=== PATIENT | female | born 1960 | race Two or more races ===

== ENCOUNTER 2020-01-13 14:31 | Outpatient (REF) | payer MEDICAID, SELFPAY ==
--- NOTE | 2020-01-13 | US_ITS ---
EXAMINATION: US RETROPERITONEAL LIMITED (RENAL ONLY) CLINICAL INFORMATION: Renal stones. COMPARISON: Renal ultrasound 05/31/2019 and 12/01/2018. KUB 01/20/2019 and 09/16/2018. CT abdomen and pelvis 12/21/2018. TECHNIQUE: Real-time imaging of the kidneys. FINDINGS: RIGHT KIDNEY: 12.6 x 5.0 x 6.0 cm (SAG x AP x TRV). The kidney is normal in size, contour, and echogenicity. Renal cortical thickness is normal. No focal solid mass or cyst seen. There are 3 echogenic stones: 1. The mid pole stone measures 0.3 x 0.3 x 0.2 cm. 2. A lower pole echogenic stone measures 0.3 x 0.3 x 0.3 cm. 3. A lower pole echogenic stone measures 0.3 x 0.4 x 0.3 cm. There is mild pelvic caliectasis, but no hydronephrosis. LEFT KIDNEY: 12.1 x 5.8 x 5.6 cm (SAG x AP x TRV). The kidney is normal in size, contour, and echogenicity. Renal cortical thickness is normal. No focal parenchymal lesions or hydronephrosis. There is an echogenic stone lower pole measuring 0.3 x 0.2 x 0.3 cm. US/US renal BI IMPRESSION: Nonobstructive echogenic calculi with mild pelvic caliectasis right kidney. No hydronephrosis seen. Echogenic stone left kidney without hydronephrosis.
== END 2020-01-13 14:32 | disposition home or self-care (01) ==
LOC: HO.US 14:31
PROVIDERS: Visit Provider Urology
DX: N20.0 Calculus of kidney (principal)
CPT/HCPCS: 76775

== ENCOUNTER 2020-02-28 13:41 | Outpatient (REF) | payer MEDICAID, SELFPAY | END 2020-02-28 13:42 | disposition home or self-care (01) | LOC: HO.LAB 13:41 | PROVIDERS: Visit Provider Internal Medicine | DX: Z20.828 Contact with and (suspected) exposure to other viral communicable diseases (principal) | CPT/HCPCS: C9803; U0003 ==

== ENCOUNTER 2020-05-03 13:06 | Outpatient (REF) | payer MEDICAID, SELFPAY ==
--- NOTE | ~2020-05-03 | US_ITS ---
EXAMINATION: US RETROPERITONEAL LIMITED (RENAL ONLY) CLINICAL INFORMATION: Kidney stones. COMPARISON: Renal ultrasound 01/13/2020 and 05/31/2019. KUB 01/20/2019 and 09/16/2018. CT abdomen and pelvis 12/21/2018. TECHNIQUE: Real-time imaging of the kidneys. FINDINGS: RIGHT KIDNEY: 11.9 x 5.1 x 6.7 cm (SAG x AP x TRV). The kidney is normal in size, contour, and echogenicity. Renal cortical thickness is normal. No focal parenchymal lesions or hydronephrosis. LEFT KIDNEY: 11.0 x 5.7 x 5.8 cm (SAG x AP x TRV). The kidney is normal in size, contour, and echogenicity. Renal cortical thickness is normal. No focal parenchymal lesions or hydronephrosis. US/US renal BI IMPRESSION: No significant renal abnormality.
== END 2020-05-03 13:07 | disposition home or self-care (01) ==
LOC: HO.US 13:06
PROVIDERS: Visit Provider Internal Medicine Hypertension Specialist
DX: N20.0 Calculus of kidney (principal)
CPT/HCPCS: 76775

== ENCOUNTER 2020-11-07 11:15 | Emergency (ER) | payer MEDICAID, SELFPAY ==
--- NOTE | 2020-11-07 | ECG_ITS ---
Test Reason : CHEST PAIN Blood Pressure : / mmHG Vent. Rate : 094 BPM Atrial Rate : 094 BPM P-R Int : 158 ms QRS Dur : 120 ms QT Int : 402 ms P-R-T Axes : 067 018 073 degrees QTc Int : 502 ms Normal sinus rhythm Non-specific intra-ventricular conduction delay Borderline ECG When compared with ECG of 07-NOV-2020 12:20, No significant change was found Referred By: Nadia Beard Electronically Signed By:LANCE MART
--- NOTE | ~2020-11-07 | XR_ITS ---
EXAMINATION: XR CHEST CLINICAL INFORMATION: Chest pain. COMPARISON: 10/29/2016 chest radiographs. TECHNIQUE: Frontal view of the chest was obtained. FINDINGS: The lungs are clear. The heart is unremarkable. A probable right epicardial fat pad is noted without interval change. The mediastinal structures are unremarkable. XR/XR chest 1V IMPRESSION: Stable chest. No acute cardiopulmonary process. .
[2020-11-07 12:14] VITALS: BP 176/100; PULSE 101; RESP 16; TEMP 36.9; O2SAT 95; BMI 49.6
--- NOTE | 2020-11-07 12:16 | ECG_ITS ---
Test Reason : CHEST PRESSURE Blood Pressure : / mmHG Vent. Rate : 097 BPM Atrial Rate : 097 BPM P-R Int : 160 ms QRS Dur : 110 ms QT Int : 388 ms P-R-T Axes : 068 015 069 degrees QTc Int : 492 ms Normal sinus rhythm Prolonged QT Abnormal ECG When compared with ECG of 29-OCT-2016 19:33, No significant change was found Referred By: Generic ED Physician Electronically Signed By:LANCE MART
[2020-11-07 13:01] LABS: MANUAL DIFF FLAG NO
[2020-11-07 13:04] LABS: Basophils Percent Auto 0.3 % (0-2); Eosinophils Absolute Auto 0.1 X10*3/uL (0.0-0.4); Eosinophils Percent Auto 1.5 % (0-4); Hematocrit 44.7 % (37-47); Hemoglobin 14.4 g/dl (12.0-16.0); Imm Gran Abs Auto 0.04 X10*3/uL (0.00-0.03); Imm Gran Pct Auto 0.4 % (0.0-0.4); Lymphocytes Absolute Auto 3.5 X10*3/uL (1.2-4.9); Lymphocytes Percent Auto 38.4 % (20-40); Mean Corpuscular HGB Conc 32.2 g/dl (31.0-35.0); Mean Corpuscular Hemoglobin 26.5 pg (27.0-33.0); Mean Corpuscular Volume 82.3 fL (80-98); Mean Platelet Volume 11.5 fL (9.4-12.3); Monocytes Absolute Auto 0.4 X10*3/uL (0.1-1.2); Monocytes Percent Auto 4.4 % (2-11); Neutrophils Absolute Auto 5.1 X10*3/uL (2.0-8.3); Platelet Count 245 X10*3/uL (160-400); Red Blood Count 5.43 X10*6/uL (4.20-5.50); Red Cell Distribution Width 13.9 % (11.0-16.0); White Blood Count 9.2 X10*3/uL (4.8-10.8)
[2020-11-07 13:39] LABS: Anion Gap 14 (12-20); Blood Urea Nitrogen 10 mg/dL (9-16); Calcium 9.9 mg/dL (8.4-10.2); Carbon Dioxide 29 mmol/L (22-29); Chloride 103 mmol/L (96-108); Creatinine Clr Calc Pharmacy 84.5; Estimated Glomerular Filt Rate > 60; Glucose Random 109 mg/dL (60-115); Potassium 4.1 mmol/L (3.3-5.1); Sodium 142 mmol/L (135-145)
[2020-11-07 13:43] LABS: Troponin-I High Sensitivity < 3.5 ng/L (<3.5-17.0)
--- NOTE | 2020-11-07 13:50 | ED.CHESTPAIN ---
HPI - Chest Pain General Chief Complaint: Chest Pain Stated Complaint: chest tightness, headache Time Seen by Provider: 11/07/20 13:50 Source: patient and bariatric physician Mode of arrival: ambulatory Limitations: no limitations History of Present Illness HPI narrative: 60 yo female here with 5 days of heaches and chest tightness no other symptoms states she doesn't usually get headaches she also notes that she always has chest pain - no trauma MD complaint: chest discomfort Onset (ago): day(s) (5 (but chronic)) Timing of current episode: constant Prior episodes: Yes Onset: during rest and during exertion Pain location: substernal Pain radiation: none Severity: moderate Quality: tightness Relieving factors: nothing Exacerbating factors: nothing Context: other (states also c/o headache as well) Associated symptoms: other (headaches gradual onset in the back no other symptoms tried advil without relief) Treatment prior to arrival: none Related Data Home Medications Medication Instructions Recorded Confirmed aspirin 81 mg tablet,delayed 81 mg PO DAILY 03/03/20 release (Adult Aspirin Regimen) atorvastatin 40 mg tablet 40 mg PO DAILY 03/03/20 bisacodyl 5 mg tablet,delayed 5 mg PO BEDTIME 03/03/20 release (Dulcolax (bisacodyl)) bupropion HCl 150 mg 24 hr tablet, 150 mg PO QAM 03/03/20 extended release clonazepam 1 mg tablet 1 mg PO DAILY 03/03/20 docusate sodium 100 mg capsule 100 mg PO DAILY 03/03/20 (DOK) glimepiride 2 mg tablet 2 mg PO DAILY 03/03/20 lisinopril 20 mg tablet 20 mg PO DAILY 03/03/20 metformin 1,000 mg tablet 1,000 mg PO DAILY 03/03/20 omeprazole 20 mg capsule,delayed 20 mg PO DAILY 03/03/20 release sertraline 50 mg tablet 50 mg PO DAILY 03/03/20 Previous Rx's Medication Instructions Recorded vnjbbysypr-hjuavpgmyeteq-ogsnajiv 1 tab PO Q6H PRN #20 tab 11/07/20 50 mg-325 mg-40 mg tablet Allergies Allergy/AdvReac Type Severity Reaction Status Date / Time No Known Allergies Allergy Unverified 12/02/19 16:55 [No Known Allergies*] Review of Systems Review of Systems: Constitutional : No Weight loss, No Fever, No Chills ENT/Mouth : No sore throat, No Rhinorrhea Eyes: No Eye Pain, No Swelling Cardiovascular : pos Chest Pain, no SOB, no Dyspnea on Exertion, No Orthopnea, No Edema, No Palpitations Respiratory : No Cough, No Sputum Gastrointestinal : no Nausea, No Vomiting, No Diarrhea, No abdominal Pain, No Hematochezia, No Melena Genitourinary : No Dysuria, No Urinary Frequency Musculoskeletal : No joint pain, No Myalgias, No Joint Swelling Skin : No Skin Lesions, No rash Neuro : No Weakness, No Numbness, No Dizziness, pos Headache Psych : No Anxiety/Panic, No Depression Heme/Lymph: No Bruising, No Lymphadenopathy Endocrine : No Polyuria, No Polydipsia All other systems reviewed and are negative [facility] Past Medical History Attestation statement: The following information was validated with the patient. Medical History Anxiety Asthma Depression GERD (gastroesophageal reflux disease) Hypercholesteremia Hypertension Social History Social History (Updated 11/07/20 @ 14:22 by Nadia Beard DO) Patient Tobacco Use Status: Never used Tobacco Advance Directives: No Advance Directives Information Provided: No Patient : No Physical Exam Vital Signs: Vital Signs: Last Vital Signs Temp 98.5 F 11/07/20 12:14 Pulse 87 11/07/20 15:32 Resp 18 11/07/20 15:32 BP 154/88 H 11/07/20 15:32 Pulse Ox 95 11/07/20 15:32 Body Mass Index 49.6 Course Course Course Narrative: VS drastically improved, stable for DC work up negative asking for food and watching TV MDM - Chest Pain MDM Narrative Medical decision making narrative: 60 yo female with hx of HTN, HLD, here with vague chest pain x 5 days which happens often to her seems atypical for ACS, not pleuritic in nature, states this happens all the time which seems unusual for PE, she also c/o headache no fevers, normal neuro not toxic no AC therapy, gradual onset seems atypical for SAH/[employer]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 infection Lab Data Result diagrams: 11/07/20 12:53 11/07/20 12:53 Labs: Lab Results 11/07/20 11/07/20 11/07/20 Range/Units 12:53 12:53 12:53 WBC 9.2 (4.8-10.8) X10*3/uL RBC 5.43 (4.20-5.50) X10*6/uL Hgb 14.4 (12.0-16.0) g/dl Hct 44.7 (37-47) % MCV 82.3 (80-98) fL MCH 26.5 L (27.0-33.0) pg MCHC 32.2 (31.0-35.0) g/dl RDW 13.9 (11.0-16.0) % Plt Count 245 (160-400) X10*3/uL MPV 11.5 (9.4-12.3) fL Immature Gran % (Auto) 0.4 (0.0-0.4) % Neut % (Auto) 55.0 (45-73) % Lymph % (Auto) 38.4 (20-40) % [place] % (Auto) 4.4 (2-11) % Eos % (Auto) 1.5 (0-4) % Baso % (Auto) 0.3 (0-2) % Lymph # (Auto) 3.5 (1.2-4.9) X10*3/uL [place] # (Auto) 0.4 (0.1-1.2) X10*3/uL Eos # (Auto) 0.1 (0.0-0.4) X10*3/uL Baso # (Auto) 0.0 (0.0-0.2) X10*3/uL Abs Immat Gran (auto) 0.04 H (0.00-0.03) X10*3/uL Absolute Neuts (auto) 5.1 (2.0-8.3) X10*3/uL Absolute Nucleated RBC 0.000 (0.0-0.012) X10*3/uL Nucleated RBC % (auto) 0.0 (0.0-0.2) /100WBC Sodium 142 (135-145) mmol/L Potassium 4.1 (3.3-5.1) mmol/L Chloride 103 (96-108) mmol/L Carbon Dioxide 29 (22-29) mmol/L Anion Gap 14 (12-20) BUN 10 (9-16) mg/dL Creatinine 0.84 (0.5-1.4) mg/dL Estim Creat Clear Calc 84.5 Estimated GFR > 60 Random Glucose 109 (60-115) mg/dL Calcium 9.9 (8.4-10.2) mg/dL Troponin I High Sens < 3.5 (<3.5-17.0) ng/L COVID-19 (CLYDE) (Negative) COVID-19 Clin Com 11/07/20 Range/Units 14:02 WBC (4.8-10.8) X10*3/uL RBC (4.20-5.50) X10*6/uL Hgb (12.0-16.0) g/dl Hct (37-47) % MCV (80-98) fL MCH (27.0-33.0) pg MCHC (31.0-35.0) g/dl RDW (11.0-16.0) % Plt Count (160-400) X10*3/uL MPV (9.4-12.3) fL Immature Gran % (Auto) (0.0-0.4) % Neut % (Auto) (45-73) % Lymph % (Auto) (20-40) % [place] % (Auto) (2-11) % Eos % (Auto) (0-4) % Baso % (Auto) (0-2) % Lymph # (Auto) (1.2-4.9) X10*3/uL [place] # (Auto) (0.1-1.2) X10*3/uL Eos # (Auto) (0.0-0.4) X10*3/uL Baso # (Auto) (0.0-0.2) X10*3/uL Abs Immat Gran (auto) (0.00-0.03) X10*3/uL Absolute Neuts (auto) (2.0-8.3) X10*3/uL Absolute Nucleated RBC (0.0-0.012) X10*3/uL Nucleated RBC % (auto) (0.0-0.2) /100WBC Sodium (135-145) mmol/L Potassium (3.3-5.1) mmol/L Chloride (96-108) mmol/L Carbon Dioxide (22-29) mmol/L Anion Gap (12-20) BUN (9-16) mg/dL Creatinine (0.5-1.4) mg/dL Estim Creat Clear Calc Estimated GFR Random Glucose (60-115) mg/dL Calcium (8.4-10.2) mg/dL Troponin I High Sens (<3.5-17.0) ng/L COVID-19 (CLYDE) Negative (Negative) COVID-19 Clin Com See Note ECG Data ECG #1: Attestation: I personally reviewed and interpreted this ECG as follows: ECG interpretation date: 11/07/20 ECG interpretation time: 13:59 Interpretation: Rate: 94 Rhythm: NSR [place]: normal Normal P waves. Normal SHAHBAZ. Normal QRS complex. ST T wave : inverted aVL no JIMBO qTC: normal prior studies: no acute ischemia, no sig change from priors The study has been interpreted contemporaneously by me. . Discharge Plan Discharge Clinical Impression: Atypical chest pain Acute tension headache Qualifiers: Intractability: not intractable Qualified Code(s): G44.209 - Tension-type headache, unspecified, not intractable Patient Disposition: Home, Self-Care Instructions: Chest Pain (ED), Acute Headache (ED) Additional Instructions: return to ED for any worsening symptoms or concerns Prescriptions: New enerjxrcdh-itcxaqdfkqica-mhkl 50-325-40 mg tablet 1 tab PO Q6H PRN (Reason: pain) Qty: 20 RF: 0 Referrals: Beba Whitten MD [Primary Care Provider] - 2 days (if not better) Print Language: [place] Islander
[2020-11-07] MEDS: Butalb/Acetamin/Caff 50/325/40 TABLET 1 TAB PO (14:20)
[2020-11-07] MEDS: Cyclobenzaprine HCl 10 MG TABLET PO (14:22)
[2020-11-07 14:26] LABS: COVID-19 Test Negative (Negative); IDNOW Serial# 9DD0AD1C
[2020-11-07 15:32] VITALS: BP 154/88; PULSE 87; RESP 18; O2SAT 95
== END 2020-11-07 15:48 | disposition home or self-care (01) ==
PROVIDERS: Emergency Provider Emergency Medicine; PCP Internal Medicine
DX: R07.89 Other chest pain (principal); G44.209 Tension-type headache, unspecified, not intractable; I10 Essential (primary) hypertension; E78.5 Hyperlipidemia, unspecified; Z20.822 Contact with and (suspected) exposure to COVID-19; Z79.82 Long term (current) use of aspirin; Z79.02 Long term (current) use of antithrombotics/antiplatelets; Z79.899 Other long term (current) drug therapy
CPT/HCPCS: 36415; 71045; 80048; 84484; 85025; 87635; 93005; 99284

== ENCOUNTER → 2020-12-07 08:21 | Outpatient (BNVA) | payer MEDICAID, SELFPAY | PROVIDERS: PCP Internal Medicine; Visit Provider Nurse Practitioner ==

== ENCOUNTER → 2021-01-09 15:37 | Outpatient (BNVA) | payer MEDICAID, SELFPAY | PROVIDERS: PCP Internal Medicine; Visit Provider Nurse Practitioner ==

== ENCOUNTER 2021-01-10 11:14 | Outpatient (REF) | payer MEDICAID, SELFPAY ==
--- NOTE | ~2021-01-10 | MM_ITS ---
EXAMINATION: MM SCREENING DIGITAL BREAST TOMOSYNTHESIS, BILATERAL CLINICAL INFORMATION: Screening. Asymptomatic. The lifetime risk of breast cancer based on the Tyrer-Cuzick Model is 6%. COMPARISON: Mammography: 07/18/2017, 06/19/2016, 10/26/2010 TECHNIQUE: Digital breast tomosynthesis is performed in both the craniocaudal and mediolateral oblique views along with computer-aided detection (CAD). Synthesized 2D images are generated from the tomosynthesis. FINDINGS: There are scattered areas of fibroglandular density (ACR BI-RADS breast composition Category b). There are no significant masses, abnormal calcifications, or other abnormalities. The axilla and skin contours are unremarkable. No significant changes. MM/MM tomosynthesis screening BI IMPRESSION: No mammographic evidence of malignancy. ASSESSMENT: BI-RADS 1: Negative RECOMMENDATION: Routine annual mammography screening. This patient's information was entered into a reminder system with a target due date for their next mammogram.
== END 2021-01-10 11:15 | disposition home or self-care (01) ==
LOC: HO.MAMMO 11:14
PROVIDERS: Visit Provider Internal Medicine
DX: Z12.31 Encounter for screening mammogram for malignant neoplasm of breast (principal)
CPT/HCPCS: 77063; 77067

== ENCOUNTER 2021-07-11 11:09 | Outpatient (RCR) | payer MEDICAID, SELFPAY ==
--- NOTE | 2021-08-08 10:54 | MHC.OT.DC ---
[address] [phone] F: [phone] Occupational Therapy Discharge Note Provider: Beba Whitten Diagnosis: B/L DEQUERVAIN'S TENOSYNOVITIS Date of Evaluation: 07/11/21 Date of Discharge: 08/08/21 Treatments to Date: 1 Cancellations to Date: 2 No Shows to Date: 4 Discharge Status: Visit Non-compliance Discharge Summary: MS HUMAIRA MELVIN ATTENDED HER INITIAL EVAL AND FAILED TO FOLLOW UP FOR ADDITIONAL VISITS. SHE WILL BE DISCHARGED DUE TO THE CORE NO SHOW ATTENDANCE POLICY. Electronically Signed By: RAVINDER FRAUSTO OTR/Bird Reviewed/agree with student documentation: N/A Therapist: Please Sign and return to therapist, thank you for your referral.
== END 2021-08-08 10:50 | disposition home or self-care (01) ==
LOC: HO.OT 11:09
PROVIDERS: PCP Internal Medicine; Visit Provider Internal Medicine
DX: M65.4 Radial styloid tenosynovitis [de Quervain] (principal)
CPT/HCPCS: 29130; 97110; 97166; 97760

== ENCOUNTER → 2022-01-02 11:13 | Outpatient (BNVA) | payer MEDICAID, SELFPAY | PROVIDERS: PCP Internal Medicine; Visit Provider Nurse Practitioner | DX: K59.04 Chronic idiopathic constipation (principal); K21.9 Gastro-esophageal reflux disease without esophagitis; R10.13 Epigastric pain; Z86.19 Personal history of other infectious and parasitic diseases | CPT/HCPCS: 99212 ==

== ENCOUNTER 2022-01-25 07:25 | Outpatient (REF) | payer MEDICAID, SELFPAY ==
--- NOTE | ~2022-01-25 | MM_ITS ---
EXAMINATION: MM SCREENING DIGITAL BREAST TOMOSYNTHESIS, BILATERAL CLINICAL INFORMATION: Screening. Asymptomatic. COMPARISON: Mammography: 01/10/2021, 07/18/2017, 06/19/2016 TECHNIQUE: Digital breast tomosynthesis is performed in both the craniocaudal and mediolateral oblique views along with computer-aided detection (CAD). Synthesized 2D images are generated from the tomosynthesis. FINDINGS: There are scattered areas of fibroglandular density (ACR BI-RADS breast composition Category b). There are no significant masses, abnormal calcifications, or other abnormalities. No developing density or architectural abnormality. Incidental small right axillary tail node similar to prior exam. The axilla and skin contours are unremarkable. MM/MM tomosynthesis screening BI IMPRESSION: No mammographic evidence of malignancy. ASSESSMENT: BI-RADS 2: Benign RECOMMENDATION: Routine annual mammography screening. This patient's information was entered into a reminder system with a target due date for their next mammogram.
== END 2022-01-25 07:26 | disposition home or self-care (01) ==
LOC: HO.MAMMO 07:25
PROVIDERS: PCP Internal Medicine; Visit Provider Internal Medicine
DX: Z12.31 Encounter for screening mammogram for malignant neoplasm of breast (principal)
CPT/HCPCS: 77063; 77067

== ENCOUNTER 2022-05-30 10:47 | Outpatient (REF) | payer MEDICAID, SELFPAY ==
--- NOTE | ~2022-05-30 | US_ITS ---
EXAMINATION: US RETROPERITONEAL LIMITED (RENAL ONLY) CLINICAL INFORMATION: Kidney stones. COMPARISON: Ultrasound retroperitoneal limited (renal only) 12/18/2020 and 05/03/2020. X-ray abdomen KUB 01/20/2019. CT abdomen without contrast 12/21/2018. X-ray abdomen KUB 09/16/2018. TECHNIQUE: Real-time imaging of the kidneys. FINDINGS: RIGHT KIDNEY: 12.2 x 4.5 x 6.2 cm (SAG x AP x TRV). The kidney is normal in size, contour, and echogenicity. Renal cortical thickness is normal. A 7 mm echogenic focus noted at the lower pole of the right kidney consistent with a non-obstructing calculus. At least 5 additional small calculi were seen on the 2019 CT scan. No additional calculi seen on this study. No Focal parenchymal lesions. No hydronephrosis. LEFT KIDNEY: 11.0 x 5.0 x 5.3 cm (SAG x AP x TRV). The kidney is normal in size, contour, and echogenicity. Renal cortical thickness is normal. A 4 mm echogenic focus is seen without twinkle artifact in the mid kidney which does not demonstrate strict criteria for calculus. However, a stone was seen in a similar location on the 12/21/2018 CT scan. No definite calculi or focal parenchymal lesions. No hydronephrosis. US/US renal BI IMPRESSION: Nonobstructing right lower pole renal calculus.
== END 2022-05-30 10:48 | disposition home or self-care (01) ==
LOC: HO.US 10:47
PROVIDERS: PCP Internal Medicine; Visit Provider Internal Medicine
DX: N20.0 Calculus of kidney (principal)
CPT/HCPCS: 76775

== ENCOUNTER → 2022-08-27 08:54 | Outpatient (BNVA) | payer MEDICAID, SELFPAY | PROVIDERS: Visit Provider Nurse Practitioner | DX: N20.0 Calculus of kidney (principal); R10.9 Unspecified abdominal pain; K59.04 Chronic idiopathic constipation; K21.9 Gastro-esophageal reflux disease without esophagitis; K59.9 Functional intestinal disorder, unspecified; R10.13 Epigastric pain; Z86.19 Personal history of other infectious and parasitic diseases | CPT/HCPCS: 99202; 99212 ==

== ENCOUNTER 2022-10-24 08:55 | Outpatient (REF) | payer MEDICAID, SELFPAY ==
--- NOTE | ~2022-10-24 | CT_ITS ---
EXAMINATION: CT of the abdomen and pelvis without contrast CLINICAL INFORMATION: Kidney stone COMPARISON: Previous renal ultrasound most recent May [address] of the abdomen and pelvis most recent December 2018 TECHNIQUE: Axial images through the abdomen and pelvis without oral or IV contrast. Sagittal and coronal reconstructions on the technologist workstation were performed. This CT examination was performed using dose optimization techniques as appropriate, variously including the following: *Automated exposure control *Adjustment of mA and/or kV according to patient size (this includes techniques or standardized protocols for targeted exams where dose is matched to indication/reason for exam; i.e. extremities or head) *Use of iterative reconstruction technique DLP 6 5 7 mg/cm FINDINGS: The lung bases are clear. Liver is normal. The gallbladder has been removed. Normal spleen, pancreas and adrenal glands. There are multiple bilateral renal stones. Largest right renal stone is a 5 x 2 mm stone in the right renal pelvis. Largest left renal stone measures 2 mm in the upper pole. There is mild right hydronephrosis. There is no left hydronephrosis. The ureters do not appear dilated. The bladder is empty. The uterus appears to have been removed. The left ovary is prominent measuring 3 x 4 x 3.6 cm in dimension and may contain 2 cysts largest measuring 2 cm. This is similar to December 2018. Right ovary appears unremarkable. No imaging follow-up recommended. Stool throughout the colon questionable for constipation. Small and large bowel is otherwise normal. The appendix is not identified with certainty. No inflammatory changes in the right lower quadrant. Small umbilical hernia containing fat. Shotty retroperitoneal lymphadenopathy. No ascites or enlarged lymph nodes. Degenerative changes of the spine. CT/CT kidney stone IMPRESSION: Bilateral renal stones. Mild right hydronephrosis from a 2 x 5 mm right UPJ stone.
== END 2022-10-24 08:56 | disposition home or self-care (01) ==
LOC: HO.CT 08:55
PROVIDERS: PCP Internal Medicine; Visit Provider Nurse Practitioner Family
DX: N20.0 Calculus of kidney (principal)
CPT/HCPCS: 74176

== ENCOUNTER 2022-11-11 11:42 | Outpatient (AMB) | payer MEDICAID, SELFPAY ==
--- NOTE | 2022-11-11 11:42 | A.OFFVIS_ITS ---
Intake Intake Visit Reasons: 2m/CT(set) Intake Note: Patient is present for follow up visit CT scan/flank pain (imaging 10/24/22) Urology Medications: Vitamin B6 Blood Thinner: aspirin Warp Picker Required: Yes Accompanied by: Self / Same As Patient Allergies No Known Allergies [No Known Allergies*] Allergy (Verified 11/11/22 13:16) Medication List - Last Reconciled 11/11/22 by STACIA Leach- aspirin (Adult Aspirin Regimen) 81 mg PO DAILY ewxnaclely-ivkvlsrommqqb-ttex 50-325-40 mg 1 tab PO Q6H PRN cholecalciferol (vitamin D3) (Vitamin D3) 10 mcg PO DAILY clonazepam 1 mg PO DAILY docusate sodium (DOK) 100 mg PO DAILY dulaglutide (Trulicity) 2 mg subcut QWEEK fluoxetine 20 mg PO BEDTIME fluticasone propionate 50 mcg/actuation 1 spray intranasal BID fluticasone propionate 110 mcg/actuation (Flovent HFA) 1 puff inhalation BID glimepiride 4 mg PO DAILY lamotrigine 50 mg PO BID linaclotide (Linzess) 290 mcg PO QAM 30 days lisinopril 40 mg PO DAILY loratadine (Allergy Relief (loratadine)) 10 mg PO DAILY metformin 1,000 mg PO BID metoclopramide HCl (Reglan) 5 mg PO QIDACHS pantoprazole (Protonix) 40 mg PO BID 30 days prednisone 20 mg PO daily 5 days pyridoxine (vitamin B6) 100 mg PO DAILY 90 days rosuvastatin 20 mg PO DAILY sertraline 50 mg PO DAILY tamsulosin 0.4 mg PO daily 14 days zolpidem 10 mg PO BEDTIME HPI HPI Comments History of Present Illness Details Marcia is a pleasant 62-year-old Somali-speaking female patient of Dr. Whitten. She has a past medical history of constipation, hypertension, hypercholesteremia, ЕЛЕНА, depression, diabetes, obesity, and GERD. She presents to the office today for follow-up. Of note, patient was seen approximately 2 months ago as a new patient for a longstanding history of nephrolithiasis at which time a CT KUB was ordered for further assessment evaluation. These results were reviewed with the patient today. Bilateral nonobstructing renal stones. Mild right hydronephrosis from a 2 x 5 mm right UPJ stone. When asked patient continues with bilateral flank pain radiating to lower abdominal area right side greater than left. She continues to report urinary urgency and frequency with feeling of incomplete bladder emptying. In office urinalysis results reviewed with the patient today. Discussed obtaining more recent imaging versus surgical intervention. Discussed risks versus benefits at length. All questions were answered. Discussed at length importance of drinking plenty of water daily. Discussed adding 1 oz of lemon juice to water daily. When asked she denies incontinence, changes to urinary stream, hematuria, dysuria, foul-smelling urine, fever, and or chills. Patient otherwise denies any other issues or concerns at this time. [facility] Medical History Anxiety Asthma Depression Diabetes GERD (gastroesophageal reflux disease) H. pylori infection Hypercholesteremia Hypertension ЕЛЕНА (obstructive sleep apnea) Surgical History H/O lithotripsy History of appendectomy History of carpal tunnel release History of cholecystectomy History of hysterectomy Hx of colonoscopy Social History Patient Tobacco Use Status: Never used Tobacco Review of Systems Const Reports as per HPI Eyes Reports no additional complaints ENT Reports no additional complaints Card Reports as per HPI Resp Reports as per HPI GI Reports as per HPI Reports as per HPI Psych Reports as per HPI Endo Reports no additional complaints Physical Exam Const General: cooperative, healthy appearing, comfortable, no acute distress, well developed, alert and awake Nutritional Appearance: overweight Orientation/consciousness: patient oriented x3 Limitations: no limitations HEENT Head: Yes normal to inspection, Yes normocephalic and Yes atraumatic Ears: hearing grossly normal bilaterally Eyes General: appearance normal, both eyes and all related structures Neck Neck: Yes normal visual inspection and Yes trachea midline Chest Chest palpation & inspection: normal inspection of the chest Resp Effort & Inspection: normal respiratory effort and able to speak in complete sentences Cardio Rate: regular rate GI Inspection: Yes normal to inspection General: Yes no CVA tenderness Back/Spine/Pelvis Back: no CVA tenderness Skin General skin exam: no rashes or lesions noted Neuro General: patient oriented x3 Extrem General: Yes normal to inspection Psych Appearance: grossly normal and well kempt Mental Status: mental status grossly normal Speech and movement: Normal speech and movement present and Clear speech present Affect: normal affect Attitude: cooperative Thought process: Normal thought process present Thought content: Normal thought content present Insight: Fair insight present (Psych) Judgement: Fair judgement present (Psych) Results AMB Urinalysis, Automated UA Leukoctes 70 Prosper/uL Last Edit by [email or web address] on 11/11/22 11:53 UA Nitrite Negative Last Edit by [email or web address] on 11/11/22 11:53 UA Urobilinogen 0.2 mg/dL Last Edit by [email or web address] on 11/11/22 11:53 UA Protein 0 mg/dL Last Edit by [email or web address] on 11/11/22 11:53 UA pH 6.0 Last Edit by [email or web address] on 11/11/22 11:53 UA Blood 0 Vijay/uL Last Edit by [email or web address] on 11/11/22 11:53 UA Specific [place] 1.025 Last Edit by [email or web address] on 11/11/22 11:53 UA Ketone Negative Last Edit by [employer] on 11/11/22 11:53 UA Bilirubin 0 mg/dL Last Edit by [employer] on 11/11/22 11:53 UA Glucose 0 mg/dL Last Edit by [email or web address] on 11/11/22 11:53 Results Reviewed Results Reviewed: Laboratory Last Values Urine pH (Auto) 6.0 11/11/22 11:48 Specific [place] (Auto) 1.025 11/11/22 11:48 Urine Protein (Auto) 0 mg/dL 11/11/22 11:48 Glucose (UA)(Auto) 0 mg/dL 11/11/22 11:48 Urine Ketones (Auto) Negative 11/11/22 11:48 Urine Blood (Auto) 0 Vijay/uL 11/11/22 11:48 Urine Nitrite (Auto) Negative 11/11/22 11:48 Urine Bilirubin (Auto) 0 mg/dL 11/11/22 11:48 Urine Urobilinogen (Auto) 0.2 mg/dL 11/11/22 11:48 Leukocyte Esterase (Auto) 70 Prosper/uL 11/11/22 11:48 Date of Service: 10/24/22 EXAMINATION: CT of the abdomen and pelvis without contrast FINDINGS: The lung bases are clear. Liver is normal. The gallbladder has been removed. Normal spleen, pancreas and adrenal glands. There are multiple bilateral renal stones. Largest right renal stone is a 5 x 2 mm stone in the right renal pelvis. Largest left renal stone measures 2 mm in the upper pole. There is mild right hydronephrosis. There is no left hydronephrosis. The ureters do not appear dilated. The bladder is empty. The uterus appears to have been removed. The left ovary is prominent measuring 3 x 4 x 3.6 cm in dimension and may contain 2 cysts largest measuring 2 cm. This is similar to December 2018. Right ovary appears unremarkable. No imaging follow-up recommended. Stool throughout the colon questionable for constipation. Small and large bowel is otherwise normal. The appendix is not identified with certainty. No inflammatory changes in the right lower quadrant. Small umbilical hernia containing fat. Shotty retroperitoneal lymphadenopathy. No ascites or enlarged lymph nodes. Degenerative changes of the spine. IMPRESSION: Bilateral renal stones. Mild right hydronephrosis from a 2 x 5 mm right UPJ stone. Assessment & Plan Assessment & Plan (1) Hydronephrosis: Code(s): N13.30 - Unspecified hydronephrosis (2) Nephrolithiasis: Code(s): N20.0 - Calculus of kidney Plan: Ureteroscopy We discussed the nature of the decision and reasonable alternatives for performing ureteroscopy. Options such as medical therapy were discussed. Interventions include chemical dissolution, ESWL, ureteroscopy with laser lithotripsy and stent placement, PCNL. The relative uncertainties and benefits related to each alternate procedure were adequately discussed. General surgical risks including, but not limited to - pain, bleeding, infection, myocardial infarction, pulmonary embolus, deep vein thrombosis and cerebrovascular accident which may result in further hospitalization were discussed.? Full disclosure of the procedure as well as all major risks, benefits and complications were discussed including but not limited to damage to the urethra, bladder and kidney infection, damage to the ureter, stent migration or malposition, scarring to the renal pelvis, remnant stone fragments, subsequent stone passage with need for secondary procedures. The overall secondary procedure rate is approximately 10-15%.? The overall clearance rate is approximately 90-95%. Success of the procedure in the short-term does not necessarily guarantee that long-term success will be maintained. Suitable follow up will need to be maintained. The patient showed understanding of discussion and wishes to proceed with - cystoscopy, retrograde, ureteroscopy, possible lithotripsy/stone basketing and stent on the right side Plan In office urinalysis results reviewed with the patient today; as noted above. CT KUB results reviewed with the patient today; as noted above. Patient continues to report bilateral flank pain radiating to lower abdominal area right side greater than left and reports bladder fullness with urinary urgency and frequency. Discussed obtaining retroperitoneal ultrasound for further assessment evaluation as CT from greater than 2 weeks ago and patient unsure if she has passed stone Start Flomax and prednisone as discussed and prescribed. Discussed OTC Tylenol and or Motrin as needed for pain. Discussed, educated, encouraged on the importance of drinking plenty of water daily. Strainer provided. Discussed arranging for cystoscopy, retrograde, ureteroscopy, possible lithotripsy/stone basketing and stent on the right side if ultrasound continues to show hydronephrosis related to obstructing stone with Dr. Ornelas as planned and discussed. Discussed risks and benefits of surgical procedure verses surveillance monitoring. Orders: Orders US retroperitoneal comp Today N13.30 - Unspecified hydronephrosis, N20.0 - Calculus of kidney CT kidney stone Today N13.30 - Unspecified hydronephrosis, N20.0 - Calculus of kidney AMB Urinalysis Automated Today Z13.9 - Encounter for screening, unspecified Medications: New tamsulosin 0.4 mg PO daily 14 days 14 caps 1RF prednisone 20 mg PO daily 5 days 5 tabs 0RF Patient Instructions: The patient had an opportunity to ask questions regarding the treatment plan. All questions were answered. Physical exam, labs, and imaging were discussed and reviewed in detail. As well as risks, benefits, and discussion of treatment choices. No major barriers to understanding were identified. The patient expressed understanding and agreement with the above treatment plan. The patient was made aware they should contact our office by phone for worsening of their current condition, the appearance of new symptoms, or with any questions or concerns. Compliance is encouraged with any medications and follow up testing that is ordered. It is a privilege to be allowed the opportunity to participate in? your urological care.? Again, if you have any questions or concerns If you have any questions or concerns please do not hesitate to contact me. The office is [phone]. This note is constructed using voice recognition software. While every effort has been made to ensure accuracy director account management errors may have been included. Yours sincerely, JH LeachP-BC Coding Level of Care Code Est Pt Level 4 (50725) Diagnoses Hydronephrosis N13.30 Nephrolithiasis N20.0
== END 2022-11-11 12:33 | disposition home or self-care (01) ==
PROVIDERS: PCP Internal Medicine; Visit Provider Nurse Practitioner Family
DX: N13.30 Unspecified hydronephrosis (principal); N20.0 Calculus of kidney; Z13.9 Encounter for screening, unspecified
CPT/HCPCS: 99214

== ENCOUNTER → 2022-11-11 11:42 | Outpatient (BNVA) | payer MEDICAID, SELFPAY | PROVIDERS: PCP Internal Medicine; Visit Provider Nurse Practitioner Family | DX: N13.2 Hydronephrosis with renal and ureteral calculous obstruction (principal) | CPT/HCPCS: 81003; 99212; 99214 ==

== ENCOUNTER 2022-11-14 13:42 | Outpatient (REF) | payer MEDICAID, SELFPAY ==
--- NOTE | ~2022-11-14 | US_ITS ---
EXAMINATION: US RETROPERITONEAL COMPLETE (RENAL) CLINICAL INFORMATION: Evaluate hydronephrosis. COMPARISON: CT abdomen/pelvis 10/24/2022. TECHNIQUE: Real-time imaging of the kidneys and bladder. FINDINGS: RIGHT KIDNEY: 11.4 x 5.3 x 5.3 cm (SAG x AP x TRV). The kidney is normal in size, contour, and echogenicity. Renal cortical thickness is normal. No focal parenchymal lesions or hydronephrosis. Nonobstructive 0.4 cm calculus in the lower pole. LEFT KIDNEY: 10.7 x 5.6 x 5.5 cm (SAG x AP x TRV). The kidney is normal in size, contour, and echogenicity. Renal cortical thickness is normal. No renal calculi or hydronephrosis. There is a complex 1.2 cm cyst in the medial surface of the interpolar kidney with some internal heterogeneity, also correlating with a minimally heterogeneous cyst on the CT from 10/24/2022. Not identified on prior ultrasound from 05/30/2022, and not well seen on prior CT from 12/21/2018. BLADDER: Bladder is decompressed. Bilateral ureteral jets are demonstrated. Prevoid bladder volume is 8 mL. Postvoid bladder volume is 7 mL. US/US retroperitoneal comp IMPRESSION: 1. Nonobstructive 0.4 cm calculus in the lower pole of the right kidney. 2. Complex 1.2 cm cyst in the medial surface of the interpolar left kidney, recommend further characterization with an MRI with and without IV contrast, alternatively a follow-up ultrasound in 6 months could be obtained for reevaluation.
== END 2022-11-14 13:43 | disposition home or self-care (01) ==
LOC: HO.US 13:42
PROVIDERS: PCP Internal Medicine; Visit Provider Nurse Practitioner Family
DX: N13.30 Unspecified hydronephrosis (principal); N20.0 Calculus of kidney
CPT/HCPCS: 76770

== ENCOUNTER 2022-12-06 12:22 | Outpatient (REF) | payer MEDICAID, SELFPAY ==
--- NOTE | ~2022-12-06 | XR_ITS ---
EXAMINATION: XR HAND, LEFT XR HIP, LEFT CLINICAL INFORMATION: Left hand pain. Left hip pain. COMPARISON: None. TECHNIQUE: 3 views of left hand. AP radiograph of the pelvis. AP and frog-lateral views of the left hip. FINDINGS: LEFT HAND: No fracture or malalignment. Mild degenerative changes of the interphalangeal joints. No periarticular osteopenia, erosions, or suspicious soft tissue calcifications. LEFT HIP: No fracture or malalignment. No significant degenerative findings of the left hip. There is mild right hip osteoarthritis. No suspicious bone lesion or soft tissue calcification. XR/XR hip LT min 2V IMPRESSION: 1. Mild left hand osteoarthritis. 2. Mild right hip osteoarthritis. No significant degenerative findings of the left hip.
--- NOTE | ~2022-12-06 | XR_ITS ---
EXAMINATION: XR HAND, LEFT XR HIP, LEFT CLINICAL INFORMATION: Left hand pain. Left hip pain. COMPARISON: None. TECHNIQUE: 3 views of left hand. AP radiograph of the pelvis. AP and frog-lateral views of the left hip. FINDINGS: LEFT HAND: No fracture or malalignment. Mild degenerative changes of the interphalangeal joints. No periarticular osteopenia, erosions, or suspicious soft tissue calcifications. LEFT HIP: No fracture or malalignment. No significant degenerative findings of the left hip. There is mild right hip osteoarthritis. No suspicious bone lesion or soft tissue calcification. XR/XR hand LT min 3V IMPRESSION: 1. Mild left hand osteoarthritis. 2. Mild right hip osteoarthritis. No significant degenerative findings of the left hip.
== END 2022-12-06 12:23 | disposition home or self-care (01) ==
LOC: HO.HHCX 12:22
PROVIDERS: Visit Provider Internal Medicine
DX: M16.12 Unilateral primary osteoarthritis, left hip (principal); G57.12 Meralgia paresthetica, left lower limb
CPT/HCPCS: 73130; 73502

== ENCOUNTER 2022-12-09 15:40 | Emergency (ER) | payer MEDICAID, SELFPAY ==
--- NOTE | 2022-12-09 15:44 | ECG_ITS ---
Test Reason : CHEST PAIN Blood Pressure : / mmHG Vent. Rate : 098 BPM Atrial Rate : 098 BPM P-R Int : 164 ms QRS Dur : 116 ms QT Int : 378 ms P-R-T Axes : 071 031 074 degrees QTc Int : 482 ms Normal sinus rhythm Incomplete right bundle branch block Prolonged QT Abnormal ECG When compared with ECG of 07-NOV-2020 13:57, No significant change was found Referred By: Generic ED Physician Electronically Signed By:LANCE MART
[2022-12-09 16:15] VITALS: BP 171/97; PULSE 102; RESP 18; TEMP 36.8; O2SAT 94; BMI 45.2
[2022-12-09 17:07] LABS: MANUAL DIFF FLAG NO
[2022-12-09 17:08] LABS: Basophils Percent Auto 0.3 % (0-2); Eosinophils Absolute Auto 0.2 X10*3/uL (0.0-0.4); Eosinophils Percent Auto 1.7 % (0-4); Hematocrit 49.1 % (37.0-47.0); Hemoglobin 16.2 g/dl (12.0-16.0); Imm Gran Abs Auto 0.01 X10*3/uL (0.00-0.03); Imm Gran Pct Auto 0.1 % (0.0-0.4); Lymphocytes Absolute Auto 3.5 X10*3/uL (1.2-4.9); Lymphocytes Percent Auto 40.1 % (20-40); Mean Corpuscular Hemoglobin 26.5 pg (27.0-33.0); Mean Corpuscular Volume 80.2 fL (80.0-98.0); Mean Platelet Volume 11.8 fL (9.4-12.3); Monocytes Absolute Auto 0.5 X10*3/uL (0.1-1.2); Monocytes Percent Auto 5.7 % (2-11); Neutrophils Absolute Auto 4.5 x10*3/uL (2.0-8.3); Neutrophils Percent Auto 52.1 % (45-73); Platelet Count 199 X10*3/uL (160-400); Red Blood Count 6.12 X10*6/uL (4.20-5.50); Red Cell Distribution Width 14.3 % (11.0-16.0); White Blood Count 8.6 X10*3/uL (4.8-10.8)
[2022-12-09 17:20] LABS: Anion Gap 18 (12-20); Blood Urea Nitrogen 16 mg/dL (9-16); Calcium 10.3 mg/dL (8.4-10.2); Carbon Dioxide 26 mmol/L (22-29); Chloride 104 mmol/L (96-108); Creatinine Clr Calc Pharmacy 85.1; Estimated Glomerular Filt Rate > 60; Glucose Random 132 mg/dL (60-115); Potassium 3.7 mmol/L (3.3-5.1); Sodium 144 mmol/L (135-145)
[2022-12-09 17:29] LABS: Troponin-I High Sensitivity < 2.7 ng/L (<3.5-17.0)
[2022-12-09 21:49] VITALS: BP 140/72; PULSE 91; RESP 16; TEMP 36.6; O2SAT 94
--- NOTE | 2022-12-09 22:08 | ED.GENADULT ---
HPI - General Adult General Chief complaint: General Medical Stated complaint: headache,high bp chest pain x4days Time Seen by Provider: 12/09/22 21:53 Source: patient, RN notes reviewed, old records reviewed and extension course coordinator Mode of arrival: ambulatory Limitations: language barrier History of Present Illness HPI narrative: 62-year-old female with past medical history significant for obesity, GERD, hypertension presents for evaluation of headache, chest pain. Patient reports that her headache started 4 days ago. She feels that the pain starts in the back of her neck shoulders and neck and goes up over the back of her head She states that her chest pain started this morning around 10:00 a.m. She checked her blood pressure and it was ?171/105. She reports that she took an extra dose of her lisinopril Denies any trauma to the head or neck. She reports that her symptoms all came on gradually about worsening until today No other complaints or concerns at this time On review of her medical records, the patient was seen here 2 years ago for a very similar presentation She reports her symptoms are reminiscent of that episode Related Data Home Medications Medication Instructions Recorded Confirmed aspirin 81 mg tablet,delayed 81 mg PO DAILY 03/03/20 12/07/20 release (Adult Aspirin Regimen) clonazepam 1 mg tablet 1 mg PO DAILY 03/03/20 12/07/20 docusate sodium 100 mg capsule 100 mg PO DAILY 03/03/20 12/07/20 (DOK) sertraline 50 mg tablet 50 mg PO DAILY 03/03/20 12/07/20 cholecalciferol (vitamin D3) 10 10 mcg PO DAILY 01/02/22 mcg (400 unit) tablet (Vitamin D3) fluticasone propionate 110 1 puff inhalation BID 01/02/22 mcg/actuation HFA aerosol inhaler (Flovent HFA) fluticasone propionate 50 1 spray intranasal BID 01/02/22 mcg/actuation nasal spray,suspension glimepiride 4 mg tablet 4 mg PO DAILY 01/02/22 lamotrigine 100 mg tablet 50 mg PO BID 01/02/22 lisinopril 40 mg tablet 40 mg PO DAILY 01/02/22 loratadine 10 mg tablet (Allergy 10 mg PO DAILY 01/02/22 Relief (loratadine)) metformin 1,000 mg tablet 1,000 mg PO BID 10/19/22 rosuvastatin 20 mg tablet 20 mg PO DAILY 01/02/22 zolpidem 10 mg tablet 10 mg PO BEDTIME 01/02/22 dulaglutide 1.5 mg/0.5 mL 2 mg subcut QWEEK 08/27/22 subcutaneous pen injector (Trulicity) fluoxetine 20 mg capsule 20 mg PO BEDTIME 08/27/22 Previous Rx's Medication Instructions Recorded xivzbofaau-tvsewbmwqjfak-odnutxsx 1 tab PO Q6H PRN pain #20 tabs 11/07/20 50 mg-325 mg-40 mg tablet pantoprazole 40 mg tablet,delayed 40 mg PO BID 30 days #60 tabs 01/02/22 release (Protonix) linaclotide 290 mcg capsule 290 mcg PO QAM 30 days #30 caps 07/31/22 (Linzess) metoclopramide HCl 5 mg tablet 5 mg PO QIDACHS #120 tabs 08/27/22 (Reglan) pyridoxine (vitamin B6) 100 mg 100 mg PO DAILY 90 days #90 tabs 08/27/22 tablet prednisone 20 mg tablet 20 mg PO daily 5 days #5 tabs 11/11/22 tamsulosin 0.4 mg capsule 0.4 mg PO daily 14 days #14 caps 11/11/22 vjgshzzmst-klgtmsaazjkav-amayugha 1 cap PO TID PRN headache #15 caps 12/09/22 50 mg-300 mg-40 mg capsule (Fioricet) Allergies Allergy/AdvReac Type Severity Reaction Status Date / Time No Known Allergies Allergy Verified 11/11/22 13:16 [No Known Allergies*] Review of Systems Constitutional: Constitutional: Denies chills, Denies fever(s) and Reports headache(s) Eyes: Eyes: Denies blurry vision ENT: Denies vertigo, Denies dizziness, Reports headache(s) and Denies sore throat Cardiovascular: Cardiovascular: Denies chest pain and Denies dyspnea Respiratory: Respiratory: Denies cough and Denies dyspnea Gastrointestinal: Gastrointestinal: Denies abdominal pain, Denies nausea and Denies vomiting Musculoskeletal: Musculoskeletal: Denies back pain Integumentary/Breasts: Skin/Breast: Denies rash Neurologic: Denies confusion, Denies vertigo, Denies dizziness, Reports headache(s) and Denies focal weakness Psychiatric: Psychiatric: Denies confusion PMFSH Past Medical History Medical History Anxiety Asthma Depression Diabetes GERD (gastroesophageal reflux disease) H. pylori infection Hypercholesteremia Hypertension ЕЛЕНА (obstructive sleep apnea) Surgical History H/O lithotripsy History of appendectomy History of carpal tunnel release History of cholecystectomy History of hysterectomy Hx of colonoscopy Social History Social History Patient Tobacco Use Status: Never used Tobacco Advance Directives: No Advance Directives Information Provided: No Physical Exam ED Vital Signs: Vital Signs - 24 hr 12/09/22 16:15 12/09/22 21:49 Temperature 98.2 F 97.9 F Pulse Rate 102 H 91 Respiratory Rate 18 16 Blood Pressure 171/97 H 140/72 H Pulse Oximetry 94 94 Oxygen Delivery Method Room Air Room Air BMI result Body Mass Index 45.2 Const General: No confusion Nutritional Appearance: well nourished Orientation/consciousness: No confusion HENAR Head: Yes normocephalic and Yes atraumatic Eyes Eyelids: Yes eyelids normal Conjunctivae: conjunctivae normal Sclerae: sclerae normal Corneas: corneas normal Pupils: Equal, round and reactive pupils present EOM: EOMs intact bilaterally Neck Neck: Yes full ROM Resp Effort & Inspection: normal respiratory effort, able to speak in complete sentences and not labored Cardio Rate: regular rate Rhythm: regular rhythm GI Inspection: No distended Palpation (GI): Soft to palpation, not firm, nontender, no guarding and not rigid Skin General skin exam: elasticity normal Neuro General: No confusion Cranial nerves: Yes CN's II-XII intact bilaterally, Yes Equal, round and reactive pupils present and Yes Bilaterally intact EOM present Cognition (Neuro): normal cognition Extrem Other: Moving all extremities well without any obvious deformities Medical Decision Making Medical Decision Making MDM Narrative: 62-year-old female presents for evaluation of headache, chest pain. Her workup in the ER was reassuring. Her headache started 4 days ago with gradual on that. This would make subarachnoid hemorrhage less likely. She has no neuro deficits. EKG is nonischemic, labs are unremarkable. Troponin is negative despite over 12 hours of chest pain. This effectively rules out ACS. The patient's last presentation for similar complaints was diagnosed with tension headache which is consistent with the patient's presentation today. We will treat with Fioricet Differential Diagnosis Differential Diagnoses: The differential diagnosis associated with the presentation includes Acute headache Tension headache Migraine headache ACS Chest pain Costochondritis Anxiety Lab Data MDM Lab Attestation statement: I reviewed the patient's lab results. No leukocytosis. The patient's H&H are slightly elevated to 16.2 in 49.1. This may be related to dehydration count. Electrolytes within normal range. No renal dysfunction 12/09/22 17:03 12/09/22 17:03 Labs: Lab Results 12/09/22 Range/Units 17:03 WBC 8.6 (4.8-10.8) X10*3/uL RBC 6.12 H (4.20-5.50) X10*6/uL Hgb 16.2 H (12.0-16.0) g/dl Hct 49.1 H (37.0-47.0) % MCV 80.2 (80.0-98.0) fL MCH 26.5 L (27.0-33.0) pg MCHC 33.0 (31.0-35.0) g/dl RDW 14.3 (11.0-16.0) % Plt Count 199 (160-400) X10*3/uL MPV 11.8 (9.4-12.3) fL Immature Gran % (Auto) 0.1 (0.0-0.4) % Neut % (Auto) 52.1 (45-73) % Lymph % (Auto) 40.1 H (20-40) % [place] % (Auto) 5.7 (2-11) % Eos % (Auto) 1.7 (0-4) % Baso % (Auto) 0.3 (0-2) % Lymph # (Auto) 3.5 (1.2-4.9) X10*3/uL [place] # (Auto) 0.5 (0.1-1.2) X10*3/uL Eos # (Auto) 0.2 (0.0-0.4) X10*3/uL Baso # (Auto) 0.0 (0.0-0.2) X10*3/uL Abs Immat Gran (auto) 0.01 (0.00-0.03) X10*3/uL Absolute Neuts (auto) 4.5 (2.0-8.3) x10*3/uL Absolute Nucleated RBC 0.000 (0.0-0.012) X10*3/uL Nucleated RBC % (auto) 0.0 (0.0-0.2) /100WBC Sodium 144 (135-145) mmol/L Potassium 3.7 (3.3-5.1) mmol/L Chloride 104 (96-108) mmol/L Carbon Dioxide 26 (22-29) mmol/L Anion Gap 18 (12-20) BUN 16 (9-16) mg/dL Creatinine 0.80 (0.5-1.4) mg/dL Estim Creat Clear Calc 85.1 Estimated GFR > 60 Random Glucose 132 H (60-115) mg/dL Calcium 10.3 H (8.4-10.2) mg/dL Troponin I High Sens < 2.7 (<3.5-17.0) ng/L Independent Interpretation I performed an independent interpretation of an: EKG (Sinus rhythm with rate of 98 beats per minute. No ST segment elevations or depressions. QTC slightly prolonged to 482) Discharge Plan Discharge Clinical Impression: Acute headache, Chest pain Patient Disposition: Home, Self-Care Instructions: Acute Headache (ED) Additional Instructions: Your workup in the emergency room today was reassuring. This includes your blood work, physical exam and EKG. Your symptoms are most likely related to a tension headache. Take the prescribed Fioricet as needed for headaches Prescriptions: New uuqobkwdgp-epzssgsukimki-hcme [Fioricet] 50-300-40 mg capsule 1 cap PO TID PRN (Reason: headache) Qty: 15 0RF No Action Linzess 290 mcg capsule 290 mcg PO QAM 30 Days Qty: 30 6RF uafxoctoru-huslxzweouohc-ltvo 50-325-40 mg tablet 1 tab PO Q6H PRN (Reason: pain) Qty: 20 0RF docusate sodium [DOK] 100 mg capsule 100 mg PO DAILY sertraline 50 mg tablet 50 mg PO DAILY clonazepam 1 mg tablet 1 mg PO DAILY aspirin [Adult Aspirin Regimen] 81 mg tablet,delayed release (DR/EC) 81 mg PO DAILY metformin 1,000 mg tablet 1,000 mg PO BID rosuvastatin 20 mg tablet 20 mg PO DAILY glimepiride 4 mg tablet 4 mg PO DAILY lisinopril 40 mg tablet 40 mg PO DAILY loratadine [Allergy Relief (loratadine)] 10 mg tablet 10 mg PO DAILY fluticasone propionate 50 mcg/actuation spray,suspension 1 spray intranasal BID cholecalciferol (vitamin D3) [Vitamin D3] 10 mcg (400 unit) tablet 10 mcg PO DAILY lamotrigine 100 mg tablet 50 mg PO BID zolpidem 10 mg tablet 10 mg PO BEDTIME fluticasone propionate [Flovent HFA] 110 mcg/actuation HFA aerosol inhaler 1 puff inhalation BID pantoprazole [Protonix] 40 mg tablet,delayed release (DR/EC) 40 mg PO BID 30 Days Qty: 60 6RF pyridoxine (vitamin B6) 100 mg tablet 100 mg PO DAILY 90 Days Qty: 90 1RF tamsulosin 0.4 mg capsule 0.4 mg PO daily 14 Days Qty: 14 1RF prednisone 20 mg tablet 20 mg PO daily 5 Days Qty: 5 0RF Trulicity 1.5 mg/0.5 mL pen injector 2 mg subcut QWEEK fluoxetine 20 mg capsule 20 mg PO BEDTIME metoclopramide HCl [Reglan] 5 mg tablet 5 mg PO QIDACHS Qty: 120 3RF Rx Instructions: provider is aware of possible interactions and is monitoring.
[2022-12-09] MEDS: Butalb/Acetamin/Caff 50/325/40 TABLET 1 TAB PO (22:16)
== END 2022-12-09 22:27 | disposition home or self-care (01) ==
PROVIDERS: Emergency Provider Internal Medicine; PCP Internal Medicine
DX: R51.9 Headache, unspecified (principal); R07.9 Chest pain, unspecified; E11.9 Type 2 diabetes mellitus without complications; I10 Essential (primary) hypertension; E78.00 Pure hypercholesterolemia, unspecified; Z79.82 Long term (current) use of aspirin; Z79.899 Other long term (current) drug therapy; Z79.84 Long term (current) use of oral hypoglycemic drugs; Z79.85 Long-term (current) use of injectable non-insulin antidiabetic drugs
CPT/HCPCS: 36415; 80048; 84484; 85025; 93005; 99283; 99285

== ENCOUNTER 2023-06-04 09:45 | Outpatient (REF) | payer MEDICAID, SELFPAY ==
[2023-06-04 11:25] LABS: MANUAL DIFF FLAG NO
[2023-06-04 11:50] LABS: Basophils Percent Auto 0.4 % (0-2); Eosinophils Absolute Auto 0.1 X10*3/uL (0.0-0.4); Eosinophils Percent Auto 1.5 % (0-4); Hematocrit 46.3 % (37.0-47.0); Hemoglobin 15.1 g/dl (12.0-16.0); Imm Gran Abs Auto 0.01 X10*3/uL (0.00-0.03); Imm Gran Pct Auto 0.1 % (0.0-0.4); Lymphocytes Absolute Auto 2.9 X10*3/uL (1.2-4.9); Lymphocytes Percent Auto 39.9 % (20-40); Mean Corpuscular HGB Conc 32.6 g/dl (31.0-35.0); Mean Corpuscular Hemoglobin 27.2 pg (27.0-33.0); Mean Corpuscular Volume 83.3 fL (80.0-98.0); Mean Platelet Volume 12.2 fL (9.4-12.3); Monocytes Absolute Auto 0.5 X10*3/uL (0.1-1.2); Monocytes Percent Auto 6.5 % (2-11); Neutrophils Absolute Auto 3.8 x10*3/uL (2.0-8.3); Neutrophils Percent Auto 51.6 % (45-73); Platelet Count 197 X10*3/uL (160-400); Red Blood Count 5.56 X10*6/uL (4.20-5.50); Red Cell Distribution Width 13.8 % (11.0-16.0); White Blood Count 7.3 X10*3/uL (4.8-10.8)
[2023-06-04 11:59] LABS: Rheumatoid Factor < 13.0 IU/mL (<15.0)
[2023-06-04 12:29] LABS: Creatinine Urine 185.21 mg/dL; Microalbum/Creatinine Ratio Ur 180.3 ug/mg cr (<30)
[2023-06-04 12:35] LABS: Anion Gap 15 (12-20); Blood Urea Nitrogen 10 mg/dL (9-16); C Reactive Protein 0.72 mg/dL (< or = 0.50); Carbon Dioxide 27 mmol/L (22-29); Chloride 104 mmol/L (96-108); Cholesterol 256 mg/dL (<200); Estimated Glomerular Filt Rate > 60; Glucose Random 95 mg/dL (60-115); HDL Cholesterol 46 mg/dL (>40); LDL Cholesterol Calculated 131 mg/dL (<100); Potassium 3.8 mmol/L (3.3-5.1); Sodium 142 mmol/L (135-145); Triglycerides 399 mg/dL (<150); Vitamin D 25-OH Total 33.6 ng/mL (>30)
[2023-06-04 12:49] LABS: Reflex LDLD? No
[2023-06-04 12:50] LABS: HBc Num1 0.13 S/CO (0.00-0.79); HBsAGNum1 0.29 S/CO (0.00-0.99); Hepatitis B Core Antibody Nonreactive (Nonreactive); Hepatitis B Surface Antigen Negative (Negative); ~HepC Num1 0.21 S/CO (0.00-0.79); ~Hepatitis A Antibody IgM Nonreactive (Nonreactive); ~Hepatitis B Surface Antibody NONREACTIVE (Nonreactive); ~Hepatitis C Antibody Nonreactive (Nonreactive)
[2023-06-07 00:49] LABS: HLA B27 Negative (Negative)
[2023-06-10 08:19] LABS: Anti Nuclear Antibody Screen NEGATIVE (NEGATIVE)
== END 2023-06-04 09:46 | disposition home or self-care (01) ==
LOC: HO.HHCL 09:45
PROVIDERS: Visit Provider Internal Medicine
DX: E11.65 Type 2 diabetes mellitus with hyperglycemia (principal); M47.9 Spondylosis, unspecified; M16.12 Unilateral primary osteoarthritis, left hip
CPT/HCPCS: 36415; 80048; 80061; 82043; 82306; 82570; 85025; 86038; 86140; 86431; 86704; 86706; 86709; 86803; 86812; 87340

== ENCOUNTER 2023-06-27 12:43 | Outpatient (REF) | payer MEDICAID, SELFPAY ==
[2023-06-27 14:01] LABS: Appearance Urine Cloudy; Color Urine Yellow; Glucose Urine UA >=1000 mg/dL (Negative); Leukocyte Esterase Urine Moderate (2+) (Negative); Nitrite Urine Positive (Negative); Specific Gravity - Urine >= 1.030 (1.005-1.025); UMIC TRIGGER UACC YES; Urine Blood Large (3+) (Negative); Urine Ketones Trace mg/dL (Negative); Urine Protein Trace mg/dL (Neg-Trace)
[2023-06-27 14:08] LABS: Bacteria Urine 4+ (None Seen); Hyaline Casts Urine 0-2 /LPF (0-2); RBC Urine >20 /HPF (0-2); Squamous Epithelial Cell Urine 0-2 /HPF (0-2); UACC Culture Trigger YES; WBC Urine >50 /HPF (0-5)
== END 2023-06-27 12:44 | disposition home or self-care (01) ==
LOC: HO.HHCL 12:43
PROVIDERS: Visit Provider Internal Medicine
DX: R31.0 Gross hematuria (principal)
CPT/HCPCS: 81001; 87086; 87088; 87186

== ENCOUNTER 2023-07-14 10:32 | Outpatient (AMB) | payer MEDICAID, SELFPAY ==
--- NOTE | 2023-07-14 10:34 | A.OFFVIS_ITS ---
Vital Signs 07/14/23 10:40 Height 5 ft 1 in Weight 232 lb BMI 43.8 BP 141/73 H Blood Pressure Location Rt brachial Position Sitting Pulse 104 H Pulse Source Pulse Oximeter Pulse Oximetry (%) 97 Oxygen Delivery Method Room Air Intake Visit Reasons: Lumbar Radiculopathy Intake Note: Pain today 11/24 Payroll Accounting Manager Required: Yes Payroll Accounting Manager Language: Computer Technologist Name: Fabiola #[id number] Accompanied by: Self / Same As Patient Allergies No Known Allergies [No Known Allergies*] Allergy (Verified 11/11/22 13:16) HPI HPI Lumbar Radiculopathy: Details: Patient is a 63 years old Azerbaijani speaking female with prior history of chronic low back pain, kidney stones, diabetes, anxiety, depression, ЕЛЕНА presents today for initial evaluation of acute on chronic low back pain with right sided radiculopathy and progressive right leg weakness. Denies any recent trauma, injury or falls. However, she reports increased symptoms of back pain with right leg symptoms after recent Chiropractor adjustment. Back pain is axial and also radiates into her right anterior and lateral thigh, rowland and ankle and top of her foot with associated numbness and tingling. She reports good but temporary relief with oral steroid trial, NSAID, and tramaol. Reports her DM is well controlled with most recent A1C at 7.0. Pain affects her daily activities and functioning, mobility, sleep, mood and social interactions. Denies any fever, foot drop, bladder or bowel dysfunction or saddle anesthesia. Patient recently completed lumbar spine MRI at [facility] and has pending Neurosurgery evaluation with Dr. Basurto this Friday. She is interested to undergo epidural steroid injection to alleviate her pain. Oswestry Low Back Disability=33 (severe disability) Location: Lower back pain radiates down right leg Duration: Chronic pain, progressively worsening since 01/2023 Characteristics of symptom or complaint: Shock-like, aching, numbness, radiating, tingling, spasming Aggravating or associated factors: Movements, standing or walking >5 min, bending, lifting, pulling Relieving factors: Decadron, heat, hot showers, tramadol, naproxen Treatment: Chiropractor therapy, increase pain after most recent adjustment PFSH Medical History Anxiety Asthma Depression Diabetes GERD (gastroesophageal reflux disease) H. pylori infection Hypercholesteremia Hypertension ЕЛЕНА (obstructive sleep apnea) Surgical History H/O lithotripsy History of carpal tunnel release History of hysterectomy History of appendectomy History of cholecystectomy Hx of colonoscopy Social History Alcohol intake: never Patient Tobacco Use Status: Never used Tobacco Review of Systems Const All systems reviewed & are unremarkable except as noted in HPI and below Physical Exam Vital Signs: Last Vital Signs Pulse 104 H 07/14/23 10:40 BP 141/73 H 07/14/23 10:40 Pulse Ox 97 07/14/23 10:40 Oxygen Delivery Method Room Air 07/14/23 10:40 BMI result Body Mass Index 43.8 General: Appears afebrile. Mild distress due to pain. Morbidly obese. Alert and oriented. Mood and affect appropriate. Follows and participates in conversation appropriately. Respiratory effort is unlabored. No cough. Able to transition from sit to stand unassisted. Uses cane with ambulation. Ambulates with normal heel strike and toe off on the left, reports imbalance and weakness on the right. Back/Spine/Pelvis Other: Limited lumbar spine ROM due to pain. Antalgic gait. No limping. Can flex forward to 65-75 degrees and extend to 5-10 degrees before experiencing lumbar pain. Demonstrates 5/5 left and 4/5 right strength of quadriceps bilaterally as well as flexion/dorsiflexion of bilateral feet against resistance. 2+ pedal pulses bilaterally. Seated straight leg rise with dorsiflexion positive bilaterally, right worse than left. +1 patellar and achilles reflexes bilaterally. Facet loading test positive bilaterally. Juliocesar?s, Pelvic compression and Stinchfield tests are positive bilaterally. No groin pain with I/E hip rotations. Valsalva maneuver negative. Cervical Spine: cervical muscular tenderness and No Cervical spine tenderness Thoracic/Lumbar Spine: thoracic and lumbar spine normal to inspection, No Thoracic/lumbar spine scar(s), Lasegue's sign positive (right>left) bilateral and localized, pain with thoraco-lumbar ROM, paraspinal muscle tenderness on the right greater than left, thoraco-lumbar ROM limited, No thoracic spinal tenderness and lumbar spinal tenderness (L3-S1) Pelvis: buttock tenderness on the right and sciatic notch tenderness on the right Sacroiliac joints: bilaterally tender to palpation Results Reviewed Results Reviewed: MR SPINE LUMBAR without CONTRAST 06/11/[address] [facility] INDICATION: Low back pain, leg weakness for 1.5 months. TECHNIQUE: Unenhanced multiplanar, multisequence MR imaging of the lumbar spine. FINDINGS: For the purposes of the report, the last well-formed inferior disc space will be labeled as L5-S1. There is mild grade 1 anterolisthesis of L4 on L5.. Vertebral heights are well maintained. Small hemangiomas likely involve the L2 and L3 vertebral bodies. Bone marrow signal is within normal limits, and no suspicious osseous lesion is identified. Conus medullaris is unremarkable and terminates at L1. Paraspinal soft tissues and visualized portions of the abdomen and pelvis are unremarkable. At T12-L1, there is a mild disc bulge. No spinal canal or neural foraminal narrowing. At L1-2 there is no significant disc herniation or protrusion. No central canal or neural foraminal stenosis is demonstrated. At L2-3, there is a disc bulge. Mild bilateral facet the heart particularly ligamentum flavum thickening. No significant spinal canal or neural foraminal narrowing. At L3-4, there is a disc bulge. Mild bilateral facet joint hypertrophy and ligamentum flavum thickening. No significant spinal canal or neural foraminal narrowing. At L4-5, there is a broad-based disc bulge and small central protrusion associated with bilateral facet joint hypertrophy and ligamentum flavum thickening. There are small bilateral facet joint effusions. These findings result in moderate to severe spinal canal narrowing, with likely contact of the bilateral traversing and left exiting nerve roots. There is severe left neural foraminal narrowing and mild to moderate right neural foraminal narrowing. At L5-S1: Mild disc bulge. No central canal or neural foraminal stenosis is demonstrated. There is a small T2 hyperintense and T1 hypointense focus involving the posterior aspect of right kidney measuring 1.4 cm which is suggestive for a cyst. Additional smaller cysts are also noted within the left kidney. IMPRESSION: 1. Moderate spondylitic changes of the lumbar spine associated with a broad-base d disc bulge and probable small central protrusion involving the L4-L5 disc, resulting in moderate to severe spinal canal narrowing and severe left neural foraminal narrowing. Likely contact of the bilateral traversing and left exiting nerve roots at this level. Small bilateral facet joint effusions at this level. 2. Milder disc bulges at L2-L3 and L3-L4 without significant spinal canal or neural foraminal narrowing. 3. Small bilateral renal cysts. Assessment & Plan Assessment & Plan (1) Lumbar back pain with radiculopathy affecting lower extremity: Code(s): M54.16 - Radiculopathy, lumbar region Category: Medical (2) Back muscle spasm: Code(s): M62.830 - Muscle spasm of back Category: Medical (3) Lumbar spondylosis: Code(s): M47.816 - Spondylosis without myelopathy or radiculopathy, lumbar region Category: Medical (4) Lumbar back pain with radiculopathy affecting lower extremity: Code(s): M54.16 - Radiculopathy, lumbar region Category: Medical (5) Back muscle spasm: Code(s): M62.830 - Muscle spasm of back Category: Medical (6) Lumbar spinal stenosis: Code(s): M48.061 - Spinal stenosis, lumbar region without neurogenic claudication Category: Medical (7) Lumbar degenerative disc disease: Code(s): M51.36 - Other intervertebral disc degeneration, lumbar region Category: Medical Plan Lumbar spine MRI results were reviewed with patient today, report is noted above. Pending Neurosurgery referral with Dr. Bas[place]16[place] [facility] [place]. Schedule Bilateral L4-L5 TFESI injection with local and fluoroscopy for spinal- stenosis and radicular low back pain. Expectations, risks and benefits were reviewed. Patient is aware she will be contacted to schedule this procedure. We also briefly discussed treatments for facetogenic, axial low back pain. Informational pamphlets provided to patient. For moderate-severe low back pain, short script of tramadol sent today. Narcan sent. Also providing patient with lidocaine patches and methocarbamol scripts. Side effects and precautions were discussed with patient for each medication. All questions and concerns have been answered and patient agreed with the plan. Follow up after injections and sooner as needed. Medications: New methocarbamol 750 mg PO BID 30 days 60 tabs 0RF muscle spasms M54.16 - Radiculopathy, lumbar region, M62.830 - Muscle spasm of back naloxone 4 mg/actuation (Narcan) spray 1 dose into ONE nostril; alternate nostrils w each dose until help arrives 4 mg intranasal Q2M PRN 2 ea 0RF opioid overdose lidocaine 5% 1 patch topical DAILY 30 days 30 ea 1RF pain M47.816 - Spondylosis without myelopathy or radiculopathy, lumbar region, M62.830 - Muscle spasm of back tramadol 50 mg PO Q8H 7 days PRN 20 tabs 0RF pain M47.816 - Spondylosis without myelopathy or radiculopathy, lumbar region, M54.16 - Radiculopathy, lumbar region, M62.830 - Muscle spasm of back Coding Level of Care Code New Pt Level 4 (63216) Diagnoses Lumbar back pain with radiculopathy affecting lower extremity M54.16 Back muscle spasm M62.830 Lumbar spondylosis M47.816 Lumbar spinal stenosis M48.061 Lumbar degenerative disc disease M51.36
[2023-07-14 10:40] VITALS: BP 141/73; PULSE 104; O2SAT 97; BMI 43.8
== END 2023-07-14 11:20 | disposition home or self-care (01) ==
PROVIDERS: PCP Internal Medicine; Referring Provider Internal Medicine; Visit Provider Nurse Practitioner Family
DX: M54.16 Radiculopathy, lumbar region (principal); M62.830 Muscle spasm of back; M47.816 Spondylosis without myelopathy or radiculopathy, lumbar region; M48.061 Spinal stenosis, lumbar region without neurogenic claudication; M51.36 Other intervertebral disc degeneration, lumbar region
CPT/HCPCS: 99204

== ENCOUNTER → 2023-07-14 10:32 | Outpatient (BNVA) | payer MEDICAID, SELFPAY | PROVIDERS: PCP Internal Medicine; Referring Provider Internal Medicine; Visit Provider Nurse Practitioner Family | DX: M47.26 Other spondylosis with radiculopathy, lumbar region (principal); M62.830 Muscle spasm of back; M48.061 Spinal stenosis, lumbar region without neurogenic claudication; M51.36 Other intervertebral disc degeneration, lumbar region; G89.29 Other chronic pain | CPT/HCPCS: 99212 ==

== ENCOUNTER 2023-08-19 06:51 | Outpatient (REF) | payer MEDICAID, SELFPAY | END 2023-08-19 06:52 | disposition home or self-care (01) | LOC: CF 06:51 | PROVIDERS: Visit Provider Anesthesiology | DX: Z13.89 Encounter for screening for other disorder (principal) ==

== ENCOUNTER 2023-12-02 09:35 | Outpatient (REF) | payer MEDICAID, SELFPAY ==
--- NOTE | ~2023-12-02 | MM_ITS ---
EXAMINATION: MM SCREENING DIGITAL BREAST TOMOSYNTHESIS, BILATERAL CLINICAL INFORMATION: Screening. Asymptomatic. COMPARISON: Mammography: Comparison is made with available priors TECHNIQUE: Digital breast mammography with tomosynthesis is performed in both the craniocaudal and mediolateral oblique views along with computer-aided detection (CAD). FINDINGS: There are scattered areas of fibroglandular density (ACR BI-RADS breast composition Category b). There are no significant masses, abnormal calcifications, or other abnormalities. MM/MM tomosynthesis screening BI IMPRESSION: No mammographic evidence of malignancy. ASSESSMENT: BI-RADS BI-RADS 1 - Negative RECOMMENDATION: Routine annual mammography screening. 1 year F/U This examination should not preclude the clinical evaluation of a suspicious palpable abnormality. This patient's information was entered into a reminder system with a target due date for their next mammogram. Electronically signed by: Shazia Jones DO 12/15/2023 04:09 PM EDT
== END 2023-12-02 09:36 | disposition home or self-care (01) ==
LOC: HO.MAMMO 09:35
PROVIDERS: PCP Internal Medicine; Visit Provider Internal Medicine
DX: Z12.31 Encounter for screening mammogram for malignant neoplasm of breast (principal)
CPT/HCPCS: 77063; 77067

== ENCOUNTER → 2023-12-02 09:45 | Outpatient (BNV) | payer MEDICAID, SELFPAY | PROVIDERS: PCP Internal Medicine; Visit Provider Internal Medicine | DX: Z12.31 Encounter for screening mammogram for malignant neoplasm of breast (principal) | CPT/HCPCS: 77063; 77067 ==

== ENCOUNTER 2023-12-30 06:13 | Outpatient (REF) | payer MEDICAID, SELFPAY | END 2023-12-30 06:14 | disposition home or self-care (01) | LOC: CF 06:13 | PROVIDERS: Visit Provider Anesthesiology | DX: M48.061 Spinal stenosis, lumbar region without neurogenic claudication (principal); M62.830 Muscle spasm of back; M51.369 Other intervertebral disc degeneration, lumbar region without mention of lumbar back pain or lower extremity pain; M47.26 Other spondylosis with radiculopathy, lumbar region | CPT/HCPCS: 64483; J2003; J3301; Q9967 ==

== ENCOUNTER 2023-12-30 07:30 | Outpatient (AMB) | payer MEDICAID, SELFPAY ==
[2023-12-30 07:37] VITALS: BP 133/74; PULSE 89; RESP 19; O2SAT 94
--- NOTE | 2023-12-30 07:37 | A.OFFVIS_ITS ---
Vital Signs 12/30/23 07:37 12/30/23 08:26 BP 133/74 133/74 Blood Pressure Location Rt brachial Rt brachial Position Sitting Sitting Respiration 19 19 Pulse 89 88 Pulse Source Pulse Oximeter Pulse Oximeter Pulse Oximetry (%) 94 96 Oxygen Delivery Method Room Air Room Air Comment Pre-op Post-op Intake Visit Reasons: BILATERAL L4, L5 TFESI/ATIVAN REQ Allergies No Known Allergies [No Known Allergies*] Allergy (Verified 11/11/22 13:16) PFSH Medical History Anxiety Asthma Depression Diabetes GERD (gastroesophageal reflux disease) H. pylori infection Hypercholesteremia Hypertension ЕЛЕНА (obstructive sleep apnea) Surgical History H/O lithotripsy History of carpal tunnel release History of hysterectomy History of appendectomy History of cholecystectomy Hx of colonoscopy Social History Alcohol intake: never Patient Tobacco Use Status: Never used Tobacco Physical Exam Vital Signs: Last Vital Signs Pulse 88 12/30/23 08:26 Resp 19 12/30/23 08:26 BP 133/74 12/30/23 08:26 Pulse Ox 96 12/30/23 08:26 Oxygen Delivery Method Room Air 12/30/23 08:26 Assessment & Plan Assessment & Plan (1) Lumbar back pain with radiculopathy affecting lower extremity: Code(s): M54.16 - Radiculopathy, lumbar region Category: Medical (2) Back muscle spasm: Code(s): M62.830 - Muscle spasm of back Category: Medical (3) Lumbar spondylosis: Code(s): M47.816 - Spondylosis without myelopathy or radiculopathy, lumbar region Category: Medical (4) Lumbar back pain with radiculopathy affecting lower extremity: Code(s): M54.16 - Radiculopathy, lumbar region Category: Medical Plan: Transforaminal bilateral L4-5 epidural steroid injection Informed consent was thoroughly explained to the patient before the procedure.? The patient came to the operating room.? He was positioned prone on operating table with a pillow under his abdomen.? Time-out was performed delineating correct site and side of the procedure, nature of the injection, name and date of of the patient. The lower back of the patient was prepped with ChloraPrep and draped with sterile utility towels.? C-arm was brought over the operating field and sq picture of L4 vertebra was demonstrated on the screen.? The right side was chosen as the side of the injection.? Tilting machine ipsilateral to the right at the level of L4 the most prominent picture of the left pedicle was obtained on the screen.? 3 mm below the level of the lowest point of the pedicle projection to the skin small amount of lidocaine 1% 3-4 cc was injected to anesthetize the skin.? After that 5 in 22 gauge Quincke point needle was inserted through the skin wheal and was advanced to were the L4-5 foramina on anterior posterior , lateral and oblique views intermittently.? When needle entered foramina injection of the contrast performed demonstrating epidural and perineural spread of the contrast. No intrathecal and no intravascular spread of the contrast was noted on the screen. No intravascular nor intrathecal spread of the contrast was noted. After that preservative-free lidocaine 1% 3 mL mixed with Kenalog 20 mg was injected into the needle. Upon completion of the injection needle was withdrawn and the procedure was repeated on the left L4-5 epidural foramina in mirroring fashion. Upon completion of the procedure new were withdrawn sterile Band-Aids were applied Patient tolerated procedure well she was taken outside of the operating room where he recovered uneventfully.? She went home without immediate complications. (5) Back muscle spasm: Code(s): M62.830 - Muscle spasm of back Category: Medical (6) Lumbar spinal stenosis: Code(s): M48.061 - Spinal stenosis, lumbar region without neurogenic claudication Category: Medical (7) Lumbar degenerative disc disease: Code(s): M51.36 - Other intervertebral disc degeneration, lumbar region Category: Medical Plan Lumbar spine MRI results were reviewed with patient today, report is noted above. Pending Neurosurgery referral with Dr. Basurto on 07/16/23 at [facility] for surgical evaluation. Schedule Bilateral L4-L5 TFESI injection with local and fluoroscopy for spinal- stenosis and radicular low back pain. Expectations, risks and benefits were reviewed. Patient is aware she will be contacted to schedule this procedure. We also briefly discussed treatments for facetogenic, axial low back pain. Informational pamphlets provided to patient. For moderate-severe low back pain, short script of tramadol sent today. Narcan sent. Also providing patient with lidocaine patches and methocarbamol scripts. Side effects and precautions were discussed with patient for each medication. All questions and concerns have been answered and patient agreed with the plan. Follow up after injections and sooner as needed. Orders: Orders FL guidance in treatment room Today M48.061 - Spinal stenosis, lumbar region without neurogenic claudication Medications: New lorazepam (Ativan) Take 30 minutes prior to arrival to procedure 1 mg PO ONCE 1 tab 0RF anxiety Coding Level of Care Code Procedure Only Diagnoses Lumbar back pain with radiculopathy affecting lower extremity M54.16 Back muscle spasm M62.830 Lumbar spondylosis M47.816 Lumbar spinal stenosis M48.061 Lumbar degenerative disc disease M51.36
[2023-12-30 08:26] VITALS: BP 133/74; PULSE 88; RESP 19; O2SAT 96
== END 2023-12-30 08:38 | disposition home or self-care (01) ==
LOC: HO.PMCPRC 07:30
PROVIDERS: PCP Internal Medicine; Visit Provider Anesthesiology
DX: M54.16 Radiculopathy, lumbar region (principal); M62.830 Muscle spasm of back; M47.816 Spondylosis without myelopathy or radiculopathy, lumbar region; M48.061 Spinal stenosis, lumbar region without neurogenic claudication; M51.36 Other intervertebral disc degeneration, lumbar region
CPT/HCPCS: 64483

== ENCOUNTER 2024-01-27 10:20 | Outpatient (AMB) | payer MEDICAID, SELFPAY ==
--- NOTE | 2024-01-27 10:21 | A.OFFVIS_ITS ---
Vital Signs 01/27/24 10:25 Height 5 ft 1 in Weight 228 lb 2 oz BMI 43.1 BP 140/71 H Blood Pressure Location Rt brachial Position Sitting Pulse 92 Pulse Source Pulse Oximeter Pulse Oximetry (%) 98 Oxygen Delivery Method Room Air Intake Visit Reasons: BILATEAL L4, L5 TFESI Intake Note: Pain today 09/23 Liability Claims Examiner Required: Yes Liability Claims Examiner Language: Boil Off Machine Operator Cloth Name: Tammy #[id number] Accompanied by: Self / Same As Patient Allergies No Known Allergies [No Known Allergies*] Allergy (Verified 01/27/24 10:26) HPI Comments Details: Patient presents today to assess response to Bilateral L4-L5 TFESI on 12/30/[address] Olmedo. lands resource manager was utilized during today's visit. Patient reports 45% ongoing pain relief since procedure with minimal improvement in her daily activities and functioning, mobility and sleep. Patient reports she was seen by [place]. Basurto [place] [facility] [place] and was deemed surgical but has to lose weight prior to back surgery. She has been managing her symptoms with naproxen and lidocaine patch with minimal benefit. Patient continues to endorse bilateral radiculopathy, worse on the right side. She denies any fever or chills, abdominal or groin pain, bladder or bowel dysfunction or saddle anesthesia. Reports right lower extremity weakness due to pain. Ambulates with the use of the cane. Past Procedures: 12/30/23: Bilateral L4-L5 TFESI-45% ongoing pain relief PRIOR: Patient is a 63 years old Sudanese speaking female with prior history of chronic low back pain, kidney stones, diabetes, anxiety, depression, ЕЛЕНА presents today for initial evaluation of acute on chronic low back pain with right sided radiculopathy and progressive right leg weakness. Denies any recent trauma, injury or falls. However, she reports increased symptoms of back pain with right leg symptoms after recent Chiropractor adjustment. Back pain is axial and also radiates into her right anterior and lateral thigh, rowland and ankle and top of her foot with associated numbness and tingling. She reports good but temporary relief with oral steroid trial, NSAID, and tramaol. Reports her DM is well controlled with most recent A1C at 7.0. Pain affects her daily activities and functioning, mobility, sleep, mood and social interactions. Denies any fever, foot drop, bladder or bowel dysfunction or saddle anesthesia. Patient recently completed lumbar spine MRI at [facility] and has pending Neurosurgery evaluation with Dr. Basurto this Friday. She is interested to undergo epidural steroid injection to alleviate her pain. Oswestry Low Back Disability=33 (severe disability) Location: Lower back pain radiates down right leg Duration: Chronic pain, progressively worsening since 01/2023 Characteristics of symptom or complaint: Shock-like, aching, numbness, radiating, tingling, spasming Aggravating or associated factors: Movements, standing or walking >5 min, bending, lifting, pulling Relieving factors: Decadron, heat, hot showers, tramadol, naproxen Treatment: Chiropractor therapy, increase pain after most recent adjustment [facility] Medical History Diabetes H. pylori infection ЕЛЕНА (obstructive sleep apnea) Depression Anxiety GERD (gastroesophageal reflux disease) Asthma Hypertension Hypercholesteremia Surgical History H/O lithotripsy History of carpal tunnel release History of hysterectomy History of appendectomy History of cholecystectomy Hx of colonoscopy Social History Alcohol intake: never Patient Tobacco Use Status: Never used Tobacco Review of Systems Const All systems reviewed & are unremarkable except as noted in HPI and below Physical Exam Vital Signs: Last Vital Signs Pulse 92 01/27/24 10:25 BP 140/71 H 01/27/24 10:25 Pulse Ox 98 01/27/24 10:25 Oxygen Delivery Method Room Air 01/27/24 10:25 BMI result Body Mass Index 43.1 General: Appears afebrile. Mild distress due to pain. Morbidly obese. Alert and oriented. Mood and affect appropriate. Follows and participates in conversation appropriately. Respiratory effort is unlabored. No cough. Able to transition from sit to stand unassisted. Uses cane with ambulation. Ambulates with normal heel strike and toe off on the left, reports imbalance and weakness on the right. Back/Spine/Pelvis Other: Limited lumbar spine ROM due to pain. Antalgic gait. No limping. Can flex forward to 65-75 degrees and extend to 5-10 degrees before experiencing lumbar pain. Demonstrates 5/5 left and 4/5 right strength of quadriceps bilaterally as well as flexion/dorsiflexion of bilateral feet against resistance. 2+ pedal pulses bilaterally. Seated straight leg rise with dorsiflexion positive bilaterally, right worse than left. +1 patellar and achilles reflexes bilaterally. Facet loading test positive bilaterally. Juliocesar?s, Pelvic compression and Stinchfield tests are positive bilaterally. No groin pain with I/E hip rotations. Valsalva maneuver negative. Cervical Spine: cervical muscular tenderness and No Cervical spine tenderness Thoracic/Lumbar Spine: thoracic and lumbar spine normal to inspection, No Thoracic/lumbar spine scar(s), Lasegue's sign positive (right>left) bilateral and localized, pain with thoraco-lumbar ROM, paraspinal muscle tenderness on the right greater than left, thoraco-lumbar ROM limited, No thoracic spinal tenderness and lumbar spinal tenderness (L3-S1) Pelvis: buttock tenderness on the right and sciatic notch tenderness on the right Sacroiliac joints: bilaterally tender to palpation Results Reviewed Results Reviewed: MR SPINE LUMBAR without CONTRAST 06/11/23 at [facility] INDICATION: Low back pain, leg weakness for 1.5 months. TECHNIQUE: Unenhanced multiplanar, multisequence MR imaging of the lumbar spine. FINDINGS: For the purposes of the report, the last well-formed inferior disc space will be labeled as L5-S1. There is mild grade 1 anterolisthesis of L4 on L5.. Vertebral heights are well maintained. Small hemangiomas likely involve the L2 and L3 vertebral bodies. Bone marrow signal is within normal limits, and no suspicious osseous lesion is identified. Conus medullaris is unremarkable and terminates at L1. Paraspinal soft tissues and visualized portions of the abdomen and pelvis are unremarkable. At T12-L1, there is a mild disc bulge. No spinal canal or neural foraminal narrowing. At L1-2 there is no significant disc herniation or protrusion. No central canal or neural foraminal stenosis is demonstrated. At L2-3, there is a disc bulge. Mild bilateral facet the heart particularly ligamentum flavum thickening. No significant spinal canal or neural foraminal narrowing. At L3-4, there is a disc bulge. Mild bilateral facet joint hypertrophy and ligamentum flavum thickening. No significant spinal canal or neural foraminal narrowing. At L4-5, there is a broad-based disc bulge and small central protrusion associated with bilateral facet joint hypertrophy and ligamentum flavum thickening. There are small bilateral facet joint effusions. These findings result in moderate to severe spinal canal narrowing, with likely contact of the bilateral traversing and left exiting nerve roots. There is severe left neural foraminal narrowing and mild to moderate right neural foraminal narrowing. At L5-S1: Mild disc bulge. No central canal or neural foraminal stenosis is demonstrated. There is a small T2 hyperintense and T1 hypointense focus involving the posterior aspect of right kidney measuring 1.4 cm which is suggestive for a cyst. Additional smaller cysts are also noted within the left kidney. IMPRESSION: 1. Moderate spondylitic changes of the lumbar spine associated with a broad- based disc bulge and probable small central protrusion involving the L4-L5 disc, resulting in moderate to severe spinal canal narrowing and severe left neural foraminal narrowing. Likely contact of the bilateral traversing and left exiting nerve roots at this level. Small bilateral facet joint effusions at this level. 2. Milder disc bulges at L2-L3 and L3-L4 without significant spinal canal or neural foraminal narrowing. 3. Small bilateral renal cysts. XR HIP, LEFT 12/06/22 CLINICAL INFORMATION: Left hip pain. FINDINGS: No fracture or malalignment. No significant degenerative findings of the left hip. There is mild right hip osteoarthritis. No suspicious bone lesion or soft tissue calcification. IMPRESSION: Mild right hip osteoarthritis. No significant degenerative findings of the left hip. Assessment & Plan Assessment & Plan (1) Lumbar back pain with radiculopathy affecting lower extremity: Code(s): M54.16 - Radiculopathy, lumbar region Category: Medical (2) Lumbar spondylosis: Code(s): M47.816 - Spondylosis without myelopathy or radiculopathy, lumbar region Category: Medical (3) Lumbar spinal stenosis: Code(s): M48.061 - Spinal stenosis, lumbar region without neurogenic claudication Category: Medical (4) Lumbar degenerative disc disease: Code(s): M51.36 - Other intervertebral disc degeneration, lumbar region Category: Medical (5) Morbid obesity with BMI of 40.0-44.9, adult: Code(s): E66.01 - Morbid (severe) obesity due to excess calories; Z68.41 - Body mass index [BMI] 40.0-44.9, adult Category: Medical Plan Patient is status post bilateral L4-L5 TFESI with 45% pain relief and minimal improvement in her daily activities and functioning, mobility and sleep. She underwent neurosurgical evaluation in July with [place] [facility] and was deemed surgical but needed to loose weight. We will proceed with Medical Weight Management referral to assist patient with weight loss. Scripts provided for gabapentin and refills for lidocaine patch and methocarbamol. Side effects and precautions were discussed with patient. Patient is aware to call if pain worsens or if she develops any red flag symptoms to seek emergency care. Patient denies any cauda equina syndrome symptoms at this time. All questions and concerns have been answered and patient agreed with the plan. Follow up as needed. Orders: Referrals Medical Weight Management Referral E66.01 - Morbid (severe) obesity due to excess calories, M48.061 - Spinal stenosis, lumbar region without neurogenic claudication, M54.16 - Radiculopathy, lumbar region, Z68.41 - Body mass index [BMI] 40.0-44.9, adult Medications: New gabapentin 300 mg PO TID 30 days 90 caps 0RF pain M47.816 - Spondylosis without myelopathy or radiculopathy, lumbar region, M48.061 - Spinal stenosis, lumbar region without neurogenic claudication, M51.36 - Other intervertebral disc degeneration, lumbar region, M54.16 - Radiculopathy, lumbar region Refilled lidocaine 5% 1 patch topical DAILY 30 days 30 patches 3RF M47.816 - Spondylosis without myelopathy or radiculopathy, lumbar region, M62.830 - Muscle spasm of back methocarbamol 750 mg PO BID 30 days 60 tabs 0RF muscle spasms M54.16 - Radiculopathy, lumbar region, M62.830 - Muscle spasm of back Discontinued tramadol Discontinued Reason: Patient Completed Course 50 mg PO Q8H 7 days PRN 20 tabs 0RF pain M47.816 - Spondylosis without myelopathy or radiculopathy, lumbar region, M54.16 - Radiculopathy, lumbar region, M62.830 - Muscle spasm of back Coding Level of Care Code Est Pt Level 4 (74491) Complex EM visit Add On G2211 Diagnoses Lumbar back pain with radiculopathy affecting lower extremity M54.16 Lumbar spondylosis M47.816 Lumbar spinal stenosis M48.061 Lumbar degenerative disc disease M51.36 Morbid obesity with BMI of 40.0-44.9, adult E66.01; Z68.41
[2024-01-27 10:25] VITALS: BP 140/71; PULSE 92; O2SAT 98; BMI 43.1
== END 2024-01-27 10:39 | disposition home or self-care (01) ==
PROVIDERS: PCP Internal Medicine; Visit Provider Nurse Practitioner Family
DX: M54.16 Radiculopathy, lumbar region (principal); M47.816 Spondylosis without myelopathy or radiculopathy, lumbar region; M48.061 Spinal stenosis, lumbar region without neurogenic claudication; M51.369 Other intervertebral disc degeneration, lumbar region without mention of lumbar back pain or lower extremity pain; E66.01 Morbid (severe) obesity due to excess calories; Z68.41 Body mass index [BMI] 40.0-44.9, adult
CPT/HCPCS: 99214

== ENCOUNTER → 2024-01-27 10:20 | Outpatient (BNVA) | payer MEDICAID, SELFPAY | PROVIDERS: PCP Internal Medicine; Visit Provider Nurse Practitioner Family | DX: M54.16 Radiculopathy, lumbar region (principal); M47.816 Spondylosis without myelopathy or radiculopathy, lumbar region; M48.061 Spinal stenosis, lumbar region without neurogenic claudication; M51.360 Other intervertebral disc degeneration, lumbar region with discogenic back pain only; E66.01 Morbid (severe) obesity due to excess calories; Z68.41 Body mass index [BMI] 40.0-44.9, adult | CPT/HCPCS: 99212 ==

== ENCOUNTER 2024-02-24 09:01 | Outpatient (REF) | payer MEDICAID, SELFPAY ==
[2024-02-24 12:30] LABS: Alanine Aminotransferase 18 U/L (0-31); Albumin Level 4.1 g/dL (3.5-5.0); Alkaline Phosphatase 71 U/L (39-117); Anion Gap 14 (12-20); Aspartate Amino Transferase 20 U/L (5-31); Bilirubin Total 0.5 mg/dL (0.0-1.0); Blood Urea Nitrogen 10 mg/dL (9-16); Calcium 9.5 mg/dL (8.4-10.2); Carbon Dioxide 29 mmol/L (22-29); Chloride 106 mmol/L (96-108); Cholesterol 159 mg/dL (<200); Estimated Glomerular Filt Rate > 60; Glucose Random 102 mg/dL (60-115); HDL Cholesterol 43 mg/dL (>40); LDL Cholesterol Calculated 76 mg/dL (<100); Potassium 3.8 mmol/L (3.3-5.1); Sodium 145 mmol/L (135-145); Total Protein 7.2 g/dL (6.5-8.0); Triglycerides 203 mg/dL (<150)
[2024-02-24 12:31] LABS: Erythrocyte Sedimentation Rate 23 MM/HR (0-20)
[2024-02-24 12:47] LABS: Vitamin D 25-OH Total 42.8 ng/mL (>30)
[2024-02-24 13:44] LABS: Reflex LDLD? No
== END 2024-02-24 09:02 | disposition home or self-care (01) ==
LOC: HO.HHCL 09:01
PROVIDERS: Visit Provider Internal Medicine
DX: M47.9 Spondylosis, unspecified (principal); M16.12 Unilateral primary osteoarthritis, left hip; E11.65 Type 2 diabetes mellitus with hyperglycemia
CPT/HCPCS: 36415; 80053; 80061; 82306; 85652

== ENCOUNTER 2024-11-26 08:03 | Outpatient (REF) | payer MEDICAID, SELFPAY ==
--- OUTSIDE RECORDS SUMMARY | 2024-11-26 08:06 | XMS_ITS | Encounter Summary ---
Author Organization [employer] Address [address] [place] [address] Care Team Providers Care Accredited Pharmacy Technician Name Role Phone Beba Whitten MD Primary Care Provider + Reason for Visit * Reason Comments Med Refill Encounter Details Date Type Department Care Team ([facility] Contact Info) Description 11/20/2023 Refill [facility] MEDICINE [address] [place] [address] Beba Whitten MD [address] [place] [address] Mixed hyperlipidemia Social History Tobacco Use Types Packs/Day Years Used Date Smoking Tobacco: Never Smokeless Tobacco: Never Alcohol Use Standard Drinks/Week Comments Never 0 (1 standard drink = 0.6 oz pur e alcohol) Alcohol Answer Date Recorded Frequency of Alcohol Consumption Not on file 07/03/2023 Average Number of Drinks Not on file 024 Frequency of Binge Drinking Not on file 06/15 Score 0 07/03/2023 Depression Answer Date Recorded Patient Health Questionnaire-9 Score 18 04/03/2023 Patient Health Questionnaire-9 Score 18 04/03/2023 Last PHQ-9: Questionnaire Data Not on file 0 04/03/2023 Housing Stability Answer Date Recorded What is your housing situation today? I have edith car 06/24/[address] you li ve. Do you have problems with any of the following? None of the above 06/24/2023 Food Insecurity Answer Date Recorded Within the past 12 months, y ou worried that your food would run out before you got money to buy more: Never True 06/24/2023 Within the past 12 months,th e food you bought just didn't last and you didn't have enough money to get more: Never True 11/2023 Transportation Answer Date Recorded In the past 12 months, has l ack of transportation kept you from medical appts, meetings, work or from getting things needed for daily living? No 06/24/2023 Utilities Answer Date Recorded In the past 12 months, has t he electric, gas, oil or water company threatened to shut off services in your home? No 06/24/2023 Depression Answer Date Recorded Patient Health Questionnaire-2 Score 6 04/03/2023 Comments Unknown Sex and Gender Information Value Date Recorded Sex Assigned at Female 01/14/2022 10:16 AM EDT Legal Sex Female 10:16 AM EDT Gender Identity Female 01/14/2022 10:16 AM EDT Sexual Orientation Straight 01/14/2022 10 :16 AM EDT documented as of this encounter Plan of Treatment Upcoming Encounters Date Type Department Care Team (Late st Contact Info) Description 11/26/2024 10:15 AM EDT Office Visit [facility] MEDICINE [address] [place] [address] Nalini Bolanos ANP [address] [place] [address] 12/16/2024 10:30 AM EDT Office Visit [facility] MEDICINE [address] [place] [address] Beba Whitten MD [address] [place] [address] 12/16/2024 1:30 PM EDT Office Visit [facility] OPTOMETRY [address] [place] [address] Eliza Genao, OD [address] [place] [address] documented as of this encounter Visit Diagnoses Diagnosis Mixed hyperlipidemia documented in this encounter Additional Health Concerns Assessment Noted Time PHQ-9 Depression Total Score: 18 024 12:09 PM EST documented as of this encounter Care Teams Accredited Pharmacy Technician Relationship Specialty Start Date End Date Beba Whitten MD [address] [place] [id number] PCP - General Family Medicine 06/04/16 Franky Obregon Account Management AssistantNovelty Printing Machine Operator 12/31/23 documented as of this encounter
--- OUTSIDE RECORDS SUMMARY | 2024-11-26 08:06 | XMS_ITS | Encounter Summary ---
Author Organization [employer] Address [address] [place] [address] Care Team Providers Care Cane Cutter Name Role Phone Beba Whitten MD Primary Care Provider + Reason for Visit * Reason Onset Date Comments PT-1 12/26/2023 Encounter Details Date Type Department Care Team ([facility] Contact Info) Description 12/26/2023 Telephone [facility] MEDICINE [address] [place] [address] Beba Whitten MD [address] [place] [address] PT-1 Social History Tobacco Use Types Packs/Day Years [...] AM EDT documented as of this encounter Miscellaneous Notes * Telephone Encounter - Johnny Leal - 12/26/2023 9:43 AM EDT Patient calling requesting PT1 Home Address verified: Y/N: Yes Provider name or facility name: [facility] Facility Address: [address] [place] [address] Escort needed: Y/N: No Do you have a wheelchair: Y/N: No If yes- Manual or electric: (Uses Cane) Visits: Once a month documented in this encounter Plan of Treatment Upcoming Encounters Date Type Department Care Team ([facility] st Contact Info) Description 11/26/2024 10:15 AM EDT Office Visit [facility] MEDICINE [address] [place] [id number] Nalini Bolanos ANP [address] [place] [phone] 12/16/2024 10:30 AM EDT Office Visit [facility] MEDICINE [address] [place] [address] Beba Whitten MD [address] [place] [address] 12/16/2024 1:30 PM EDT Office Visit [facility] OPTOMETRY [address] [place], [place] [phone] Eliza Genao, MARGARETTE [address] [place] [address] documented as of this encounter Visit Diagnoses Not on filedocumented in this encounter Additional Health Concerns Assessment Noted Time PHQ-9 Depression Total Score: 18 024 12:09 PM EST documented as of this encounter Care Teams Cane Cutter Relationship Specialty Start Date End Date Beba Whitten MD [address] [place] [address] PCP - General Family Medicine 06/04/16 Franky Obregon Sales Development AssociateStamp Pad Maker 12/31/23 documented as of this encounter
--- OUTSIDE RECORDS SUMMARY | 2024-11-26 08:07 | XMS_ITS | Encounter Summary ---
Author Organization [employer] Address [address] 7t [place] [address] Care Team Providers Care Drafting Supervisor Name Role Phone Beba Whitten MD Primary Care Provider + Reason for Visit * Reason Onset Date Comments {PT1 06/26/2023 Encounter Details Date Type Department Care Team ([facility] Contact Info) Description 06/26/2023 Telephone [facility] [address] [place] [address] Beba Whitten MD 230 [place] [address] {PT1 Social History Tobacco Use Types Packs/Day Years Used Date Smoking Tobacco: Never Smokeless Tobacco: Never Alcohol Use Standard Drinks/Week Comments Never 0 (1 standard drink = 0.6 oz pur e alcohol) Depression Answer Date Recorded Patient Health Questionnaire-9 [...] encounter Miscellaneous Notes * Telephone Encounter - Trixie Jeffers - 07/03/2023 10:27 AM EDT Patient will recieve approval / denial letter via mail. PT-1 Request [id number] Authorized [facility] [address] [place] [address] Dr Pao BUCKLEY * Telephone Encounter - Breanna Hernadez - 06/26/2023 11:39 AM EDT Patient calling requesting PT1 Home Address verified: Y/N: Yes Provider name or facility name: [facility] Facility Address: [address] [place] [address] [place] [address] Escort needed: Y/N: No Do you have a wheelchair: Y/N: No but cane If yes- Manual or electric: n/a Visits: 12 a year documented in this encounter Plan of Treatment Upcoming Encounters Date Type Department Care Team (Late st Contact Info) Description 11/26/2024 10:15 AM EDT Office Visit [facility] [address] [place] [address] Nalini Bolanos ANP 230 [place] [address] 12/16/2024 10:30 AM EDT Office Visit [facility] [address] [place] [address] Beba Whitten MD 230 [place] [address] 12/16/2024 1:30 PM EDT Office Visit [facility] OPT[facility] [address] [place] [address] Chadwick, Eliza, OD 230 [place] [address] documented as of this encounter Visit Diagnoses Not on filedocumented in this encounter Additional Health Concerns Assessment Noted Time PHQ-9 Depression Total Score: 18 024 12:09 PM EST documented as of this encounter Care Teams Drafting Supervisor Relationship Specialty Start Date End Date Beba Whitten MD [address] [place], [place] [phone] PCP - General Family Medicine 06/04/16 Franky Obregon Production Control ClerkNut Tightener 12/31/23 documented as of this encounter
--- OUTSIDE RECORDS SUMMARY | 2024-11-26 08:07 | XMS_ITS | Encounter Summary ---
Author Organization [employer] Address [address] 7[address] [place] [address] Care Team Providers Care Blue Line Operator Name Role Phone Beba Whitten MD Primary Care Provider + Reason for Visit * Reason Onset Date Comments Nurse Triage 06/09/2023 Encounter Details Date Type Department Care Team ([facility] Contact Info) Description 06/09/2023 Telephone [facility] [address] [place], [place] [phone] Beba Whitten MD [address] [place] [address] Nurse Triage Social History Tobacco Use Types Packs/Day Years [...] housing situation today? I have edith car 01/02/[address] you li ve. Do you have problems with any of the following? None of the above 01/02/2023 Food Insecurity Answer Date Recorded Within the past 12 months, y ou worried that your food would run out before you got money to buy more: Never True 01/02/2023 Within the past 12 months,th e food you bought just didn't last and you didn't have enough money to get more: Never True Transportation Answer Date Recorded In the past 12 months, has l ack of transportation kept you from medical appts, meetings, work or from getting things needed for daily living? No 01/02/2023 Utilities Answer Date Recorded In the past 12 months, has t he electric, gas, oil or water company threatened to shut off services in your home? No 01/02/2023 Depression Answer Date Recorded Patient Health Questionnaire-2 Score 6 04/03/2023 Comments Unknown Sex and Gender Information Value Date Recorded Sex Assigned at Female 01/14/2022 10:16 AM EDT Legal Sex Female 10:16 AM EDT Gender Identity Female 01/14/2022 10:16 AM EDT Sexual Orientation Straight 01/14/2022 10 :16 AM EDT documented as of this encounter Miscellaneous Notes * Telephone Encounter - Swathi Bey RN - 06/09/2023 3:52 PM EDT Call to Marcia Meraz, reports BP of 166/90 today. Per pt had taken lisinopril this morning and amlodipine is at night. Mild ALMODOVAR. NO CP, SOB, palpitations or swelling of extremities. Pt reportstook a second dose of Lisinopril right after PT left. Pt educated on risks of taking double dose of medication without consulting with provider first. Can cause severe Hypotension or other SE. 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 Pt reports BP of 149/90 HR 100 on right arm. Pt staets is following low Sodium diet and drinking extra water. Pt advised of disposition, agrees to telehealth with PCP to discuss. Pt advised that if PCP prefers in office visit hao get call to noitfy of change. Reviewed home care advise, ER precautions and reasons to call back. Sent to PCP to review and advise team nurses if prefers in person versus telehealth. Pt does have BP kit at home. Protocol Used: Blood Pressure - High (Adult) Protocol-Based Disposition: See in Office or Video Visit within 3 Days Video visit offered and caller accepted Positive Triage Question: * Systolic BP >= 160 OR Diastolic >= 100 * All higher-acuity triage questions were negative Care Advice Discussed: * High Blood Pressure * High Blood Pressure - Lifestyle Modifications * How to Check Your Blood Pressure? * Reasons To Call Back - Headache, blurred vision, difficulty talking, or difficulty walking occurs - Chest pain or difficulty breathing occurs - You become worse * Telephone Encounter - Breanna Hernadez - 06/09/2023 3:32 PM EDT Symptoms: High Blood Pressure - Caller Reports, Back Pain - Not From Injury, Heartbeat Symptoms (Fast, Slow, or Irregular), Headache Outcome: Schedule a same-day appointment or talk to a nurse or provider today Reason: Caller denied all higher acuity questions The caller accepted this outcome documented in this encounter Plan of Treatment Upcoming Encounters Date Type Department Care Team (Late st Contact Info) Description 11/26/2024 10:15 AM EDT Office Visit [facility] [address] [place] [address] Nalini Bolanos ANP [address] [place] [address] 12/16/2024 10:30 AM EDT Office Visit [facility] [address] [place] [address] Beba Whitten MD [address] [place] [address] 12/16/2024 1:30 PM EDT Office Visit [facility] OPTOMETRY [address] [place] [address] Eliza Genao, OD 230 [place] [address] documented as of this encounter Visit Diagnoses Not on filedocumented in this encounter Additional Health Concerns Assessment Noted Time PHQ-9 Depression Total Score: 18 024 12:09 PM EST documented as of this encounter Care Teams Blue Line Operator Relationship Specialty Start Date End Date Beba Whitten MD [address] [place] [address] PCP - General Family Medicine 06/04/16 Franky Obregon Event Set Up SpecialistFoot Cutter 12/31/23 documented as of this encounter
--- OUTSIDE RECORDS SUMMARY | 2024-11-26 08:07 | XMS_ITS | Encounter Summary ---
Author Organization [employer] Address [address] [facility] 7t [place] [address] Care Team Providers Care Electronic System Engineer Name Role Phone Beba Whitten MD Primary Care Provider + Encounter Details Date Type Department Care Team ([facility] Contact Info) Description 06/24/2022 Orders Only [facility] & [facility]EDS [address] [place], [place] [phone] Malaika Gleason LPN Social History Tobacco Use Types Packs/Day Years Used Date Smoking Tobacco: Never Smokeless Tobacco: Never Alcohol Use Standard Drinks/Week Comments Never 0 (1 standard drink = 0.6 oz pur e alcohol) Depression Answer Date Recorded Patient Health Questionnaire-9 Score 7 05/15/2022 Depression Answer Date Recorded Patient Health Questionnaire-2 Score 4 05/15/2022 Comments Unknown Sex and Gender Information Value Date Recorded Sex Assigned at Female 01/14/2022 10:16 AM EDT Legal Sex Female 10:16 AM EDT Gender Identity Female 01/14/2022 10:16 AM EDT Sexual Orientation Straight 01/14/2022 10 :16 AM EDT documented as of this encounter Plan of Treatment Upcoming Encounters Date Type Department Care Team ([facility] Contact Info) Description 11/26/2024 10:15 AM EDT Office Visit [facility] [address] [place] [phone] Nalini Bolanos ANP [address] [place], [place] [phone] 12/16/2024 10:30 AM EDT Office Visit [facility] [address] [place] [address] [phone] Beba Whitten MD [address] [place] [address] 12/16/2024 1:30 PM EDT Office Visit [facility] OPTOMETRY [address] [place] [address] Chadwick, Eliza, OD 230 [place] [address] documented as of this encounter Visit Diagnoses Not on filedocumented in this encounter Additional Health Concerns Assessment Noted Time PHQ-9 Depression Total Score: 7 05/16/19 23 10:24 AM EST documented as of this encounter Care Teams Electronic System Engineer Relationship Specialty Start Date End Date Beba Whitten MD [address] [place], [place] [phone] PCP - General Family Medicine 06/04/16 Franky Obregon Mother SuperiorHome Economics Expert 12/31/23 documented as of this encounter
--- OUTSIDE RECORDS SUMMARY | 2024-11-26 08:07 | XMS_ITS | Encounter Summary ---
Author Organization [employer] Address [address] [place] [address] Care Team Providers Care Java Engineer Name Role Phone Beba Whitten MD Primary Care Provider + Reason for Visit * Reason Comments Med Refill Encounter Details Date Type Department Care Team ([facility] Contact Info) Description 11/09/2024 Refill [facility] [address] [place] [address] Beba Whitten MD [address] [place] [address] Social History Tobacco Use Types Packs/Day Years Used Date Smoking Tobacco: Never Passive Smoke Exposure: Never Smokeless Tobacco: Never Alcohol Use Standard [...] Answer Date Recorded Patient Health Questionnaire-2 Score 2 08/04/2024 Internet Access Answer Date Recorded Internet Access Q1 Yes 06/08/2024 Internet Access Q2 Not on file 06/08/2024 Comments Unknown Sex and Gender Information Value [...] Description 11/26/2024 10:15 AM EDT Office Visit [facility] [address] [place] [address] Nalini Bolanos ANP [address] [place] [address] 12/16/2024 10:30 AM EDT Office Visit [facility] [address] [place] [address] Beba Whitten MD [address] [place] [address] 12/16/2024 1:30 PM EDT Office Visit [facility] OPTOMETRY [address] [place] [address] Eliza Genao, OD 230 [place] [address] documented as of this encounter Visit Diagnoses Not on filedocumented in this encounter Additional Health Concerns Assessment Noted Time PHQ-9 Depression Total Score: 18 024 12:09 PM EST documented as of this encounter Care Teams Java Engineer Relationship Specialty Start Date End Date Beba Whitten MD [address] [place] [address] PCP - General Family Medicine 06/04/16 Franky Obregon Die BakerCellular Equipment Repairer 12/31/23 documented as of this encounter
--- OUTSIDE RECORDS SUMMARY | 2024-11-26 08:07 | XMS_ITS | Encounter Summary ---
Author Organization [employer] Address [address] 7[address] [place] [address] Care Team Providers Care Supervisor Cd Area Name Role Phone Beba Whitten MD Primary Care Provider + Reason for Visit * Reason Onset Date Comments PT1 05/30/2023 Encounter Details Date Type Department Care Team ([facility] Contact Info) Description 05/30/2023 Telephone [facility] & PEDS [address] [place], [place] [phone] Beba Whitten MD [address] [place] [address] PT1 Social History Tobacco Use Types Packs/Day Years [...] encounter Miscellaneous Notes * Telephone Encounter - Ryan Mireles - 06/03/2023 9:40 AM EDT Tc from patient calling to request the status in regards to the message below * Telephone Encounter - Austyn Torres - 05/30/2023 12:12 PM EDT Patient calling requesting PT1 Home Address verified: YES Provider name or facility name: [facility] Facility Address: [address] [place] [address] Escort needed: Y/N: Yes Do you have a wheelchair: Y/N: No If yes- Manual or electric: no Visits: All future Appt's documented in this encounter Plan of Treatment Upcoming Encounters Date Type Department Care Team (Late st Contact Info) Description 11/26/2024 10:15 AM EDT Office Visit [facility] [address] [place] [address] Nalini Bolanos ANP [address] [place] [address] 12/16/2024 10:30 AM EDT Office Visit [facility] [address] [place] [address] Beba Whitten MD 230 [place], [place] [phone] 12/16/2024 1:30 PM EDT Office Visit [facility] OPTOMETRY [address] [place], [place] [phone] Chadwick Eliza, OD 230 [place], [place] [phone] documented as of this encounter Visit Diagnoses Not on filedocumented in this encounter Additional Health Concerns Assessment Noted Time PHQ-9 Depression Total Score: 18 024 12:09 PM EST documented as of this encounter Care Teams Supervisor Cd Area Relationship Specialty Start Date End Date Beba Whitten MD 230 [place], [place] [phone] PCP - General Family Medicine 06/04/16 Franky Obregon Esl ProfessorDigital Technician 12/31/23 documented as of this encounter
--- OUTSIDE RECORDS SUMMARY | 2024-11-26 08:07 | XMS_ITS | Encounter Summary ---
Author Organization [employer] Address [address] [facility] 7t [place] [address] Care Team Providers Care Sign Letterer Name Role Phone Beba Whitten MD Primary Care Provider + Reason for Visit * Reason Onset Date Comments Durable Medical Equipment 07/04/2022 Encounter Details Date Type Department Care Team ([facility] Contact Info) Description 07/04/2022 Telephone [facility] [address] [place] [address] eBba Whitten MD [address] [place] [address] Durable Medical Equipment Social History Tobacco Use Types Packs/Day Years [...] encounter Miscellaneous Notes * Telephone Encounter - Mulu Tucker - 07/04/2022 2:42 PM EDT Script for shower bar generated for signature * Telephone Encounter - Austyn Torres - 07/04/2022 9:51 AM EDT Tc from Leia with [facility] care partners requesting a shower bar. Please contact Leia at [phone] documented in this encounter Plan of Treatment Upcoming Encounters Date Type Department Care Team (Late st Contact Info) Description 11/26/2024 10:15 AM EDT Office Visit [facility] [address] [place] [address] Nalini Bolanos ANP [address] [place] [address] 12/16/2024 10:30 AM EDT Office Visit [facility] [address] [place] [address] Beba Whitten MD [address] [place] [address] 12/16/2024 1:30 PM EDT Office Visit [facility] OPTOMETRY [address] [place] [address] Eliza Genao, OD [address] [place] [address] documented as of this encounter Visit Diagnoses Not on filedocumented in this encounter Additional Health Concerns Assessment Noted Time PHQ-9 Depression Total Score: 7 05/16/19 23 10:24 AM EST documented as of this encounter Care Teams Sign Letterer Relationship Specialty Start Date End Date Beba Whitten MD [address] [place] [address] PCP - General Family Medicine 06/04/16 Franky Obregon Color BlenderMagazine Publisher 12/31/23 documented as of this encounter
--- OUTSIDE RECORDS SUMMARY | 2024-11-26 08:07 | XMS_ITS | Encounter Summary ---
Author Organization [employer] Address [address] [place] [address] Care Team Providers Care Supply Chain Assistant Name Role Phone Beba Whitten MD Primary Care Provider + Reason for Visit * Reason Onset Date Comments chart prep 11/25/2024 Encounter Details Date Type Department Care Team ([facility] Contact Info) Description 11/25/2024 Telephone [facility] [address] [place] [address] Beba Whitten MD [address] [place] [address] chart prep Social History Tobacco Use Types Packs/Day Years [...] encounter Miscellaneous Notes * Telephone Encounter - Lyle Person MA - 11/25/2024 9:41 AM EDT Chart Prep Labs: not done Images: not applicable Referrals: not applicable Vaccines due: Covid, Flu, and RSV Screenings: mammogram, pap smear, eye exam, and foot exam Overdue care gaps: Not applicable documented in this encounter Plan of Treatment Upcoming Encounters Date Type Department Care Team (Late st Contact Info) Description 11/26/2024 10:15 AM EDT Office Visit [facility] [address] [place] [address] Nalini Bolanos ANP [address] [place] [address] 12/16/2024 10:30 AM EDT Office Visit [facility] [address] [place] [address] Beba Whitten MD [address] [place] [address] 12/16/2024 1:30 PM EDT Office Visit [facility] [address] [place], [place] [phone] Eliza Genao, OD 230 [place], [place] [phone] documented as of this encounter Visit Diagnoses Not on filedocumented in this encounter Additional Health Concerns Assessment Noted Time PHQ-9 Depression Total Score: 18 024 12:09 PM EST documented as of this encounter Care Teams Supply Chain Assistant Relationship Specialty Start Date End Date Beba Whitten MD [address] [place], [place] [phone] PCP - General Family Medicine 06/04/16 Franky Obregon Telephone LinemanCuff Presser 12/31/23 documented as of this encounter
--- OUTSIDE RECORDS SUMMARY | 2024-11-26 08:07 | XMS_ITS | Encounter Summary ---
Author Organization [employer] Address [address] [place] [address] Care Team Providers Care Lead Software Qa Engineer Name Role Phone Beba Whitten MD Primary Care Provider + Reason for Visit * Reason Comments Med Refill Encounter Details Date Type Department Care Team ([facility] Contact Info) Description 06/24/2023 Refill [facility] [address] [place], [place] [phone] Beba Whitten MD [address] [place] [address] Primary hypertension Social History Tobacco Use Types Packs/Day Years [...] 11/26/2024 10:15 AM EDT Office Visit [facility] [address] [place] [address] Nalini Bolanos ANP [address] [place] [address] 12/16/2024 10:30 AM EDT Office Visit [facility] [address] [place] [address] Beba Whitten MD [address] [place] [address] 12/16/2024 1:30 PM EDT Office Visit [facility] OPTOMETRY [address] [place] [address] Eliza Genao, OD [address] [place] [address] documented as of this encounter Visit Diagnoses Diagnosis Primary hypertension Unspecified essential hypertension documented in this encounter Additional Health Concerns Assessment Noted Time PHQ-9 Depression Total Score: 18 024 12:09 PM EST documented as of this encounter Care Teams Lead Software Qa Engineer Relationship Specialty Start Date End Date Beba Whitten MD 230 [place] [address] PCP - General Family Medicine 06/04/16 Franky Obregon InletterAirport Screener 12/31/23 documented as of this encounter
--- OUTSIDE RECORDS SUMMARY | 2024-11-26 08:07 | XMS_ITS | Clinical Summary ---
Author Organization [employer] Address [address] [place] [address] [address] [place] [address] Care Team Providers Care Director Packaging Name Role Phone Beba Whitten MD Primary Care Provider + Allergies No known active allergies Medications clonazePAM (KlonoPIN) 1 MG tablet Take 1 mg by mouth 2 times daily. 023 Active FLUoxetine (PROzac) 40 MG capsule TAKE 2 CAPSULES BY MOUTH EVERY DAY AT BEDTIME 023 Active lamoTRIgine (LaMICtal) 100 MG tablet Take 0.5 tablets by mouth 2 times daily. 023 Active pantoprazole (ProtoNix) 40 MG EC tablet Take 40 mg by mouth 2 times daily. 022 Active tiotropium (Spiriva Respimat) 2.5 MCG/ACT inhaler Inhale 1 puff at bed time. 017 Active zolpidem (Ambien) 10 MG tablet Take 10 mg by mouth at bedtime. 023 Active docusate sodium (Colace) 100 MG capsule Take 1 capsule (100 mg) by mouth Once per day. 90 capsule 3 025 2025 Active fluticasone (Flovent HFA) 110 MCG/ACT inhaler Inhale 1 puff every 12 (twelve) hours. 12 g 3 025 Active Blood Glucose Monitoring Suppl (FreeStyle [place] Lite) w/Device kit Use to check BS daily as instructed 1 kit 025 Active traMADol (Ultram) 50 MG tabletIndication s:Lumbar radiculopathy TAKE 1/2 TO 1 TABLET BY MOUTH THREE TIMES DAILY NEEDED FOR PAIN MODERATE TO SEVERE, STOP IF SEDATION FOR UP TO 5 DAYS 15 tablet Active lisinopril 40 MG tabletIndication s:Primary hypertension TAKE 1 TABLET BY MOUTH EVERY DAY 90 tablet 1 Active Aspirin Low Dose 81 MG EC tablet TAKE 1 TABLET BY MOUTH EVERY DAY 90 tablet 1 Active cholecalciferol (Vitamin D-3) 10 MCG (400 UNIT) tablet TAKE 1 TABLET BY MOUTH EVERY DAY 90 tablet 1 Active amLODIPine (Norvasc) 10 MG tabletIndication s:Primary hypertension TAKE 1 TABLET BY MOUTH EVERY DAY IN THE MORNING 90 tablet 3 Active Linzess 290 MCG capsule Take 1 capsule (290 mcg) by mouth in the morning. 90 capsule 3 Active rosuvastatin (Crestor) 40 MG tabletIndication s:Mixed hyperlipidemia Take 1 tablet by mouth every day 90 tablet 3 Active naproxen (Naprosyn) 500 MG tablet Take 1 tablet (500 mg) by mouth 2 times daily. 180 tablet Active gabapentin (Neurontin) 300 MG capsule TAKE 1 CAPSULE BY MOUTH TWICE DAILY 60 capsule Active fluticasone (Flonase) 50 MCG/ACT nasal sprayIndications :Chronic rhinitis SPRAY 1 SPRAY IN EACH NOSTRIL TWICE DAILY 48 g Active acetaminophen (Tylenol 8 Hour) 650 MG ER tabletIndication s:Trigger ring finger of right hand TAKE 1 TABLET BY MOUTH EVERY 8 HOURS NEEDED FOR MILD OR MODERATE PAIN 30 tablet 3 Active metFORMIN (Glucophage) 1000 MG tablet TAKE 1 TABLET BY MOUTH TWICE DAILY IN THE MORNING AND IN THE EVENING WITH MEALS 180 tablet 1 Active betamethasone valerate (Valisone) 0.1 % cream APPLY TOPICALLY IN THE MORNING AND AT BEDTIME NEEDED FOR DRYNESS 45 g 2 Active lidocaine (Lidoderm) 5 % patch APPLY 1 PATCH TOPICALLY ONCE PER DAY. REMOVE AND DISCARD PATCH WITHIN 12 HOURS OR DIRECTED BY MD. 30 patch 2 Active TRUEplus Lancets 33G misc TEST BLOOD SUGAR EVERY DAY 100 each 5 Active glucose blood (FREESTYLE LITE) test strip TEST BLOOD SUGAR ONCE DAILYTEST BLOOD SUGAR ONCE DAILY 100 strip 5 Active albuterol (Ventolin HFA) 108 (90 Base) MCG/ACT inhaler INHALE 1 TO 2 PUFFS BY MOUTH EVERY 4 HOURS 18 g 2 Active loratadine (Claritin) 10 MG tabletIndication s:Non-seasonal allergic rhinitis due to pollen TAKE 1 TABLET BY MOUTH EVERY DAY 90 tablet 1 Active dexAMETHasone (Decadron) 4 MG tablet Take 1 tablet (4 mg) by mouth with breakfast and with evening meal for 5 days. 10 tablet Active Tirzepatide (Mounjaro) 5 MG/0.5ML solution auto-injector Inject 5 mg under the skin 1 (one) time per week. 2 mL 1 025 2024 Active gabapentin (Neurontin) 300 MG capsule TAKE 1 CAPSULE BY MOUTH TWICE DAILY 60 capsule 3 023 2024 Discontinued(R eorder (will not trigger notification to Pharmacy)) fluticasone (Flonase) 50 MCG/ACT nasal sprayIndications :Chronic rhinitis USE 1 SPRAY IN EACH NOSTRIL TWICE DAILY 48 g 023 2024 Discontinued(R eorder (will not trigger notification to Pharmacy)) acetaminophen (Tylenol 8 Hour) 650 MG ER tabletIndication s:Trigger ring finger of right hand Take 1 tablet (650 mg) by mouth every 8 (eight) hours if needed for mild pain or moderate pain. 30 tablet 3 024 2024 Discontinued(R eorder (will not trigger notification to Pharmacy)) metFORMIN (Glucophage) 1000 MG tablet TAKE 1 TABLET BY MOUTH TWICE DAILY IN THE MORNING AND IN THE EVENING WITH MEALS 180 tablet 3 024 2024 Discontinued(R eorder (will not trigger notification to Pharmacy)) betamethasone valerate (Valisone) 0.1 % cream Apply topically if needed in the morning and at bedtime (dryness). 45 g 2 024 2024 Discontinued(R eorder (will not trigger notification to Pharmacy)) dexAMETHasone (Decadron) 4 MG tablet Take 1 tablet (4 mg) by mouth with breakfast and with evening meal for 5 days. 10 tablet 2024 Discontinued(R eorder (will not trigger notification to Pharmacy)) Tirzepatide (Mounjaro) 2.5 MG/0.5ML solution auto-injector Inject 2.5 mg under the skin 1 (one) time per week. 6 mL 2024 Discontinued(R eorder (will not trigger notification to Pharmacy)) lidocaine (Lidoderm) 5 % patch Apply 1 patch topically Once per day. Remove & discard patch within 12 hours or as directed by MD. 90 patch 2024 Discontinued(R eorder (will not trigger notification to Pharmacy)) TRUEplus Lancets 33G misc TEST BLOOD SUGAR EVERY DAY 300 each 2024 Discontinued(R eorder (will not trigger notification to Pharmacy)) glucose blood (FREESTYLE LITE) test strip TEST BLOOD SUGAR ONCE DAILYTEST BLOOD SUGAR ONCE DAILY 300 strip 2024 Discontinued(R eorder (will not trigger notification to Pharmacy)) albuterol (Ventolin HFA) 108 (90 Base) MCG/ACT inhaler INHALE 1 TO 2 PUFFS BY MOUTH EVERY 4 HOURS 54 g 2024 Discontinued(R eorder (will not trigger notification to Pharmacy)) loratadine (Claritin) 10 MG tabletIndication s:Non-seasonal allergic rhinitis due to pollen Take 1 tablet (10 mg) by mouth Once per day. 90 tablet 2024 Discontinued(R eorder (will not trigger notification to Pharmacy)) Tirzepatide (Mounjaro) 2.5 MG/0.5ML solution auto-injector Inject 2.5 mg as directed 1 (one) time per week. INJECT ONE PEN (=2.5 MG) SUBCUTANEOUSLY ONCE A WEEK 2 mL 1 2024 Discontinued(D ose adjustment) meloxicam (Mobic) 7.5 MG tablet Take 1 tablet (7.5 mg) by mouth Once per day. 60 tablet 11 2024 Discontinued(I neffective) cyclobenzaprine (Flexeril) 10 MG tablet Take 1 tablet (10 mg) by mouth at bedtime for 10 days. 10 tablet 025 2024 Discontinued(I neffective) Active Problems Problem Noted Date Diagnosed Date Synovial cyst of hand 02/27/2024 Assessment & Plan (02/27/2024 2:01 PM EST): On left wrist. Will watch her weight and refer to Orthopedics PRN. Reassurance about diagnosis and pt will consult PRN. Flexural eczema 01/05/2024 Assessment & Plan (01/05/2024 5:32 PM EDT): Mild, on right hand Use betamethasone cream prn H/O total hysterectomy 07/08/2023 Assessment & Plan (07/08/2023 1:34 PM EDT): - due to benign condition - no need for additional pap smear Screening mammogram for breast cancer 07/08/2023 Assessment & Plan (07/08/2023 12:58 PM EDT): - pt missed appointment due to severe back pain (will reschedule after pain clinic evaulation) Encounter for preventive health examination 06/16 Assessment & Plan (08/04/2024 12:44 PM EDT): Discussed with patient re increase fresh fruit and vegetable intake. Counseled re moderate exercise as tolerated, up to 20min/d Patient feels safe at home. PAP smear: N/A [facility]ISA Mammogram: UTD, next 1 due 11/2024 Bone density test: N/S, patient wants to defer until after next visit Eye exam: Did not show to appointment at [facility] ophthalmology. Agreed to be referred to [facility] eye clinic CRC screen: up to date, next one in 2030 Lipids/FBS: up to date, next one due 02/2025, will do follow-up BMP and to spot Vaccinations: She declined covid booster and RSV. She does not need Hep-B, TB test negative on 2021 Dental visit: overdue, advised to schedule appointment with dentist soon Assessment & Plan (07/08/2023 3:12 PM EDT): Discussed with patient re increase fresh fruit and vegetable intake. Counseled re moderate exercise as tolerated, up to 20min/d Patient feels safe at home. PAP smear: N/A LISA Mammogram: overdue pt will rescheudle Bone density test: TBO Eye exam: Will obtain OV note from [facility] ophthalmology office and fu with patient at next appt CRC screen: up to date, next one in 2030 Lipids/FBS: up to date, next one due 06/2024 Vaccinations: agreed to Tdap and PCB-20 today, declined covid booster and RSV. She does not need Hep-B, TB test negative on 2021 Dental visit: overdue, advised to schedule appointment with dentist soon Renal cysts, acquired, bilateral 07/03/2023 Assessment & Plan (07/03/2023 1:50 PM EDT): Will fu in 3 month, pt needs to fu again w renal Spinal stenosis at L4-L5 level 06/17/2023 Assessment & Plan (01/05/2024 5:23 PM EDT): It seems to have reached a plateau, has moderate radiculopathy sxs Continue walking with cane and all DMEs at home to prevent falls. Advised to gently starting PT exercises and fu with Pain Clinic next month Advised to come to acupuncture clinic. Rx lidocaine patch prn, take tylenol or naproxen prn as well. She's off gabapentin. Assessment & Plan (07/08/2023 1:34 PM EDT): - significantly improved, but still has with limitations with ambulation and ABL - f/u with neurological and neurosurgeon this month and I will f/u In 1-2 months Assessment & Plan (07/03/2023 3:18 PM EDT): Pain has partially improved with decadron, referred to pain clinic. Fu w/ pain clinic on 07/13, information given to pt and she needs to bring MRI. Continue home PT, precaution with falls, DME rx'd to [facility]. Continue tylenol/naproxen prn Lumbar radiculopathy 06/17/2023 Overview (06/17/2023): MRI L-spine ([facility]) on 05/2023 Referred to pain clinic and neurosurgery Assessment & Plan (08/04/2024 12:46 PM EDT): Decadron 6 to 8 mg daily x 1 week, hold for GI intolerance. Advised to reschedule appointment with pain clinic for an epidural injection Continue tramadol as needed, she is aware that this is not a senior living solution Congratulated on weight reduction, encouraged her to continue stretching exercises for her back Assessment & Plan (04/19/2024 9:37 AM EST): Exacerbated by cold weather. Advised to call pain clinic to schedule an appointment for an epidural injection. I gave her a short supply of tramadol to use cautiously with naproxen for severe pain. We have discussed about the risk of increased respiratory depression with clonazepam and Ambien, she will hold Ambien as much as she can if she is able to sleep without it while taking tramadol. We also discussed about potential interaction with fluoxetine. Continue naproxen, Gabapentin, lidocaine patch as needed pain. We have discussed importance of weight reduction. Ambulation with a walker, show I will sign the placard for the DMV Decreased mobility 06/11/2023 Assessment & Plan (06/11/2023 3:49 PM EDT): - pt has difficulty getting out of bed or chairs most likely due to OA - f/u with home safetly evaluation With VNA, may need bedside commode, shower chair and bars, raised toilet seat, and possibly recliner (she's aware that some of those products may not be covered by insurance) - continue with chiropractor, will evalutate for home PT - D/c Meloxicam, will start Neproxin BID plus Tylenol BID, she did not tolerate Flexeril due to dizziness and risk of falls - f/u MRI results later this week - continue evaluation for home care assistance At increased risk for cardiovascular disease Anxiety 12/26/2022 Assessment & Plan (12/26/2022 2:08 PM EDT): Exacerbated by father's worsening health conditions, we discussed about coping mechanisms in those situations Take Lamictal, clonazepam, and fluoxetine as prescribed and fu closely with counselor Reconsult prn Meralgia paresthetica, left lower limb Assessment & Plan (11/27/2022 10:51 AM EDT): Reassurance, start Tylenol or Celebrex prn Arthritis of left hip 11/27/2022 Assessment & Plan (05/20/2023 12:48 PM EST): Order Pt evluation. See POC above. Assessment & Plan (04/03/2023 1:58 PM EST): Exacerbated probably due to concomitant OA of lumbar spine Will continue ambulation w/ a cane or walker as needed Refer to PT, handicap placard will be renewed for 1 yr Counseled wt reduction Take tylenol or celebrex PRN. Will try to avoid opioid medications as pt is using clonazepam and Ambien Assessment & Plan (11/30/2022 6:29 PM EDT): Get Xray left hip Counseled to use a cane. Refer to PT Use tylenol/celebrex prn Trigger ring finger of right hand 11/27/2022 Assessment & Plan (11/27/2022 10:49 AM EDT): Reassurance Re consult Prn for steroid injection, not interested at this time Housing instability due to b eing behind on payments for place of residence 11/27/2022 Assessment & Plan (11/30/2022 6:30 PM EDT): Will message SDOH to fu with her assist her prn. Limited access to food 05/14/2022 Assessment & Plan (07/03/2023 1:51 PM EDT): Pt lives alone and has difficulty with transfers, will refer to SDOH Hyperplastic polyp of intestine 05/14/2022 Keratosis 05/14/2022 Hypertriglyceridemia 05/14/2022 Radial styloid tenosynovitis 05/14/2022 Varicose veins of lower extremity with inflammat ion 05/14/2022 H. 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 I gave her information regarding [facility] programs and she will reach out to them Continue fluoxetine 80 mg and zolpidem nightly as needed insomnia She feels safe at home and is able to reach out for safety Follow-up with me in 6 to 8 weeks Kidney stones 11/21/2017 Assessment & Plan (05/15/2022 11:22 AM EST): Pt has worseing low back pain, r/o kidney stones Order renal US, if positive will refer her again to see urologist. Increase water intake, take Tylenol or Motrin PRN, may need a prescription for tramadol. Chronic bilateral low back pain with bilateral s ciatica 07/31/2017 Assessment & Plan (06/11/2023 12:48 PM EDT): - most likely related to OA - f/u MRI results, see above (decreased mobility) Assessment & Plan (04/03/2023 1:54 PM EST): Refer to PT Prescription for a walker w/ a seat as she may sit at times due to sciatica Hip pain 07/31/2017 Shoulder pain 07/31/2017 Slow transit constipation 04/14/2017 Assessment & Plan (04/19/2024 9:35 AM EST): Restart Colace daily and use Linzess for constipation or abdominal pain more than 2 days. Increase fiber and water intake. Advised to come to the walk-in center [facility] if she develops constipation abdominal pain for more than 2 days as it could be related to Mounjaro or other conditions. Osteoarthritis of knee 08/29/2016 Asthma-chronic obstructive p ulmonary disease overlap syndrome 12/22/2012 Assessment & Plan (02/27/2024 2:01 PM EST): Controlled, continue Arnuity + albuterol PRN. Calcaneal spur 12/22/2012 Gastroesophageal reflux disease 12/22/2012 History of cholecystectomy 12/22/2012 HTN (hypertension) 12/22/2012 Assessment & Plan (08/04/2024 12:47 PM EDT): Uncontrolled today probably secondary to pain, it is usually well-controlled. Continue lisinopril and amlodipine and follow-up with me in 4 to 6 weeks Continue tramadol as needed for pain along with Tylenol Decadron x 5 days for pain Assessment & Plan (02/27/2024 9:31 AM EST): Controlled. Compliant w/meds Continue lisinopril + amlodipine Counseled re low salt diet/increase moderate physical activity. Check home BP BIW and prn CP/ALMODOVAR/FRANCO Non smoking patient. Assessment & Plan (06/11/2023 12:48 PM EDT): - seems to be uncontrolled - increase Amlodipine to 10mg - continue Lisinopril 40mg - did not tolerate Hydrochlorothiazide - f/u in 1 month Assessment & Plan (12/26/2022 1:58 PM EDT): Uncontrolled Continue lisinopril 40 mg + add amlodipine Counseled re low salt diet/increase moderate physical activity. Check home BP BIW and prn CP/ALMODOVAR/FRANCO Non smoking patient. Counseled regarding stress management techniques and taking Rx regularly FU with me as scheduled Assessment & Plan (11/27/2022 10:48 AM EDT): Uncontrolled. Compliant w/meds Continue lisinopril same dose for now, check BP at home and fu w RN in 4w and 8w w me. Counseled re low salt diet/increase moderate physical activity. Check home BP prn CP/ALMODOVAR/FRANCO Non smoking patient. Assessment & Plan (05/15/2022 11:20 AM EST): Uncontrolled today, most likely related to acute pain. Continue Lisinopril 40 mg and check BP at home twice per week. Counseled re low salt diet/increase moderate physical activity. Check home BP BIW and prn CP/ALMODOVAR/FRANCO Non smoking patient. FU labs in 3 months. Microalbuminuria 12/22/2012 Assessment & Plan (06/11/2023 12:48 PM EDT): - discussed tighter control of DM - patient is on dimas-inhibitor - f/u in 1 year Obstructive sleep apnea syndrome 12/22/2012 Assessment & Plan (07/08/2023 1:32 PM EDT): - pt noncompliant with CPAP, uses it a few times per week only - told her the importace of using CPAP machine every night to decrease risk of morbidity and mortality Mixed hyperlipidemia 12/22/2012 Assessment & Plan (02/27/2024 1:57 PM EST): We discussed re rx options. Recommended moderate amount of exercise and increase consumption of fruit, vegetables, fish and high fiber foods. Should decrease consumption of highly saturated fats or trans fats. Significantly improved, TG not at goal yet. Continue Crestor 40 mg + tight diabetes control. [facility] pain clinic, had bilateral epidural injection with minimal improvement, awaiting weight reduction for surgical decompression. Class 3 severe obesity due t o excess calories with serious comorbidity and body mass index (BMI) of 40.0 to 44.9 in adult 12/22/2012 Assessment & Plan (08/04/2024 12:41 PM EDT): Has lost 20 pounds since she was started on GLP 1, I congratulated her on that. We discussed about cutting down on high-calorie meals, increase exercise Continue Mounjaro 2.5 mg and adjust as needed A1c levels Assessment & Plan (02/27/2024 2:03 PM EST): Pt has lost weight since last year, I will DC Trulicity and switch to Ozempic or Mounjaro, will have a better weight reduction profile, will do PA if needed, and monitor BS closely. Discussed re weight reduction options including exercise, life style modifications, diet and referral to internet database specialist. Recommended to decrease soda and sugary beverage consumption, increase protein intake with meals (at least 1 portion of protein with each meal) to assist with satiety, increase dietary fiber Recommended at least 150 min/week of moderate intensity exercise. Spondylosis 12/22/2012 Assessment & Plan (05/20/2023 2:13 PM EST): Pt has significant OA of the spine and currently seeing a Chiropractor with no improvement. R/o inflammatory arthritis or Ankylosing spondylitis; order labs and X-rays. DC Celebrex and start Meloxicam daily + Tylenol prn. She can not take muscle relaxer as she's afraid of falling at home. She's on clonazepam, I will try to avoid CS, also due to sedation/potential falls. Follow up with me in three weeks. Due to lack of improvement with chiropractor and possible radiculopathy I will order MRI of the spine. Refer to Physical therapy for gait disturbance evaluation and risk of fall. I will send information about Toradol injection. Advised pt to get more information about the medication before going forward with it. Type 2 diabetes mellitus 12/22/2012 Assessment & Plan (08/04/2024 12:40 PM EDT): Controlled, however A1c is low and she does not seem to have symptoms of hypoglycemia Continue on Mounjaro 2.5 mg/week plus metformin twice daily, I will DC glimepiride and follow-up in 6 weeks. Counseled re more frequent low calorie/carb meals. Check fgstk 1x daily Encouraged physical activity as tolerated. Refer to ophthalmology/eye clinic Dental examination overdue, recommended to have dental prophylaxis appointment [facility] Assessment & Plan (04/19/2024 9:38 AM EST): It seems to be controlled even though will switch to Mounjaro, no evidence of hypoglycemia. Will continue glimepiride, metformin and Mounjaro same dose and follow-up in 6 to 8 weeks to make sure that she tolerates current dose of Mounjaro. I may consider increasing Mounjaro and decreasing glimepiride in the future. Follow-up with me in 6 to 8 weeks Assessment & Plan (02/27/2024 2:36 PM EST): Controlled. A1c is at goal. Continue on Glimepiride, Humalog, and Metformin. DC Trulicity, I will switch to Mounjaro 2.5mg/w to maximize weight loss, and FU in 6 weeks to moniotr side effects and BS levels. Counseled re more frequent low calorie/carb meals. Check fgstk 1 x daily Encouraged physical activity as tolerated. Assessment & Plan (01/05/2024 5:29 PM EDT): Controlled. A1c is at goal. Continue on Trulicity and Metformin, she has lost 10+ lb since started on Trulicity. Decreased Amaryl to 2mg/d due to episodes of hypoglycemia, monitor BS closely, fu with me in 4-6w. Counseled re more frequent low calorie/carb meals. Check fgstk 3x daily, can use humalog prn hyperglycemia, she has sliding scale. Encouraged physical activity as tolerated. Advised to get Influenza vax at earliest convenience, she had to leave due to transportation picking her up soon. Assessment & Plan (07/08/2023 3:12 PM EDT): See previous note I will rx Humalog pen to use TID AC meals when she starts on epidural injections. Assessment & Plan (07/03/2023 3:21 PM EDT): Controlled. A1c is at goal. Continue on Trulicity + Amaryl + Metformin same dose. I will add humalog ac meals if she needs to start on epidural injections. Counseled re more frequent low calorie/carb meals. Check fgstk daily Encouraged physical activity as tolerated. FU in 3 months. Assessment & Plan (04/03/2023 1:55 PM EST): Controlled Controlled. A1c is at goal. Continue on Trulicity + Amaryl + metformin Counseled re more frequent low calorie/carb meals. Check fgstk twice daily Encouraged physical activity as tolerated. FU in 3 months. Assessment & Plan (11/27/2022 10:50 AM EDT): Controlled. A1c is at goal. Continue on Trulicity + Amaryl + Metformin Counseled re more frequent low calorie/carb meals. Check fgstk 1x daily Encouraged physical activity as tolerated. FU in 4 months. Assessment & Plan (05/15/2022 11:21 AM EST): Controlled. A1c is at goal. Continue Trulicity + GLimipiride + Metformin Counseled re more frequent low calorie/carb meals. Check fgstk daily Encouraged physical activity as tolerated. FU in x months. Order labs and FU with me in 3 months. Carpal tunnel syndrome of left wrist 12/22/2012 Assessment & Plan (11/27/2022 10:47 AM EDT): Recurrent. She needs to start using left hand brace again and take tylenol prn Resolved Problems Problem Noted Date Diagnosed Date Resolved Date Acute pyelonephritis 07/03/2023 024 Assessment & Plan (07/03/2023 1:50 PM EDT): Significantly improving with antibiotics Complete bactrim x 7 days Asthenia 05/14/2022 07/03/2023 Candidiasis of vagina 05/14/20222022 Epigastric pain 05/14/2022 12/26/2022 Moderate persistent asthma w ith acute exacerbation 05/14/2022 07/03/2023 Exacerbation of intermittent asthma 05/14/2022 12/26/2022 Pain in right ankle joint in creased with plantarflexion 05/14/2022 12/26/2022 Pharyngitis 05/14/2022 07/03/2023 Skin tag 05/14/2022 07/03/2023 Spasm of cervical paraspinous muscle 05/14/2022 12/26/2022 Suspected COVID-19 virus infection 05/14/2022 07/03/2023 Candidiasis of mouth 08/04/2018 024 Right upper quadrant pain 07/06/2018 Acute maxillary sinusitis 04/22/2018 Sudden visual loss 02/20/2018 Pradeep hematuria 06/04/2017 07/03/2023 Tinea pedis 04/14/2017 12/26/2022 Acute otitis externa 01/29/2017 023 Encounters Date Type Department Care Team Description 11/25/2024 Telephone [facility] [address] [place] [address] Beba Whitten MD chart prep 11/25/2024 Telephone [facility] [address] [place] [address] Beba Whitten MD Nurse Triage 11/17/2024 11:00 AM EDT Office Visit [facility] MEDICINE [address] [place] [phone] Clemente Ruffin MD Lumbar radiculopathy (Primary Dx); Spinal stenosis at L4-L5 level 11/17/2024 Travel 11/16/2024 Telephone [facility] [address] [place] [address] Ricardo Aguero MA chart prwep 11/16/2024 Telephone [facility] [address] [place] [address] Beba Whitten MD Nurse Triage 11/09/2024 Refill [facility] [address] [place] [address] Beba Whitten MD 11/08/2024 9:00 AM EDT Office Visit [facility] [address] [place] [phone] Claudia Ellis MD Primary osteoarthritis of right hip (Primary Dx) 11/08/2024 Travel 11/06/2024 Refill [facility] [address] [place] [address] Beba Whitten MD Chronic rhinitis; Trigger ring finger of right hand; Lumbar radiculopathy; Primary hypertension; Mixed hyperlipidemia; Non-seasonal allergic rhinitis due to pollen 08/26/2024 Telephone [facility] [address] [place] [address] Beba Whitten MD November recall from Last 3 Months Immunizations Immunization Administration Dates Next Due Influenza Injectable Quadriv alant Preservative Free IIV4 MDCK 02/16/2021 Influenza injectable quadriv alent IIV4 with preservative 01/23/2018,01/07/2017 Influenza injectable quadriv alent preservative free 12/20/2021,02/22/2020,02/02/2019 Influenza, Split (incl. aimee fied surface antigen) 12/22/2012 Influenza, seasonal, injecta ble, preservative free 02/27/2024 Pneumococcal Conjugate PCV 20 07/08/2023 Pneumococcal Polysaccharide PPSV23 01/29/2017 Tdap 07/08/2023,12/22/2012 Zoster, Recombinant 10/12/2021,08/06/2021 Social History Tobacco Use Types Packs/Day Years Used Date Smoking Tobacco: Never Passive Smoke Exposure: Never Smokeless Tobacco: Never Tobacco Cessation:Counseling Given: Not Answered Alcohol Use Standard Drinks/Week Comments Never 0 [...] Orientation Straight 01/14/2022 10 :16 AM EDT Last Filed Vital Signs Vital Sign Reading Time Taken Comments Blood Pressure 118/72 11/17/2024 10:47 AM EDT Pulse 104 11/17/2024 10:47 AM EDT Temperature 36.3 C (97.3 F) 11/17/2024 10:47 AM EDT Respiratory Rate 14 11/17/2024 10:47 AM EDT Oxygen Saturation 94% 11/17/2024 10:47 AM EDT Inhaled Oxygen Concentration - - Weight 98.7 kg (217 lb 9.6 oz) 11/17/2024 10:47 AM EDT Height 154.9 cm (5' 1 ) 11/17/2024 10:47 AM EDT Body Mass Index 41.12 11/17/2024 10:47 AM EDT Plan of Treatment Upcoming Encounters Date Type Department Care Team (Late st Contact Info) Description 11/26/2024 10:15 AM EDT Office Visit [facility] [address] [place] [address] Nalini Bolanos ANP [address] [place] [address] 12/16/2024 10:30 AM EDT Office Visit [facility] [address] [place] [address] Beba Whitten MD [address] [place] [address] 12/16/2024 1:30 PM EDT Office Visit [facility] [address] [place] [address] Eliza Genao, OD [address] [place] [address] Health Maintenance Due Date Last Done Comments CT Colonography 1962 FIT DNA/Cologuard 1962 FIT 1962 FOBT 1962 HIV Screening 1960 Sigmoidoscopy 1962 Eye Exam 1972 Pap Smear 1983 Cervical Cancer Screening 1992 HPV/Cotest 1992 RSV Patients and Patients Aged 60 years or older (1 - Risk 60-74 years 1-dose series) 2022 Diabetes: Urine Protein Screening 06/03/2024 06/04/2023, 11/23/2021, 01/26/2020 Diabetes: Foot Exam 07/07/2024 07/08/2023, 07/08/2023, 07/08/2023, Additional history exists COVID-19 Vaccine ( season) 2024 10/26/2021, 02/14/2021, 06/14/2020, Additional history exists Influenza Vaccine (#1) 2024 , 12/20/2021, 02/16/2021, Additional history exists Mammogram 12/01/2024 12/02/2023, 01/15, 01/25/2022, Additional history exists Depression Monitoring 02/04/2025 08/04/2024, 024 Diabetes: Hemoglobin A1C 02/04/2025 025, 01/05/2024, 07/03/2023, Additional history exists Lipid Panel 02/23/2025 02/24/2024, 05/16, 11/23/2021, Additional history exists SDOH Screening 06/08/2025 06/08/2024 Alcohol/Substance Use Screening 11/17/2025 11/17/2024 Disability Screening 11/17/2025 11/17/2024 Tobacco Screening 11/17/2025 11/17/2024 Colonoscopy 05/31/2029 06/01/2019 Colorectal Cancer Screening 05/31/2029 DTaP/Tdap/Td Vaccines (3 - Td or Tdap) 07/07/2033 07/08/2023, 12/22/2012 Zoster Vaccines Completed 10/12/2021, 08/06/2021 Hepatitis C Screening Completed 06/04/2023 Pneumococcal Vaccine: 50+ Years Completed 07/08/2023, 01/29/2017 HIB Vaccines Aged Out No longer eligi ble based on patient's age to complete this topic HPV Vaccines Aged Out No longer eligi ble based on patient's age to complete this topic Hepatitis A Vaccines Aged Out No long er eligible based on patient's age to complete this topic Hepatitis B Vaccines Aged Out No long er eligible based on patient's age to complete this topic IPV Vaccines Aged Out No longer eligi ble based on patient's age to complete this topic Meningococcal B Vaccine Aged Out No l onger eligible based on patient's age to complete this topic Meningococcal Vaccine Aged Out No gutierrez pau eligible based on patient's age to complete this topic RSV under 20 months Aged Out No longe r eligible based on patient's age to complete this topic Rotavirus Vaccines Aged Out No longer eligible based on patient's age to complete this topic Procedures Procedure Name Priority Date/Time Associated Diagnosis Comments POCT GLYCATED HEMOGLOBIN, TOTAL Routine 08/04/2024 10:30 AM EDT Type 2 diabetes mellitus with hyperglycemia, without long-term current use of insulin (CMS/HCC) LIPID PANEL WITH REFLEX TO DIRECT LDL Routine 02/24/2024 9:05 AM EST Type 2 diabetes mellitus with hyperglycemia, without long-term current use of insulin (CMS/HCC) BI MAMMOGRAM SCREENING TOMOSYNTHESIS BILATERAL Routine 12/02/2023 9:40 AM EDT HEPATITIS PANEL, GENERAL Routine 06/04/2023 9:46 AM EDT Spondylosis Arthritis of left hip ALBUMIN, RANDOM URINE W/CREATININE Routine 06/04/2023 9:46 AM EDT Type 2 diabetes mellitus with hyperglycemia, without long-term current use of insulin (CMS/HCC) HM COLONOSCOPY Routine 06/01/2019 from Last 3 Months or Most Recently Relevant to Health Maintenance Results * POCT HGB A1C (08/04/2024 10:30 AM EDT) Hemoglobin A1C 5.9 4.0 - 6.0 % QC Media Lot # [id number] Lot# Expiration Date Blood 08/04/2024 10:3 0 AM EDT us Beba Whitten MD POINT OF CARE TEST ENTER /EDIT ORDERABLES Final Result * (ABNORMAL) Lipid Panel with Reflex to Direct LDL (02/24/2024 9:05 AM EST) Triglycerides 203(H) <150 mg/dL [facility] Comment:Desirable Triglyceri de: less than 150 mg/dLBorderline High Triglyceride 150-199 mg/dLHigh Triglyceride: 200-499 mg/dLVery High Triglyceride: greater than or equal to 5OO mg/dL Cholesterol 159 <200 mg/dL [facility] Comment:Desirable Cholestero l: less than 200 mg/dLBorderline High Cholesterol: 200-239 mg/dLHigh Cholesterol: greater than 239 mg/dL LDL Cholesterol Calculated 76 <100 mg/dL [facility] Comment:Desirable LDL: less than 100 mg/dLNear Optimal/Above Optimal LDL: 110- 129 mg/dLBorderline High LDL: 130-159 mg/dLHigh LDL: 160-189 mg/dLVery High LDL: greater than or equal to 190 mg/dL HDL Cholesterol 43 >40 mg/dL [facility] Comment:Desirable HDL: great er than 40 mg/dL Note: This HDL assay may give artificially low results in patients with liver disease. Blood 02/24/2024 9:05 AM EST 02/24/2024 11:36 AM EST Beba Whitten MD LAB BLOOD ORDERABLES Fin al Result [facility] [address] [place] [phone] * BI Mammogram Screening Tomosynthesis Bilateral (12/02/2023 9:40 AM EDT) Anatomical Region Laterality Modality Breast Bilateral Mammography 12/02/2023 9:40 AM EDT Narrative 12/15/2023 4:12 PM EDT [facility] [place] [address] Mammography Report Signed Patient: Marcia Corona MR#: [id number] : 1960 Acct:[id number] Age/Sex: 63 / F ADM Date: 12/02/23 Loc: HO.MAMMO Attending Dr: Beba Whitten MD Ordering Physician: Beba Whitten MD Results: 1Ne gative Date of Service: 12/02/23 Follow Up: 1 Year From Orig ina Mammogram Procedure(s): MM tomosynthesis screening BI Accession Number(s): [id number] cc: Beba Whitten MD EXAMINATION: MM SCREENING DIGITAL BREAST TOMOSYNTHESIS, BILATERAL CLINICAL INFORMATION: Screening. Asymptomatic. COMPARISON: Mammography: Comparison is made with available priors TECHNIQUE: Digital breast mammography with tomosynthesis is performed in both the craniocaudal and mediolateral oblique views along with computer-aided detection (CAD). FINDINGS: There are scattered areas of fibroglandular density (ACR BI-RADS breast composition Category b). There are no significant masses, abnormal calcifications, or other abnormalities. MM/MM tomosynthesis screening BI IMPRESSION: No mammographic evidence of malignancy. ASSESSMENT: BI-RADS BI-RADS 1 - Negative RECOMMENDATION: Routine annual mammography screening. 1 year F/U This examination should not preclude the clinical evaluation of a suspicious palpable abnormality. This patient's information was entered into a reminder system with a target due date for their next mammogram. Electronically signed by: Shazia Jones DO 12/15/2023 04:09 PM EDT Dictated By: Shazia Jones DO Signed By: <Electronically signed by Shazia Jones DO in OV> 12/15/23 1609 DD/ 9 TD/TT: 12/02/2350 Accounts Payable Supervisor: Procedure Note Donotuseinterpreter, Image - 12/15/2023 [facility] [address] [place] [address] Mammography Report Signed Patient: Mj Corona#: [id number] : 1960Acct:[id number] Age/Sex: 63 / FADM Date: 12/02/23 Loc: HO.MAMMO Attending Dr: Beba Whitten MD Ordering Physician: Beba Whitten MDResults: 1Ne gative Date of Service: 12/02/23Follow Up: 1 Year From Orig inal Mammogram Procedure(s): MM tomosynthesis screening BI Accession Number(s): [id number] cc: Beba Whitten MD EXAMINATION: MM SCREENING DIGITAL BREAST TOMOSYNTHESIS, BILATERAL CLINICAL INFORMATION: Screening. Asymptomatic. COMPARISON: Mammography: Comparison is made with available priors TECHNIQUE: Digital breast mammography with tomosynthesis is performed in both the craniocaudal and mediolateral oblique views along with computer-aided detection (CAD). FINDINGS: There are scattered areas of fibroglandular density (ACR BI-RADS breast composition Category b). There are no significant masses, abnormal calcifications, or other abnormalities. MM/MM tomosynthesis screening BI IMPRESSION: No mammographic evidence of malignancy. ASSESSMENT: BI-RADS BI-RADS 1 - Negative RECOMMENDATION: Routine annual mammography screening. 1 year F/U This examination should not preclude the clinical evaluation of a suspicious palpable abnormality. This patient's information was entered into a reminder system with a target due date for their next mammogram. Electronically signed by: Shazia Jones DO 12/15/2023 04:09 PM EDT Dictated By: Shazia Jones DO Signed By: <Electronically signed by Shazia Jones DO in OV> 12/15/23 1609 DD/ TD/TT: 12/02/2350 Accounts Payable Supervisor: us Beba Whitten MD IMG BI PROCEDURES Final Result * Hepatitis Panel, General (06/04/2023 9:46 AM EDT) Hepatitis A IgM Nonreactive Nonreactive [facility] Comment:IgM antibodies to ALMODOVAR V not detected; does not exclude earlyacute or recovered HAV infection. ~Hepatitis B Surface Antibody NONREACTIVE Nonreactive [facility] Comment:Nonreactive: < 8.00 mIU/mL Hepatitis B Core Antibody Nonreactive Nonreactive [facility] Hepatitis C Antibody Nonreactive Nonreactive [facility] Comment:Antibodies to HCV no t detected; does not exclude early acuteHCV infection. Hepatitis B Surface Ag Negative Negative [facility] Blood 06/04/2023 9:46 AM EDT 06/04/2023 11:20 AM EDT Beba Whitten MD LAB BLOOD ORDERABLES Fin al Result Performing Organization Address [facility] Co de Phone Number [facility] [address] [place] [phone] * (ABNORMAL) Albumin, Random Urine W/Creatinine (06/04/2023 9:46 AM EDT) Creatinine, Urine 185.21 mg/dL [facility] Microalbumin Urine 334.0 mg/L [facility] Microalbum Creatinine Ratio Ur 180.3(H) <30 ug/mg cr [facility] Comment:Albumin/Creatinine R atio Reference Ranges: Normal: < 30 ug/mg creatinine Microalbuminuria: 30 - 300 ug/mg creatinineClinical Albuminuria: > 300 ug/mg creatinine Urine (Urine, Random) 06/04/2023 9:46 AM EDT 06/04/2023 11:31 AM EDT Beba Whitten MD LAB URINE ORDERABLES Fin al Result Performing Organization Address [facility] Co de Phone Number [facility] [address] [place] [phone] * Colonoscopy (06/01/2019) Colonoscopy Normal Normal [facility] 06/01/2019 Beba Whitten MD HEALTH MAINTENANCE Edite d Result - Final [facility] [address] [place] [phone] from Last 3 Months or Most Recently Relevant to Health Maintenance Insurance [address] [place], [place] [address] Care Teams Director Packaging Relationship Specialty Start Date End Date Beba Whitten MD [address] [place] [address] PCP - General Family Medicine 06/04/16 Franky Obregon Master ShipServices Engineer 12/31/23
--- OUTSIDE RECORDS SUMMARY | 2024-11-26 08:07 | XMS_ITS | Encounter Summary ---
Author Organization [employer] Address [address] [place] [address] Care Team Providers Care Mortuary Operations Manager Name Role Phone Beba Whitten MD Primary Care Provider + Reason for Visit * Reason Onset Date Comments Nurse Triage 11/25/2024 Encounter Details Date Type Department Care Team ([facility] Contact Info) Description 11/25/2024 Telephone [facility] [address] [place] [address] Beba Whitten MD [address] [place] [address] Nurse Triage Social History Tobacco Use Types [...] encounter Miscellaneous Notes * Telephone Encounter - Yesi Weinberg RN - 11/25/2024 9:33 AM EDT called pt to triage, spoke to pt through [employer] Officer. pt states persistent cough, lots of mucous without sputum production, and mild headache. pt states using her inhaler without much relief and wants something to clear the mucous. pt denies known exposures, known high fever, rash, severe orsustained sob, vomiting, or other associated symptoms. pt speaking in full sentences without significant pausing or audible distress/wheezing. given appt tomorrow with green team provider at 10:15 for exam. pt understands and agrees with plan. advised home care: rest, fluids, steam, humidifier, monitor temperature, OTC pain or fever reliever as needed and call back as needed. insurance verified. Protocol Used: Cough (Adult) Protocol-Based Disposition: See in Office or Video Visit Today or Tomorrow Video visit offer not recorded Positive Triage Question: * Patient wants to be seen * All higher-acuity triage questions were negative Care Advice Discussed: * Reassurance and Education - Cough * Cough Medicines * Cough Syrup With Dextromethorphan * Coughing Spells * Prevent Dehydration * Avoid Tobacco Smoke * Humidifier * Fever Medicines * Reasons To Call Back - Difficulty breathing - Cough lasts more than 3 weeks - Fever lasts more than 3 days - You become worse * Telephone Encounter - Clemente Gonzales - 11/25/2024 8:53 AM EDT Symptom: Cough ( pt has mucus in the cough that wont go away. Pt wants a medication that can help remove the mucus. Outcome: Schedule an appointment to be seen within 24 hours Reason: Caller denied all higher acuity questions The caller accepted this outcome. documented in this encounter Plan of Treatment Upcoming Encounters Date Type Department Care Team (Late st Contact Info) Description 11/26/2024 10:15 AM EDT Office Visit [facility] [address] [place] [address] Nalini Bolanos ANP [address] [place] [address] 12/16/2024 10:30 AM EDT Office Visit [facility] [address] [place] [address] Beba Whitten MD [address] [place] [address] 12/16/2024 1:30 PM EDT Office Visit [facility] [address] [place] [address] Chadwick, Eliza, OD [address] [place] [address] documented as of this encounter Visit Diagnoses Not on filedocumented in this encounter Additional Health Concerns Assessment Noted Time PHQ-9 Depression Total Score: 18 024 12:09 PM EST documented as of this encounter Care Teams Mortuary Operations Manager Relationship Specialty Start Date End Date Beba Whitten MD [address] [place] [address] PCP - General Family Medicine 06/04/16 Franky Obregon Assistant Manager BilingualBottom Scrubber 12/31/23 documented as of this encounter
--- OUTSIDE RECORDS SUMMARY | 2024-11-26 08:07 | XMS_ITS | Encounter Summary ---
Author Organization [employer] Address [address] [place] [address] [address] [place] [address] Care Team Providers Care Teacher [employer] Name Role Phone Beba Whitten MD Primary Care Provider + Encounter Details Date Type Department Care Team (Late Contact Info) Description 04/05/2022 Orders Only [facility] [address] [place] [phone] Alycia Iglesias LPN Social History Tobacco Use Types Packs/Day Years Used Date Smoking Tobacco: Never Assessed Comments Unknown Sex and Gender Information Value Date Recorded Sex Assigned at Female 01/14/2022 10:16 AM EDT Legal Sex Female 10:16 AM EDT Gender Identity Female 01/14/2022 10:16 AM EDT Sexual Orientation Straight 01/14/2022 10 :16 AM EDT documented as of this encounter Plan of Treatment Upcoming Encounters Date Type Department Care Team (Late Contact Info) Description 11/26/2024 10:15 AM EDT Office Visit [facility] [address] [place] [phone] Nalini Bolanos ANP [address] [place] [address] 12/16/2024 10:30 AM EDT Office Visit [facility] [address] [place] [phone] Beba Whitten MD [address] [place] [address] 12/16/2024 1:30 PM EDT Office Visit [facility] [address] [place] [phone] Chadwick, Eliza, OD [address] [place] [address] documented as of this encounter Visit Diagnoses Not on filedocumented in this encounter Care Teams Teacher [employer] Relationship Specialty Start Date End Date Beba Whitten MD [address] [place] [address] PCP - General Family Medicine 06/04/16 Franky Obregon Deputy County CounselAnd Drying Supervisor Cooking Casing 12/31/23 documented as of this encounter
[2024-11-26 11:56] LABS: Anion Gap 11 (12-20); Blood Urea Nitrogen 18 mg/dL (9-16); Calcium 9.7 mg/dL (8.4-10.2); Carbon Dioxide 29 mmol/L (22-29); Chloride 105 mmol/L (96-108); Estimated Glomerular Filt Rate > 60; Potassium 3.9 mmol/L (3.3-5.1); Sodium 141 mmol/L (135-145)
[2024-11-29 22:23] LABS: TS Negative Control Passed; TS Panel A 2; TS Panel B 1; TS Positive Control Passed; TSpotTB Negative (Negative)
== END 2024-11-26 08:04 | disposition home or self-care (01) ==
LOC: HO.HHCL 08:03
PROVIDERS: PCP Internal Medicine; Visit Provider Internal Medicine
DX: Z00.00 Encounter for general adult medical examination without abnormal findings (principal); Z11.1 Encounter for screening for respiratory tuberculosis; E11.65 Type 2 diabetes mellitus with hyperglycemia; M54.16 Radiculopathy, lumbar region
CPT/HCPCS: 36415; 80048; 82306; 86481

== ENCOUNTER 2024-12-16 11:39 | Outpatient (REF) | payer MEDICAID, SELFPAY ==
--- NOTE | ~2024-12-16 | XR_ITS ---
EXAMINATION: XR CHEST CLINICAL INFORMATION: cough x >3mo COMPARISON: 11/07/2020. TECHNIQUE: 2 views of the chest were obtained. FINDINGS: The cardiac, hilar, and mediastinal contours are normal. Prominent epicardial fat pad noted. The lungs are clear bilaterally. There is no pneumothorax or pleural effusion. There is no focal osseous or soft tissue abnormality. There are degenerative spinal changes. XR/XR chest 2V IMPRESSION: No active pulmonary disease. Electronically signed by: Ronald Arriaga MD 12/16/2024 12:13 PM EDT
--- OUTSIDE RECORDS SUMMARY | 2024-12-16 10:30 | XMS_ITS | Encounter Summary ---
Author Organization [employer] Address [address] [facility] 7[address] [place] [address] Care Team Providers Care Curriculum Advisory Teacher Name Role Phone Beba Whitten MD Primary Care Provider + Encounter Details Date Type Department Care Team (Latest Contact Info) Description 12/16/2024 10:30 AM EDT Office Visit [facility] MEDICINE [address] [place], [place] [phone] Beba Whitten MD [address] [place] [address] Type 2 diabetes mellitus with hyperglycemia, without long-term current use of insulin (HCC) (Primary Dx); Subacute cough; Spinal stenosis at L4-L5 level; Lumbar radiculopathy Social History Tobacco Use Types Packs/Day Years [...] Answer Date Recorded Patient Health Questionnaire-9 Score 21 12/16/2024 Patient Health Questionnaire-9 Score 21 12/16/2024 Last PHQ-9: Questionnaire Data Not on file 1 Housing Stability Answer Date Recorded What is [...] Date Recorded Patient Health Questionnaire-2 Score 6 12/16/2024 Internet Access Answer Date Recorded Internet Access Q1 Yes 06/08/2024 Internet Access Q2 Not on file 06/08/2024 Comments Unknown Sex and Gender Information Value Date Recorded Sex Assigned at Female 01/14/2022 10:16 AM EDT Legal Sex Female 10:16 AM EDT Gender Identity Female 01/14/2022 10:16 AM EDT Sexual Orientation Straight 01/14/2022 10 :16 AM EDT documented as of this encounter Last Filed Vital Signs Vital Sign Reading Time Taken Comments Blood Pressure 110/60 12/16/2024 10:14 AM EDT Pulse 103 12/16/2024 10:14 AM EDT Temperature 35.3 C (95.6 F) 12/16/2024 10:14 AM EDT Respiratory Rate 15 12/16/2024 10:14 AM EDT Oxygen Saturation 96% 12/16/2024 10:14 AM EDT Inhaled Oxygen Concentration - - Weight 99.1 kg (218 lb 6.4 oz) 12/16/2024 10:14 AM EDT Height 154.9 cm (5' 1 ) 12/16/2024 10:14 AM EDT Body Mass Index 41.27 12/16/2024 10:14 AM EDT documented in this encounter Functional Status * Over the past 2 weeks, how often have you been bothered by any of the following problems? Question Answer Date of Assessment Author Patient Health Questionnaire -2 Score 6 12/16/2024 11:39 AM EDT Liliana Torres MA * Little interest or pleasure in doing things Answer Date of Assessment Author Nearly every day 12/16/2024 11:39 AM EDT Liliana Torres MA * Feeling down, depressed, or hopeless Answer Date of Assessment Author Nearly every day 12/16/2024 11:39 AM EDT Liliana Torres MA * Trouble falling or staying asleep, or sleeping too much Answer Date of Assessment Author Nearly every day 12/16/2024 11:39 AM EDT Liliana Torres MA * Feeling tired or having little energy Answer Date of Assessment Author Nearly every day 12/16/2024 11:39 AM EDT Liliana Torres MA * Poor appetite or overeating Answer Date of Assessment Author More than half the days 12/16/2024 11:39 AM EDT Liliana Torres MA * Feeling bad about yourself - or that you are a failure or have let yourself or your family down Answer Date of Assessment Author Several days 12/16/2024 11:39 AM EDT Liliana Torres MA * Trouble concentrating on things, such as reading the newspaper or watching television Answer Date of Assessment Author Several days 12/16/2024 11:39 AM EDT Liliana Torres MA * Moving or speaking so slowly that other people could have noticed? Or the opposite - being so fidgety or restless that you have been moving around a lot more than usual. Answer Date of Assessment Author More than half the days 12/16/2024 11:39 AM EDT Liliana Torres MA * Thoughts that you would be better off or hurting yourself in some way Answer Date of Assessment Author Nearly every day 12/16/2024 11:39 AM EDT Liliana Torres MA * Patient Health Questionnaire-9 Score Answer Date of Assessment Author 21 12/16/2024 11:39 AM EDT Liliana Torres MA * How difficult have these problems made it for you to do your work, take care of things at home, or get along with other people? Answer Date of Assessment Author Extremely difficult 12/16/2024 11:39 AM EDT Liliana Torres MA documented as of this encounter Plan of Treatment Upcoming Encounters Date Type Department Care Team (Late st Contact Info) Description 12/16/2024 1:30 PM EDT Office Visit [facility] OPTOMETRY [address] [place] [address] Eliza Genao, OD [address] [place] [address] documented as of this encounter Procedures Procedure Name Priority Date/Time Associated Diagnosis Comments XR CHEST 2 VIEWS Routine 12/16/2024 11:5 5 AM EDT Spinal stenosis at L4-L5 level POCT GLYCATED HEMOGLOBIN, TOTAL Routine 12/16/2024 11:02 AM EDT Type 2 diabetes mellitus with hyperglycemia, without long-term current use of insulin (HCC) POCT GLUCOSE Routine 12/16/2024 11:02 AM EDT Type 2 diabetes mellitus with hyperglycemia, without long-term current use of insulin (HCC) documented in this encounter Results * XR Chest 2 Views (12/16/2024 11:55 AM EDT) Anatomical Region Laterality Modality Chest Radiographic Cecilia ging 12/16/2024 11:5 5 AM EDT Narrative 12/16/2024 12:16 PM EDT [facility] [address] [place] [address] XRay Report Signed Patient: Marcia Corona MR#: [id number] : 1960 Acct:[id number] Age/Sex: 64 / F ADM Date: 12/16/24 Loc: .[facility] Attending Dr: Beba Whitten MD Ordering Physician: Beba Whitten MD Date of Service: 12/16/24 Procedure(s): XR chest 2V Accession Number(s): [id number] cc: Beba Whitten MD Reason for Exam: cough x >3mo EXAMINATION: XR CHEST CLINICAL INFORMATION: cough x >3mo COMPARISON: 11/07/2020. TECHNIQUE: 2 views of the chest were obtained. FINDINGS: The cardiac, hilar, and mediastinal contours are normal. Prominent epicardial fat pad noted. The lungs are clear bilaterally. There is no pneumothorax or pleural effusion. There is no focal osseous or soft tissue abnormality. There are degenerative spinal changes. XR/XR chest 2V IMPRESSION: No active pulmonary disease. Electronically signed by: Ronald Arriaga MD 12/16/2024 12:13 PM EDT RP Dictated By: Ronald Arriaga MD Signed By: <Electronically signed by Ronald Arriaga MD in OV> 12/16/24 1213 DD/ 54 TD/TT: 12/16/241154 And Taxi Instructor Bus Trolley: Procedure Note Donotuseinterpreter, Image - 12/16/2024 [place] [address] XRay Report Signed Patient: Mj Corona#: [id number] : 1960Acct:[id number] Age/Sex: 64 / FADM Date: 12/16/24 [facility]: Beba Whitten MD Ordering Physician: Beba Whitten MD Date of Service: 12/16/24 Procedure(s): XR chest 2V Accession Number(s): [id number] cc: Beba Whitten MD Reason for Exam: cough x >3mo EXAMINATION: XR CHEST CLINICAL INFORMATION: cough x >3mo COMPARISON: 11/07/2020. TECHNIQUE: 2 views of the chest were obtained. FINDINGS: The cardiac, hilar, and mediastinal contours are normal. Prominent epicardial fat pad noted. The lungs are clear bilaterally. There is no pneumothorax or pleural effusion. There is no focal osseous or soft tissue abnormality. There are degenerative spinal changes. XR/XR chest 2V IMPRESSION: No active pulmonary disease. Electronically signed by: Ronald Arriaga MD 12/16/2024 12:13 PM EDT RP Dictated By: Ronald Arriaga MD Signed By: <Electronically signed by Ronald Arriaga MD in OV> 12/16/24 1213 DD/ 1155 TD/TT: 12/16/241154 And Taxi Instructor Bus Trolley: us Beba Whitten MD IMG XR PROCEDURES Edited Result - Final * (ABNORMAL) POCT Hgb A1c (12/16/2024 11:02 AM EDT) Hemoglobin A1C 6.8(A) 4.0 - 5.7 % QC Media Lot # [id number] Lot# Expiration Date [id number] Blood 12/16/2024 11:0 2 AM EDT Beba Whitten MD POINT OF CARE TEST ENTER /EDIT ORDERABLES Final Result * POCT Glucose (12/16/2024 11:02 AM EDT) Glucose Blood, POC 189 60 - 200 mg/dL QC Media Lot # [id number] Lot# Expiration Date 22,726 Blood Capillary blood specimen / Unknown 12/16/2024 11:02 AM EDT Beba Whitten MD POINT OF CARE TEST ENTER /EDIT ORDERABLES Final Result documented in this encounter Visit Diagnoses Diagnosis Type 2 diabetes mellitus with hyperglycemia, without long-term current use of insulin (HCC)- Primary Subacute cough Spinal stenosis at L4-L5 level Lumbar radiculopathy Thoracic or lumbosacral neuritis or radiculitis, unspecified documented in this encounter Additional Health Concerns Assessment Noted Time PHQ-9 Depression Total Score: 21 025 11:39 AM EDT documented as of this encounter Care Teams Curriculum Advisory Teacher Relationship Specialty Start Date End Date Beba Whitten MD [address] [place] [id number] PCP - General Family Medicine 06/04/16 Franky Obregon Hatch BossNegative Turner Apprentice 12/31/23 documented as of this encounter
--- OUTSIDE RECORDS SUMMARY | 2024-12-16 13:29 | XMS_ITS | Encounter Summary ---
Author Organization [employer] Address [address] [facility] [address] [place] [address] Care Team Providers Care Career Services Director Name Role Phone Beba Whitten MD Primary Care Provider + Reason for Visit * Reason Onset Date Comments Med Refill 12/16/2024 Encounter Details Date Type Department Care Team (Late st Contact Info) Description 12/16/2024 Refill [facility] MEDICINE [address] [place], [place] [phone] Beba Whitten MD [address] [place] [address] Lumbar radiculopathy; Primary hypertension; Mixed hyperlipidemia Social History Tobacco Use Types [...] AM EDT documented as of this encounter Functional Status * Over the [...] Assessment Author Several days 12/16/2024 11:39 AM SUSIT Liliana Torres MA * Trouble concentrating on [...] Author Nearly every day 12/16/2024 11:39 AM Liliana Vasquez MA * Patient Health Questionnaire-9 Score Answer Date of Assessment Author 12/16/2024 11:39 AM EDT Liliana Torres MA [...] Description 12/16/2024 1:30 PM EDT Office Visit [facility] OPTOMETRY [address] [place] [address] Eliza Genao, OD [address] [place] [address] documented as of this encounter Visit Diagnoses Diagnosis Lumbar radiculopathy Thoracic or lumbosacral neuritis or radiculitis, unspecified Primary hypertension Unspecified essential hypertension Mixed hyperlipidemia documented in this encounter Additional Health Concerns Assessment Noted Time PHQ-9 Depression Total Score: 21 025 11:39 AM EDT documented as of this encounter Care Teams Career Services Director Relationship Specialty Start Date End Date Beba Whitten MD [address] [place] [address] PCP - General Family Medicine 06/04/16 Franky Obregon Membership AdvisorVice President Underwriting 12/31/23 documented as of this encounter
--- OUTSIDE RECORDS SUMMARY | 2024-12-16 13:29 | XMS_ITS | Encounter Summary ---
Author Organization [employer] Address [address] [facility] [address] [place] [address] Care Team Providers Care Client Services Vice President Name Role Phone Beba Whitten MD Primary Care Provider + Reason for Visit * Reason Onset Date Comments Chart Prep 12/16/2024 Encounter Details Date Type Department Care Team ([facility] Contact Info) Description 12/16/2024 Telephone [facility] MEDICINE [address] [place], [place] [phone] Beba Whitten MD [address] [place] [address] Chart Prep Social History Tobacco Use Types Packs/Day Years [...] encounter Miscellaneous Notes * Telephone Encounter - Abbi Henderson MA - 12/16/2024 7:41 AM EDT Chart Prep Labs: done Images: not applicable Referrals: complete Vaccines due: Covid, Flu, and RSV Screenings: mammogram, pap smear, eye exam, and foot exam Overdue care gaps: Glucose and PHQ-9 documented in this encounter Plan of Treatment Upcoming Encounters Date Type Department Care Team (Late st Contact Info) Description 12/16/2024 1:30 PM EDT Office Visit [facility] OPTOMETRY [address] [place] [address] Eliza Genao, OD [address] [place] [address] documented as of this encounter Visit Diagnoses Not on filedocumented in this encounter Additional Health Concerns Assessment Noted Time PHQ-9 Depression Total Score: 21 025 11:39 AM EDT documented as of this encounter Care Teams Client Services Vice President Relationship Specialty Start Date End Date Beba Whitten MD [address] [place] [address] PCP - General Family Medicine 06/04/16 Franky Obregon Boiler CleanerEdm Operator 12/31/23 documented as of this encounter
--- OUTSIDE RECORDS SUMMARY | 2024-12-16 13:29 | XMS_ITS | Encounter Summary ---
Author Organization [employer] Address [address] [facility] 7t [place] [address] Care Team Providers Care Playground Director Name Role Phone Beba Whitten MD Primary Care Provider + Reason for Visit * Reason Comments Med Refill Encounter Details Date Type Department Care Team ([facility] st Contact Info) Description 11/20/2023 Refill [facility] MEDICINE [address] [place], [place] [phone] Beba Whitten MD [address] [place] [address] Mixed hyperlipidemia Social History Tobacco Use Types [...] Description 12/16/2024 1:30 PM EDT Office Visit [facility] OPTOMETRY [address] [place] [address] Chadwick, Eliza, OD [address] [place] [address] documented as of this encounter Visit Diagnoses Diagnosis Mixed hyperlipidemia documented in this encounter Additional Health Concerns Assessment Noted Time PHQ-9 Depression Total Score: 18 024 12:09 PM EST documented as of this encounter Care Teams Playground Director Relationship Specialty Start Date End Date Beba Whitten MD [address] [place] [address] PCP - General Family Medicine 06/04/16 Franky Obregon Observatory DirectorPacker 12/31/23 documented as of this encounter
--- OUTSIDE RECORDS SUMMARY | 2024-12-16 13:29 | XMS_ITS | Encounter Summary ---
Author Organization [employer] Address [address] [facility] [address] [place] [address] Care Team Providers Care Adjunct Communications Faculty Member Name Role Phone Beba Whitten MD Primary Care Provider + Reason for Visit * Reason Onset Date Comments PT1 05/30/2023 Encounter Details Date Type Department Care Team ([facility] st Contact Info) Description 05/30/2023 Telephone [facility] [address] [place], [place] [phone] Beba Whitten MD [address] [place] [address] PT1 Social History Tobacco Use Types Packs/Day [...] verified: YES Provider name or facility name: [facility] Facility Address: [address] [place] [address] Escort needed: Y/N: Yes Do you have a wheelchair: Y/N: No If yes- Manual or electric: no Visits: All future Appt's documented in this encounter Plan of Treatment Upcoming Encounters Date Type Department Care Team (Late st Contact Info) Description 12/16/2024 1:30 PM EDT Office Visit [facility] OPTOMETRY [address] [place] [address] Eliza Geano, OD [address] [place] [address] documented as of this encounter Visit Diagnoses Not on filedocumented in this encounter Additional Health Concerns Assessment Noted Time PHQ-9 Depression Total Score: 18 024 12:09 PM EST documented as of this encounter Care Teams Adjunct Communications Faculty Member Relationship Specialty Start Date End Date Beba Whitten MD [address] [place] [address] PCP - General Family Medicine 06/04/16 Franky Obregon Coke WorkerConsulting Sales Executive 12/31/23 documented as of this encounter
--- OUTSIDE RECORDS SUMMARY | 2024-12-16 13:29 | XMS_ITS | Encounter Summary ---
Author Organization [employer] Address [address] [facility] [address] [place] [address] Care Team Providers Care Sales Representative Graphic Art Name Role Phone Beba Whitten MD Primary Care Provider + Reason for Visit * Reason Comments Med Refill Encounter Details Date Type Department Care Team ([facility] st Contact Info) Description 06/24/2023 Refill [facility] MEDICINE [address] [place], [place] [phone] Beba Whitten MD [address] [place] [address] Primary hypertension Social History Tobacco Use Types [...] Description 12/16/2024 1:30 PM EDT Office Visit [facility] OPTOMETRY [address] [place] [address] Chadwick, Megan, OD [address] [place] [address] documented as of this encounter Visit Diagnoses Diagnosis Primary hypertension Unspecified essential hypertension documented in this encounter Additional Health Concerns Assessment Noted Time PHQ-9 Depression Total Score: 18 024 12:09 PM EST documented as of this encounter Care Teams Sales Representative Graphic Art Relationship Specialty Start Date End Date Beba Whitten MD [address] [place] [address] PCP - General Family Medicine 06/04/16 Franky Obregon Applied Psychology ChairEmployment Appeals Examiner 12/31/23 documented as of this encounter
--- OUTSIDE RECORDS SUMMARY | 2024-12-16 13:29 | XMS_ITS | Encounter Summary ---
Author Organization [employer] Address [address] [facility] [address] [place] [address] Care Team Providers Care Camp Director Name Role Phone Beba Whitten MD Primary Care Provider + Reason for Visit * Reason Onset Date Comments Nurse Triage 06/09/2023 Encounter Details Date Type Department Care Team ([facility] st Contact Info) Description 06/09/2023 Telephone [facility] MEDICINE [address] [place], [place] [phone] Beba Whitten MD [address] [place], [place] [phone] Nurse Triage Social History Tobacco Use Types [...] SE. 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 Pt reports BP of 149/90 HR 100 [...] Description 12/16/2024 1:30 PM EDT Office Visit [facility] OPTOMETRY [address] [place] [address] Eliza Genao, OD [address] [place] [address] documented as of this encounter Visit Diagnoses Not on filedocumented in this encounter Additional Health Concerns Assessment Noted Time PHQ-9 Depression Total Score: 18 024 12:09 PM EST documented as of this encounter Care Teams Camp Director Relationship Specialty Start Date End Date Beba Whitten MD [address] [place] [address] PCP - General Family Medicine 06/04/16 Franky Obregon Associate ScientistPlayground Equipment Erector 12/31/23 documented as of this encounter
--- OUTSIDE RECORDS SUMMARY | 2024-12-16 13:29 | XMS_ITS | Encounter Summary ---
Author Organization [employer] Address [address] [facility] [address] [place] [address] Care Team Providers Care Philosophy Instructor Name Role Phone Beba Whitten MD Primary Care Provider + Reason for Visit * Reason Comments Med Refill Encounter Details Date Type Department Care Team ([facility] st Contact Info) Description 11/09/2024 Refill [facility] MEDICINE [address] [place], [place] [phone] Beba Whitten MD [address] [place] [address] Social History Tobacco Use Types Packs/Day Years [...] Description 12/16/2024 1:30 PM EDT Office Visit [facility] OPTOMETRY [address] [place] [address] Eliza Genao, OD [address] [place] [address] documented as of this encounter Visit Diagnoses Not on filedocumented in this encounter Additional Health Concerns Assessment Noted Time PHQ-9 Depression Total Score: 18 024 12:09 PM EST documented as of this encounter Care Teams Philosophy Instructor Relationship Specialty Start Date End Date Beba Whitten MD [address] [place] [address] PCP - General Family Medicine 06/04/16 Franky Obregon Home Energy ConsultantGenerator Assembler 12/31/23 documented as of this encounter
--- OUTSIDE RECORDS SUMMARY | 2024-12-16 13:29 | XMS_ITS | Encounter Summary ---
Author Organization [employer] Address [address] [facility] [address], [place] [address] Care Team Providers Care Administrative And Program Specialist Name Role Phone Beba Whitten MD Primary Care Provider + Encounter Details Date Type Department Care Team (Late st Contact Info) Description 06/24/2022 Orders Only [facility] [address] [place], [place] [phone] Malaika Gleason LPN Social History Tobacco Use [...] Description 12/16/2024 1:30 PM EDT Office Visit [facility] OPTOMETRY [address] [place], [place] [phone] Chadwick, Eliza, OD [address] [place], [place] [phone] documented as of this encounter Visit Diagnoses Not on filedocumented in this encounter Additional Health Concerns Assessment Noted Time PHQ-9 Depression Total Score: 7 03/01/20 23 10:24 AM EST documented as of this encounter Care Teams Administrative And Program Specialist Relationship Specialty Start Date End Date Beba Whitten MD [address] [place] [address] PCP - General Family Medicine 06/04/16 Franky Obregon Oracle Database ManagerPost Partum Nurse 12/31/23 documented as of this encounter
--- OUTSIDE RECORDS SUMMARY | 2024-12-16 13:29 | XMS_ITS | Encounter Summary ---
Author Organization [employer] Address [address] [facility] [address] [place] [address] Care Team Providers Care Community Health Advocate Name Role Phone Beba Whitten MD Primary Care Provider + Reason for Visit * Reason Onset Date Comments Med Refill 12/16/2024 Encounter Details Date Type Department Care Team (Late st Contact Info) Description 12/16/2024 Refill [facility] MEDICINE [address] [place], [place] [phone] Name, MD Clemente [address] [place] [address] Social History Tobacco Use Types Packs/Day Years [...] Description 12/16/2024 1:30 PM EDT Office Visit [facility] OPTOMETRY [address] [place] [address] Chadwick, Eliza, OD [address] [place] [address] documented as of this encounter Visit Diagnoses Not on filedocumented in this encounter Additional Health Concerns Assessment Noted Time PHQ-9 Depression Total Score: 025 11:39 AM EDT documented as of this encounter Care Teams Community Health Advocate Relationship Specialty Start Date End Date Beba Whitten MD [address] [place] [address] PCP - General Family Medicine 06/04/16 Franky Obregon Speech Communication InstructorLead Engineer 12/31/23 documented as of this encounter
--- OUTSIDE RECORDS SUMMARY | 2024-12-16 13:29 | XMS_ITS | Clinical Summary ---
Author Organization [employer] Address [address] [place] [address] [address] [place] [address] Care Team Providers Care Lumber Planer Name Role Phone Beba Whitten MD Primary [...] by mouth 2 times daily. 022 Active zolpidem (Ambien) 10 MG tablet Take 10 mg by mouth at bedtime. 023 Active docusate sodium (Colace) 100 MG capsule Take 1 capsule (100 mg) by mouth Once per day. 90 capsule 3 025 2025 Active Blood Glucose Monitoring Suppl (FreeStyle [place] Lite) w/Device kit Use to check BS daily as instructed 1 kit 025 Active traMADol (Ultram) 50 MG tabletIndication s:Lumbar radiculopathy TAKE 1/2 TO 1 TABLET BY MOUTH THREE TIMES DAILY NEEDED FOR PAIN MODERATE TO SEVERE, STOP IF SEDATION FOR UP TO 5 DAYS 15 tablet 025 Active lisinopril 40 MG tabletIndication s:Primary hypertension TAKE 1 TABLET BY MOUTH EVERY DAY 90 tablet 1 025 Active Aspirin Low Dose 81 MG EC [...] DAILYTEST BLOOD SUGAR ONCE DAILY 100 strip Active albuterol (Ventolin HFA) 108 (90 Base) MCG/ACT inhaler INHALE 1 TO 2 PUFFS BY MOUTH EVERY 4 HOURS 18 g 2 Active loratadine (Claritin) 10 MG tabletIndication s:Non-seasonal allergic rhinitis due to pollen TAKE 1 TABLET BY MOUTH EVERY DAY 90 tablet 1 Active Tirzepatide (Mounjaro) 5 MG/0.5ML solution auto-injector Inject 5 mg under the skin 1 (one) time per week. 2 mL 1 025 2024 Active guaiFENesin (Mucinex) 600 MG 12 hr tabletIndication s:Acute cough Take 2 tablets (1,200 mg) by mouth 2 times daily as needed for cough for 14 days. Do not crush, chew, or split. 56 tablet Active benzonatate (Tessalon) 200 MG capsule Take 1 capsule (200 mg) by mouth if needed in the morning, at noon, and at bedtime for cough for up to 7 days. Do not crush or chew. 20 capsule 025 2024 Active dexAMETHasone (Decadron) 4 MG tablet Take 1 tablet (4 mg) by mouth with breakfast and with evening meal for 5 days. 10 tablet 025 2024 Active tiotropium (Spiriva Respimat) 2.5 MCG/ACT inhaler Inhale 1 puff at bed time. 017 2024 Discontinued(T herapy completed) fluticasone (Flovent HFA) 110 MCG/ACT inhaler Inhale 1 puff every 12 (twelve) hours. 12 g 3 025 2024 Discontinued(T herapy completed) dexAMETHasone (Decadron) 4 MG tablet Take 1 tablet (4 mg) by mouth with breakfast and with evening meal for 5 days. 10 tablet 025 2024 Discontinued(R eorder (will not trigger notification to Pharmacy)) Tirzepatide (Mounjaro) 2.5 MG/0.5ML solution auto-injector Inject 2.5 mg as directed 1 (one) time per week. INJECT ONE PEN (=2.5 MG) SUBCUTANEOUSLY ONCE A WEEK 2 mL 1 025 2024 Discontinued(D ose adjustment) meloxicam (Mobic) 7.5 MG tablet Take 1 tablet (7.5 mg) by mouth Once per day. 60 tablet 11 025 2024 Discontinued(I neffective) cyclobenzaprine (Flexeril) 10 MG tablet Take 1 tablet (10 mg) by mouth at bedtime for 10 days. 10 tablet 025 2024 Discontinued(I neffective) dexAMETHasone (Decadron) 4 MG tablet Take 1 tablet (4 mg) by mouth with breakfast and with evening meal for 5 days. 10 tablet 025 2024 Discontinued(R eorder (will not trigger notification to Pharmacy)) Active Problems Problem Noted Date Diagnosed Date [...] exam: Did not show to appointment at [facility] ophthalmology. Agreed to be referred to [facility] eye clinic CRC screen: up to date, [...] Eye exam: Will obtain OV note from [facility] ophthalmology office and fu with patient at [...] is aware that this is not a long-term solution Congratulated on weight reduction, encouraged her [...] Asthma-chronic obstructive p ulmonary disease overlap syndrome (CMS/HCC) 12/22/2012 Assessment & Plan (02/27/2024 2:01 PM [...] Crestor 40 mg + tight diabetes control. [facility] pain clinic, had bilateral epidural injection with [...] life style modifications, diet and referral to health safety specialist. Recommended to decrease soda and sugary [...] maxillary sinusitis 04/22/2018 Sudden visual loss 02/20/2018 4 Pradeep hematuria 06/04/2017 07/03/2023 Tinea pedis 04/14/2017 12/26/2022 Acute otitis externa 01/29/2017 023 Encounters Date Type Department Care Team Description 12/16/2024 10:30 AM EDT Office Visit [facility] [address] [place] [address] Beba Whitten MD Type 2 diabetes mellitus with hyperglycemia, without long-term current use of insulin (HCC) (Primary Dx); Subacute cough; Spinal stenosis at L4-L5 level; Lumbar radiculopathy 12/16/2024 Refill [facility] [address] [place] [address] Beba Whitten MD Lumbar radiculopathy; Primary hypertension; Mixed hyperlipidemia 12/16/2024 Refill [facility] [address] [place] [address] Nalini Bolanos ANP Acute cough 12/16/2024 Refill [facility] [address] [place] [address] Clemente Ruffin MD 12/16/2024 Refill [facility] [address] [place] [address] Jenelle Jimenez MD Chronic rhinitis; Trigger ring finger of right hand; Non-seasonal allergic rhinitis due to pollen 12/16/2024 Travel 12/16/2024 Telephone [facility] [address] [place] [address] Beba Whitten MD Chart Prep 11/26/2024 10:15 AM EDT Office Visit [facility] [address] [place] [address] Nalini Bolanos ANP Acute cough (Primary Dx) 11/26/2024 Travel 11/25/2024 Telephone [facility] [address] [place] [phone] Beba Whitten MD chart prep 11/25/2024 Telephone [facility] [address] [place] [phone] Beba Whitten MD Nurse Triage 11/17/2024 11:00 AM EDT Office Visit [facility] [address] [place] [phone] Clemente Ruffin MD Lumbar radiculopathy (Primary Dx); Spinal stenosis at L4-L5 level 11/17/2024 Travel 11/16/2024 Telephone [facility] [address] [place] [phone] Ricardo Aguero MA chart prwep 11/16/2024 Telephone [facility] [address] [place] [phone] Beba Whitten MD Nurse Triage 11/09/2024 Refill [facility] [address] [place] [phone] Beba Whitten MD 11/08/2024 9:00 AM EDT Office Visit [facility] [address] [place] [phone] Claudia Ellsi MD Primary osteoarthritis of right hip (Primary Dx) 11/08/2024 Travel 11/06/2024 Refill [facility] [address] [place] [phone] Beba Whitten MD Chronic rhinitis; Trigger ring finger of right hand; Lumbar radiculopathy; Primary hypertension; Mixed hyperlipidemia; Non-seasonal allergic rhinitis due to pollen from Last 3 Months Immunizations Immunization Administration [...] Mass Index 41.27 12/16/2024 10:14 AM EDT Plan of Treatment Upcoming Encounters Date Type Department Care Team (Late st Contact Info) Description 12/16/2024 1:30 PM EDT Office Visit [facility] OPT[facility] [address] [place] [address] Chadwick, Eliza, OD [address] [place] [address] Health Maintenance Due Date Last Done Comments [...] 12/01/2024 12/02/2023, 01/15, 01/25/2022, Additional history exists Lipid Panel 02/23/2025 02/24/2024, 05/16, 11/23/2021, Additional history exists SDOH Screening 06/08/2025 06/08/2024 Depression Monitoring 06/16/2025 12/16/2024, 025 Diabetes: Hemoglobin A1C 06/16/2025 025, 08/04/2024, 01/05/2024, Additional history exists Alcohol/Substance Use Screening 11/17/2025 11/17/2024 Disability Screening 11/17/2025 11/17/2024 Tobacco Screening 12/16/2025 12/16/2024 Colonoscopy 05/31/2029 06/01/2019 Colorectal Cancer Screening 05/31/2029 [...] long-term current use of insulin (HCC) POCT COVID-19 AG ORDONEZ ID NOW Routine 11/26/2024 10:59 AM EDT Acute cough POCT INFLUENZA B (ID NOW RAPID MOLECULAR) Routine 11/26/2024 10:59 AM EDT Acute cough POCT INFLUENZA A (ID NOW RAPID MOLECULAR) Routine 11/26/2024 10:59 AM EDT Acute cough VITAMIN D,25-OH,TOTAL,IA Routine 11/26/2024 8:09 AM EDT Lumbar radiculopathy T-SPOT(R).TB Routine 11/26/2024 8:09 AM EDT Encounter for preventive health examination BASIC METABOLIC PANEL Routine 11/26/2024 8:09 AM EDT Type 2 diabetes mellitus with [...] hyperglycemia, without long-term current use of insulin ([facility]) HM COLONOSCOPY Routine 06/01/2019 from Last 3 Months or Most Recently Relevant to Health Maintenance Results * XR Chest 2 Views (12/16/2024 11:55 AM EDT) Anatomical Region Laterality Modality Chest Radiographic Cecilia ging 12/16/2024 11:5 5 AM EDT Narrative 12/16/2024 12:16 PM EDT [address] [address] XRay Report Signed Patient: Marcia Corona MR#: [id number] : 1960 Acct:[id number] Age/Sex: 64 / F ADM Date: 12/16/24 Loc: HO.HHCX Attending Dr: Beba Whitten MD Ordering Physician: Beba Whitten MD Date of Service: 12/16/24 Procedure(s): XR chest 2V Accession Number(s): [id number] cc: Beba Whitten MD Reason for Exam: [...] Ronald Arriaga MD 12/16/2024 12:13 PM EDT Dictated By: Ronald Arriaga MD Signed By: <Electronically signed by Ronald Arriaga MD in OV> 12/16/24 1213 DD/ 1155 TD/TT: 12/16/24 1155 Clam Sorter: Procedure Note Donotzulemainterpreter, Image - 12/16/2024 [facility] [address] [place] [address] XRay Report Signed Patient: Mj Corona#: MM [id number] : 1960Acct:[id number] Age/Sex: 64 / FADM Date: 12/16/24 Loc: HO.CX Attending Dr: Beba Whitten MD Ordering Physician: Beba Whitten MD Date of Service: 12/16/24 Procedure(s): XR chest 2V Accession Number(s): [id number] cc: Beba Whitten MD Reason for Exam: [...] Ronald Arriaga MD 12/16/2024 12:13 PM EDT Dictated By: Ronald Arriaga MD Signed By: <Electronically signed by Ronald Arriaga MD in OV> 12/16/24 1213 DD/ 1155 TD/TT: 12/16/24 1155 Clam Sorter: Beba Whitten MD IMG XR PROCEDURES Edited Result - Final * (ABNORMAL) POCT Hgb A1c (12/16/2024 11:02 AM EDT) Hemoglobin A1C 6.8(A) 4.0 - 5.7 % QC Media Lot # [id number] Lot# Expiration Date 42,[id number] Blood 12/16/2024 11:0 2 AM EDT Beba Whitten MD POINT OF CARE TEST ENTER /EDIT ORDERABLES Final Result * POCT Glucose (12/16/2024 11:02 AM EDT) [facility] Glucose Blood, POC 189 60 - 200 mg/dL QC Media Lot # [id number] Lot# Expiration Date 22,726 Blood Capillary blood specimen / Unknown 12/16/2024 11:02 AM EDT Beba Whitten MD POINT OF CARE TEST ENTER /EDIT ORDERABLES Final Result * POCT Rapid Influenza B ORDONEZ ID NOW (11/26/2024 10:59 AM EDT) [facility] Influenza B Negative Negative, Indeterminate [facility] QC Media Lot # [id number] [facility] Lot# Expiration Date [facility] Swab 11/26/2024 10:5 9 AM EDT Nalini FERNANDES POINT OF CARE TEST ENTER/EDIT OR DERABLES Final Result Performing Organization Address [facility]/ZIP Co de Phone Number [facility] [address] [place] [phone] * POCT Rapid Influenza A ORDONEZ ID NOW (11/26/2024 10:59 AM EDT) [facility] Influenza A Negative Negative, Indeterminate [facility] QC Media Lot # [id number] [facility] Lot# Expiration Date [facility] Swab 11/26/2024 10:5 9 AM EDT Nalini Bolanos ANP POINT OF CARE TEST ENTER/EDIT OR DERABLES Final Result Performing Organization Address [facility]/ZIP Co de Phone Number [facility] [address] [place] [phone] * POCT Rapid Covid-19 ORDONEZ ID NOW (11/26/2024 10:59 AM EDT) Coronavirus Antigen PCR Negative Negative, Indeterminate, None Detected, Invalid, Specimen unsatisfactory for evaluation, Weakly Positive, 2+ QC Media Lot # [id number] Lot# Expiration Date [id number] Swab 11/26/2024 10:5 9 AM EDT us Nalini [facility] POINT OF CARE TEST ENTER/EDIT OR DERABLES Final Result * Vitamin D, 25-Hydroxy, Total, Immunoassay (11/26/2024 8:09 AM EDT) Vitamin D 25-OH Total 56.0 >30 ng/mL [facility] Comment: Health Based Reference Values*< 20 ng/mL Bukwcjdlj63-54 ng/mL Insufficient> 30 ng/mL Sufficient*Vikki BERGER. N Engl J Med. 2007;357:266-280There is no well-established upper level of normal vitamin Dlevels. Some laboratories use 50 ng/mL as an upper limit ofnormal. However, toxicity is patient-dependent and may occurat any level. Careful correlation with the patient'spresentation is necessary and, if there is concern forvitamin D toxicity, treatment should be consideredirrespective of the serum level.Care must be taken in interpreting Vitamin D results fromdifferent laboratories and methodologies. Published datademonstrated that results from patients undergoinghemodialysis may show a negative bias when tested withvarious automated 25-OH vitamin D assays when compared toLC-MS/MS.When testing samples from patients whose predominant form ofVitamin D is Vitamin D2, such as patients receiving VitaminD2 supplementation, results that are subtherapeutic shouldbe confirmed with another method such as LC-MS/MS. Blood 11/26/2024 8:09 AM EDT 11/26/2024 11:11 AM EDT Beba Whitten MD LAB BLOOD ORDERABLES Fin al Result [facility] [address] [place] [phone] * T-SPOT??.TB (11/26/2024 8:09 AM EDT) [facility] Signature T Spot TB Negative Negative [facility] Comment:A negative test resu lt does not exclude the possibilityof exposure to or infection with Mycobacteriumtuberculosis (M. tuberculosis). Patients with recentexposure to TB infected individuals exhibiting anegative T-SPOT.TB result should be considered forretesting within 6 weeks or if other relevant clinicalsymptoms indicate. Results from T-SPOT.TB testing mustbe used in conjunction with each individual'sepidemiological history, current medical status,and results of other diagnostic evaluations.The T-SPOT.TB test is qualitative and results arereported as positive, borderline, or negative, giventhat the test controls perform as expected. In linewith the Centers for Disease Control and Prevention's2010 recommendation to report quantitative measurementsalongside the qualitative result, the laboratoryprovides spot counts for informational purposes only.The T-SPOT.TB test should not be interpreted as aquantitative test. TS PANEL A 2 [facility] TS PANEL B 1 [facility] Negative Control Passed [facility] Positive Control Passed [facility] Comment:For additional infor tori, please refer tohttp://education.[employer]/faq/GMZ550(This link is being provided for informational/educational purposes only.)THIS TEST WAS PERFORMED AT:[facility] [place] [phone] SAUNDERS MD,PHD 11/26/2024 8:09 AM EDT 11/26/2024 11:11 AM EDT us Beba Whitten MD LAB BLOOD ORDERABLES Fin al Result [facility] [address] [place] [phone] * (ABNORMAL) Basic Metabolic Panel (11/26/2024 8:09 AM EDT) Sodium 141 135 - 145 mmol/L [facility] Potassium 3.9 3.3 - 5.1 mmol/L [facility] Chloride 105 96 - 108 mmol/L [facility] Carbon Dioxide 29 22 - 29 mmol/L [facility] Anion Gap 11(L) 12 - 20 [facility] Urea Nitrogen (BUN) 18(H) 9 - 16 mg/dL [facility] Creatinine, Serum 0.75 0.5 - 1.4 mg/dL [facility] Estimated Glomerular Filt Rate >60 [facility] Comment:Chronic Kidney Disea se: Estimated GFR < 60 mL/min/1.56g9Joaqxt Kidney Disease: Estimated GFR < 15 mL/min/1.73m2 Glucose 116(H) 60 - 115 mg/dL [facility] Calcium 9.7 8.4 - 10.2 mg/dL [facility] Blood Venous blood specimen / Unknown 11/26/2024 8:09 AM EDT 11/26/2024 11:11 AM EDT us Beba Whitten MD LAB BLOOD ORDERABLES Fin al Result [facility] [address] [place] [phone] * (ABNORMAL) Lipid Panel with Reflex to Direct LDL (02/24/2024 9:05 AM EST) Triglycerides 203(H) <150 mg/dL [facility] Comment:Desirable Triglyceri de: less than 150 mg/dLBorderline High Triglyceride 150-199 mg/dLHigh Triglyceride: 200-499 mg/dLVery High Triglyceride: greater than or equal to 5OO mg/dL Cholesterol 159 <200 mg/dL [facility] Comment:Desirable Cholestero l: less than 200 mg/dLBorderline High Cholesterol: 200-239 mg/dLHigh Cholesterol: greater than 239 mg/dL LDL Cholesterol Calculated 76 <100 mg/dL [facility] Comment:Desirable LDL: less than 100 mg/dLNear Optimal/Above Optimal LDL: 110- 129 mg/dLBorderline High LDL: 130-159 mg/dLHigh LDL: 160-189 mg/dLVery High LDL: greater than or equal to 190 mg/dL HDL Cholesterol 43 >40 mg/dL [facility] Comment:Desirable HDL: great er than 40 mg/dL Note: This HDL assay may give artificially low results in patients with liver disease. Blood 02/24/2024 9:05 AM EST 02/24/2024 11:36 AM EST us Beba Whitten MD LAB BLOOD ORDERABLES Fin al Result Performing Organization Address City/State/[facility] Co de Phone Number [facility] [address] [place] [phone] * BI Mammogram Screening Tomosynthesis Bilateral (12/02/2023 9:40 AM EDT) Anatomical Region Laterality Modality Breast Bilateral Mammography 12/02/2023 9:40 AM EDT Narrative 12/15/2023 4:12 PM EDT [address] [place] [address] Mammography Report Signed Patient: Marcia Corona MR#: [id number] : 1960 Acct:[id number] Age/Sex: 63 / F ADM Date: 12/02/23 Loc: HO.MAMMO Attending Dr: Beba Whitten MD Ordering Physician: Beba Whitten MD Results: 1Ne gative Date of Service: 12/02/23 Follow Up: 1 Year From [facility] ina Mammogram Procedure(s): MM tomosynthesis screening BI Accession Number(s): [id number] cc: Beba Whitten MD EXAMINATION: MM SCREENING [...] Shazia Jones DO 12/15/2023 04:09 PM EDT RP Dictated By: Shazia Jones DO Signed By: <Electronically signed by Shazia Jones DO in OV> 12/15/23 1609 DD/ 0940 TD/TT: 12/02/23 0950 Clam Sorter: Procedure Note Donotuseinterpreter, Image - 12/15/2023 [facility] [address] [place] [address] Mammography Report Signed Patient: Mj Corona#: MM [id number] : 1960Acct:[id number] Age/Sex: 63 / FADM Date: 12/02/23 Loc: HO.MAMMO Attending Dr: Beba Whitten MD Ordering Physician: Beba Whitten MDResults: 1Ne gative Date of Service: 12/02/23Follow Up: 1 Year From Orig ina Mammogram Procedure(s): MM tomosynthesis screening BI Accession Number(s): [id number] cc: Beba Whitten MD EXAMINATION: MM SCREENING [...] Shazia Jones DO 12/15/2023 04:09 PM EDT RP Dictated By: Shazia Jones DO Signed By: <Electronically signed by Shazia Jones DO in OV> 12/15/23 1609 DD/ 0940 TD/TT: 12/02/23 0950 Clam Sorter: Beba Whitten MD IMG BI PROCEDURES Final Result * Hepatitis Panel, General (06/04/2023 9:46 AM EDT) Hepatitis A IgM Nonreactive Nonreactive [facility] Comment:IgM antibodies to ALMODOVAR V not detected; does not exclude earlyacute or recovered HAV infection. ~Hepatitis B Surface Antibody NONREACTIVE Nonreactive [facility] Comment:Nonreactive: < 8.00 mIU/mL Hepatitis B Core Antibody Nonreactive Nonreactive [facility] Hepatitis C Antibody Nonreactive Nonreactive [facility] Comment:Antibodies to HCV no t detected; does not exclude early acuteHCV infection. Hepatitis B Surface Ag Negative Negative [facility] Blood 06/04/2023 9:46 AM EDT 06/04/2023 11:20 AM EDT us Beba Whitten MD LAB BLOOD ORDERABLES Fin al Result [facility] [address] [place] [phone] * (ABNORMAL) Albumin, Random Urine W/Creatinine (06/04/2023 9:46 AM EDT) Creatinine, Urine 185.21 mg/dL [facility] Microalbumin Urine 334.0 mg/L H [facility] Microalbum Creatinine Ratio Ur 180.3(H) <30 ug/mg cr [facility] Comment:Albumin/Creatinine R atio Reference Ranges: Normal: < 30 ug/mg creatinine Microalbuminuria: 30 - 300 ug/mg creatinineClinical Albuminuria: > 300 ug/mg creatinine Urine (Urine, Random) 06/04/2023 9:46 AM EDT 06/04/2023 11:31 AM EDT us Beba Whitten MD LAB URINE ORDERABLES Fin al Result Performing Organization Address [facility] Co de Phone Number [facility] [address] [place] [phone] * Hm Colonoscopy (06/01/2019) Colonoscopy Normal Normal [facility] 06/01/2019 Beba Whitten MD HEALTH MAINTENANCE Edite d Result - Final Performing Organization Address [facility] Co de Phone Number [facility] [address] [place] [phone] from Last 3 Months or Most Recently Relevant to Health Maintenance [facility] Care Teams Lumber Planer Relationship Specialty Start Date End Date Beba Whitten MD [address] [place] [phone] PCP - General Family Medicine 06/04/16 Franky Obregon Marketing Communications LeaderRotary Veneer Machine Operator 12/31/23
--- OUTSIDE RECORDS SUMMARY | 2024-12-16 13:29 | XMS_ITS | Encounter Summary ---
Author Organization [employer] Address [address] [facility] [address] [place] [address] Care Team Providers Care Gelatin Dynamite Packing Operator Name Role Phone Beba Whitten MD Primary Care Provider + Reason for Visit * Reason Onset Date Comments PT-1 12/26/2023 Encounter Details Date Type Department Care Team ([facility] st Contact Info) Description 12/26/2023 Telephone [facility] [address] [place], [place] [phone] Beba Whitten MD [address] [place] [address] PT-1 Social History Tobacco Use Types Packs/Day [...] Y/N: Yes Provider name or facility name: [facility] Facility Address: [address] [place] [address] Escort needed: Y/N: No Do you have a wheelchair: Y/N: No If yes- Manual or electric: (Uses Cane) Visits: Once a month documented in this encounter Plan of Treatment Upcoming Encounters Date Type Department Care Team (Late st Contact Info) Description 12/16/2024 1:30 PM EDT Office Visit [facility] [address] [place] [address] Eliza Genao, OD [address] [place] [address] documented as of this encounter Visit Diagnoses Not on filedocumented in this encounter Additional Health Concerns Assessment Noted Time PHQ-9 Depression Total Score: 18 024 12:09 PM EST documented as of this encounter Care Teams Gelatin Dynamite Packing Operator Relationship Specialty Start Date End Date Beba Whitten MD [address] [place] [phone] PCP - General Family Medicine 06/04/16 Franky Obregon Physics TeacherOncology Rep 12/31/23 documented as of this encounter
--- OUTSIDE RECORDS SUMMARY | 2024-12-16 13:29 | XMS_ITS | Encounter Summary ---
Author Organization [employer] [facility] Address [address] [place] [id number] Care Team Providers Care Child Custody Evaluator Name Role Phone Beba Whitten MD Primary Care Provider + Encounter Details Date Type Department Care Team (Late st Contact Info) Description 04/05/2022 Orders Only [facility] [address] [place] [address] Alycia Iglesias LPN Social History Tobacco Use [...] Office Visit [facility] [address] [place] [address] Eliza Genao, OD [address] [place] [address] documented as of this encounter Visit Diagnoses Not on filedocumented in this encounter Care Teams Child Custody Evaluator Relationship Specialty Start Date End Date Beba Whitten MD [address] [place] [address] PCP - General Family Medicine 06/04/16 Franky Obregon Sports ReporterFine Grader 12/31/23 documented as of this encounter
--- OUTSIDE RECORDS SUMMARY | 2024-12-16 13:29 | XMS_ITS | Encounter Summary ---
Author Organization [employer] Address [address] [facility] 7 [place] [address] Care Team Providers Care Desulfurizer Operator Name Role Phone Beba Whitten MD Primary Care Provider + Reason for Visit * Reason Onset Date Comments Med Refill 12/16/2024 Encounter Details Date Type Department Care Team (Late st Contact Info) Description 12/16/[address] [facility] [address] [place] [address] Jenelle Jimenez MD [address] [place] [address] Chronic rhinitis; Trigger ring finger of right hand; Non-seasonal allergic rhinitis due to pollen Social History Tobacco Use Types Packs/Day Years [...] Assessment Author Several days 12/16/2024 11:39 AM Liliana Vasquez MA * Trouble concentrating on things, such as reading the newspaper or watching television Answer Date of Assessment Author Several days 12/16/2024 11:39 AM SUSIT Liliana Torres MA * Moving or speaking so slowly that other people could have noticed? Or the opposite - being so fidgety or restless that you have been moving around a lot more than usual. Answer Date of Assessment Author More than half the days 12/16/2024 11:39 AM Liliana Vasquez MA * Thoughts that you would be better off or hurting yourself in some way Answer Date of Assessment Author Nearly every day 12/16/2024 11:39 AM Liliana Vasquez MA * Patient Health Questionnaire-9 Score Answer Date of Assessment Author 12/16/2024 11:39 AM SUSIT Liliana Torres MA * How difficult have [...] Description 12/16/2024 1:30 PM EDT Office Visit [facility] [address] [place] [address] Eliza Genao, OD [address] [place] [address] documented as of this encounter Visit Diagnoses Diagnosis Chronic rhinitis Trigger ring finger of right hand Non-seasonal allergic rhinitis due to pollen documented in this encounter Additional Health Concerns Assessment Noted Time PHQ-9 Depression Total Score: 025 11:39 AM EDT documented as of this encounter Care Teams Desulfurizer Operator Relationship Specialty Start Date End Date Beba Whitten MD [address] [place] [address] PCP - General Family Medicine 06/04/16 Franky Obregon Store CashierPhoto Tube Assembler 12/31/23 documented as of this encounter
--- OUTSIDE RECORDS SUMMARY | 2024-12-16 13:29 | XMS_ITS | Encounter Summary ---
Author Organization [employer] [facility] Address [address] [place] [address] Care Team Providers Care Environmental Services Worker Name Role Phone Beba Whitten MD Primary Care Provider + Reason for Visit * Reason Onset Date Comments Durable Medical Equipment 07/04/2022 Encounter Details Date Type Department Care Team ([facility] st Contact Info) Description 07/04/2022 Telephone [facility] [address] [place], [place] [phone] Beba Whitten MD [address] [place] [address] Durable Medical Equipment Social History Tobacco Use [...] 9:51 AM EDT Tc from Leia with [facility] requesting a shower bar. Please contact Leia at [phone] documented in this encounter Plan of Treatment Upcoming Encounters Date Type Department Care Team (Late st Contact Info) Description 12/16/2024 1:30 PM EDT Office Visit [facility] [address] [place] [address] Eliza Genao, OD [address] [place] [address] documented as of this encounter Visit Diagnoses Not on filedocumented in this encounter Additional Health Concerns Assessment Noted Time PHQ-9 Depression Total Score: 7 05/16/19 23 10:24 AM EST documented as of this encounter Care Teams Environmental Services Worker Relationship Specialty Start Date End Date Beba Whitten MD [address] [place] [address] PCP - General Family Medicine 06/04/16 Franky Obregon Reading Intervention TeacherParts Assembler 12/31/23 documented as of this encounter
--- OUTSIDE RECORDS SUMMARY | 2024-12-16 13:29 | XMS_ITS | Encounter Summary ---
Author Organization [employer] Address [address] [facility] [address] [place] [address] Care Team Providers Care Water Project Manager Name Role Phone Beba Whitten MD Primary Care Provider + Reason for Visit * Reason Onset Date Comments Med Refill 12/16/2024 Encounter Details Date Type Department Care Team (Late st Contact Info) Description 12/16/2024 Refill [facility] [address] [place], [place] [phone] Nalini Bolanos, ANP [address] [place] [address] Acute cough Social History Tobacco Use Types Packs/Day Years [...] Description 12/16/2024 1:30 PM EDT Office Visit [facility] [address] [place] [address] Chadwick, Eliza, OD [address] [place] [address] documented as of this encounter Visit Diagnoses Diagnosis Acute cough documented in this encounter Additional Health Concerns Assessment Noted Time PHQ-9 Depression Total Score: 025 11:39 AM EDT documented as of this encounter Care Teams Water Project Manager Relationship Specialty Start Date End Date Beba Whitten MD [address] [place] [address] PCP - General Family Medicine 06/04/16 Franky Obregon Network Operations Center EngineerBin Cleaner 12/31/23 documented as of this encounter
--- OUTSIDE RECORDS SUMMARY | 2024-12-16 13:29 | XMS_ITS | Encounter Summary ---
Author Organization [employer] Address [address] [facility] 7[address] [place] [address] Care Team Providers Care Meat Soaker Name Role Phone Beba Whitten MD Primary Care Provider + Encounter Details Date Type Department Care Team (Latest Contact Info) Description 12/16/2024 Travel Social History Tobacco Use Types Packs/Day Years [...] Author Nearly every day 12/16/2024 11:39 AM SUSIT Liliana Torres MA * Trouble falling or staying asleep, or sleeping too much Answer Date of Assessment Author Nearly every day 12/16/2024 11:39 AM SUSIT Liliana Torres MA * Feeling tired or [...] 12/16/2024 1:30 PM EDT Office Visit [facility] [address] [place] [address] Eliza Genao, OD [address] [place] [address] documented as of this encounter Visit Diagnoses Not on filedocumented in this encounter Additional Health Concerns Assessment Noted Time PHQ-9 Depression Total Score: 025 11:39 AM EDT documented as of this encounter Care Teams Meat Soaker Relationship Specialty Start Date End Date Beba Whitten MD [address] [place] [address] PCP - General Family Medicine 06/04/16 Franky Obregon Biometrics HeadBoom Worker 12/31/23 documented as of this encounter
--- OUTSIDE RECORDS SUMMARY | 2024-12-16 13:29 | XMS_ITS | Encounter Summary ---
Author Organization [employer] Address [address] [facility] [address] [place] [address] Care Team Providers Care Director Of Teaching And Learning Name Role Phone Beba Whitten MD Primary Care Provider + Reason for Visit * Reason Onset Date Comments {PT1 06/26/2023 Encounter Details Date Type Department Care Team ([facility] st Contact Info) Description 06/26/2023 Telephone [facility] [address] [place], [place] [phone] Beba Whitten MD [address] [place] [address] {PT1 Social History Tobacco Use Types Packs/Day [...] / denial letter via mail. PT-1 Request [id number] Authorized [facility] [address] [place] [address] Dr Pao BUCKLEY * Telephone Encounter - Breanna Hernadez - 06/26/2023 11:39 AM EDT Patient calling requesting PT1 Home Address verified: Y/N: Yes Provider name or facility name: [facility] Facility Address: [address] [place] [address] [place] [address] Escort needed: Y/N: No Do you have a wheelchair: Y/N: No but cane If yes- Manual or electric: n/a Visits: 12 a year documented in this encounter Plan of Treatment Upcoming Encounters Date Type Department Care Team (Late st Contact Info) Description 12/16/2024 1:30 PM EDT Office Visit [facility] [address] [place] [address] Eliza Genao, OD [address] [place] [address] documented as of this encounter Visit Diagnoses Not on filedocumented in this encounter Additional Health Concerns Assessment Noted Time PHQ-9 Depression Total Score: 18 024 12:09 PM EST documented as of this encounter Care Teams Director Of Teaching And Learning Relationship Specialty Start Date End Date Beba Whitten MD [address] [place] [address] PCP - General Family Medicine 06/04/16 Franky Obregon White Lead FiltererClient Service Supervisor 12/31/23 documented as of this encounter
== END 2024-12-16 11:40 | disposition home or self-care (01) ==
LOC: HO.HHCX 11:39
PROVIDERS: Visit Provider Internal Medicine
DX: M48.061 Spinal stenosis, lumbar region without neurogenic claudication (principal)
CPT/HCPCS: 71046

== ENCOUNTER → 2024-12-16 11:40 | Outpatient (BNV) | payer MEDICAID, SELFPAY | PROVIDERS: Visit Provider Radiology Diagnostic Radiology | DX: R05.9 Cough, unspecified (principal) | CPT/HCPCS: 71046 ==

== ENCOUNTER 2025-01-06 08:25 | Outpatient (REF) | payer MEDICAID, SELFPAY | END 2025-01-06 08:26 | disposition home or self-care (01) | LOC: HO.HOSX 08:25 | PROVIDERS: Visit Provider Physician Assistant | DX: Z13.89 Encounter for screening for other disorder (principal) ==